=== PATIENT | male | born 1940 | race Caucasian/White ===

== ENCOUNTER 2016-10-17 08:38 | Emergency (ER) | payer OTHER, BC ==
[~2016-10-17] VITALS: Ht 177.8 cm; Wt 89.6 kg
[~2016-10-17 08:38] MED LIST: ASPEC81 PO; FISHOIL PO; LANS15CA6 PO; METO-551 PO; MULT-506 PO; NITR0.4S UT; SILO8CAP PO; THIA100T11 PO; red yeast rice PO
[2016-10-17 08:44] VITALS: Ht 177.8 cm; Wt 89.6 kg
[2016-10-17 08:50] VITALS: O2SAT 95
[2016-10-17] MEDS ORDERED: ASPI81TA28 PO (09:21)
[2016-10-17] MEDS ORDERED: OMEG10007 PO (09:21)
[2016-10-17 09:24] LABS: BASO % 0.2 %; BASO ABS # 0.02 K/uL (0-0.2); COMPLETE YES; EOS % 0.2 %; HEMATOCRIT 40.7 % (42-52); IG% 0.2 %; LYMPH % 8.3 %; LYMPH ABS # 0.78 K/uL (1.2-3.4); MEAN CELL VOLUME 81.6 fL (80-100); MEAN CORPUSCULAR HEMOGLOBIN 28.9 pg (25-34); MEAN CORPUSCULAR HGB CONC 35.4 g/dl (32-36); MEAN PLATELET VOLUME 9.4 fL (7.4-10.4); MONO % 5.9 %; NEUT % 85.2 %; PLATELET COUNT 217 K/uL (130-400); RED BLOOD COUNT 4.99 M/uL (4.7-6.1); WHITE BLOOD COUNT 9.37 K/uL (4.8-10.8)
--- NOTE | 2016-10-17 09:33 | EMERGENCY ROOM VISIT NOTE ---
History Report prepared by Giancarlo: Cathy Perez Under the Supervision of: Dr. Judy Perez M.D. First contact with patient: 08:58 Chief Complaint: CHEST PAIN Stated Complaint: CHEST PAIN,SWEATING Nursing Triage Summary: pt reports cough, congestion X 4 days , with chest pain starting 2 days ago last night cold sweats , pt reports " I feel miserable " + mucus production, yellow brown in color, History of Present Illness The patient is a 75 year old male who presents to the Emergency Room with complaints of persistent chest pain that started two days ago. He rates his discomfort as a 9/10 in severity. The patient is also experiencing a productive cough with yellow-brown sputum and sinus congestion that started 3 days ago. Additionally, the patient experienced "cold sweats" last night and he states that he is also experiencing generalized weakness. The patient reports that he experiences epigastric abdominal pain with coughing. He adds that he has a history of GERD. Source of History: patient Onset: 2 days ago Position: chest Symptom Intensity: 9/10 Timing: other (persistent) Associated Symptoms: + abdominal pain (epigastric, with coughing), + cough ( productive with yellow-brown sputum), + weakness (generalized) Note: sinus congestion, "cold sweats" Review of Systems See HPI for pertinent positives & negatives. A total of 10 systems reviewed and were otherwise negative. Past Medical & Surgical Medical Problems: (1) Cardiac stent placement x3 (2) Heart disease Surgical Problems: (1) H/O cardiac catheterization Family History Heart disease Social History Smoking Status: Former Smoker Alcohol Use: occasionally Marital Status: Occupation Status: retired Current/Historical Medications Scheduled Aspirin (Aspirin Ec), 81 MG PO DAILY Azithromycin (Zithromax Z-John), 0 PO UD Lansoprazole (Prevacid), 30 MG PO DAILY Metoprolol Tartrate (Lopressor), 50 MG PO DAILY Multivitamin (Multivitamin), 1 TAB PO DAILY Nitroglycerin (Nitrostat), 0.4 MG UT PRN Oseltamivir (Tamiflu), 75 MG PO DAILY Silodosin (Rapaflo), 8 MG PO HS Thiamine Hcl (Vitamin B-1), 100 MG PO DAILY [red yeast rice], 1 TAB PO DAILY PRN Miscellaneous Medications Fish Oil ([place]-3), 1 CAP PO Allergies Coded Allergies: Ezetimibe (Verified Adverse Reaction, Unknown, MYOPATHY, 10/17/16) Statins (Verified Adverse Reaction, Unknown, MYOPATHY, 10/17/16) Physical Exam Vital Signs Date Time Temp Pulse Resp B/P Pulse Ox O2 Delivery O2 Flow Rate FiO2 10/17/16 12:08 37.9 75 23 111/63 95 10/17/16 11:58 75 23 111/63 95 10/17/16 11:53 77 28 96 10/17/16 11:48 77 26 95 10/17/16 11:43 76 0 95 10/17/16 11:38 77 0 95 10/17/16 11:33 77 29 95 10/17/16 11:28 75 30 124/61 96 10/17/16 11:23 76 26 94 10/17/16 11:18 73 27 94 10/17/16 11:13 74 10 97 10/17/16 11:08 122/67 10/17/16 11:05 78 31 90 Nasal Cannula 2.0 10/17/16 11:00 77 30 91 10/17/16 09:52 77 24 132/74 96 Room Air 10/17/16 09:51 94 10/17/16 08:50 95 Room Air 10/17/16 08:47 74 10/17/16 08:44 37.9 74 20 144/77 96 Room Air Physical Exam CONSTITUTIONAL: The patient is in mild distress. Patient appears non-toxic. HEENT: No icterus, moist mucous membranes NECK: No meningismus, trachea is midline. CARDIOVASCULAR: Regular rate, normal perfusion RESPIRATORY: Unlabored breathing. Clear to auscultation. GASTROINTESTINAL: Non-tender GENITOURINARY: No flank tenderness MUSCULOSKELETAL: Full range of motion NEUROLOGIC: No acute gross focal deficits. PSYCHIATRIC: Normal affect SKIN: Normal for ethnicity. Medical Decision & Procedures ER Provider Diagnostic Interpretation: X-ray results as stated below per interpretation by me and the radiologist. CHEST 2 VIEWS ROUTINE IMPRESSION: No acute cardiopulmonary findings. Electronically signed by: Braeden Alcantar M.D. 10/17/2016 9:51 AM Dictated Date/Time: 10/17/2016 9:50 AM Laboratory Results 10/17/16 08:53 Red Blood Count 4.99, Mean Corpuscular Volume 81.6, Mean Corpuscular Hemoglobin 28.9, Mean Corpuscular Hemoglobin Concent 35.4, Mean Platelet Volume 9.4, Neutrophils (%) (Auto) 85.2, Lymphocytes (%) (Auto) 8.3, Monocytes (%) (Auto) 5.9, Eosinophils (%) (Auto) 0.2, Basophils (%) (Auto) 0.2, Neutrophils # (Auto) 7.98, Lymphocytes # (Auto) 0.78, Monocytes # (Auto) 0.55, Eosinophils # (Auto) 0.02, Basophils # (Auto) 0.02 10/17/16 08:53 Test 10/17/16 08:53 10/17/16 09:10 White Blood Count 9.37 K/uL (4.8-10.8) Red Blood Count 4.99 M/uL (4.7-6.1) Hemoglobin 14.4 g/dL (14.0-18.0) Hematocrit 40.7 % (42-52) Mean Corpuscular Volume 81.6 fL (80-100) Mean Corpuscular Hemoglobin 28.9 pg (25-34) Mean Corpuscular Hemoglobin Concent 35.4 g/dl (32-36) Platelet Count 217 K/uL (130-400) Mean Platelet Volume 9.4 fL (7.4-10.4) Neutrophils (%) (Auto) 85.2 % Lymphocytes (%) (Auto) 8.3 % Monocytes (%) (Auto) 5.9 % Eosinophils (%) (Auto) 0.2 % Basophils (%) (Auto) 0.2 % Neutrophils # (Auto) 7.98 K/uL (1.4-6.5) Lymphocytes # (Auto) 0.78 K/uL (1.2-3.4) Monocytes # (Auto) 0.55 K/uL (0.11-0.59) Eosinophils # (Auto) 0.02 K/uL (0-0.5) Basophils # (Auto) 0.02 K/uL (0-0.2) RDW Standard Deviation 39.8 fL (36.4-46.3) RDW Coefficient of Variation 13.3 % (11.5-14.5) Immature Granulocyte % (Auto) 0.2 % Immature Granulocyte # (Auto) 0.02 K/uL (0.00-0.02) Anion Gap 13.0 mmol/L (3-11) Est Creatinine Clear Calc Drug Dose 54.5 ml/min Estimated GFR () 61.4 Estimated GFR (Non- 53.0 BUN/Creatinine Ratio 9.7 (10-20) Calcium Level 9.3 mg/dl (8.5-10.1) Influenza Type A Antigen POS for Influ A (NEG) Influenza Type B Antigen Neg for Influ B (NEG) Labs reviewed by ED physician. Medications Administered Medications (Trade) Dose Ordered Sig/[place] Route Start Time Stop Time Status Last Admin Dose Admin Acetaminophen (Tylenol Tab) 1,000 mg NOW STAT PO 10/17/16 11:56 10/17/16 11:57 DC 10/17/16 12:05 1,000 MG Ibuprofen (Advil Tab) 400 mg NOW STAT PO 10/17/16 11:56 10/17/16 11:57 DC 10/17/16 12:05 400 MG ECG Indication: chest pain Rate (beats per minute): 75 Rhythm: sinus rhythm Findings: nonspecific-ST abn, no ectopy, other (normal axis) ED Course 09: Past medical records reviewed. The patient was evaluated in room A9. A complete history and physical examination was performed. 1153: Upon reexamination the patient is doing well. I discussed results and treatment plan with the patient. He verbalizes agreement and understanding. The patient is ready for discharge. Medical Decision Differential diagnoses include but are not limited to; viral syndrome, pneumonia. 75 year presented to the emergency room with upper respiratory symptoms as well as cough. Positive flu. Chest x-ray negative for pneumonia. Vitals within normal limits. Screening labs negative. Discharged Tamiflu Z-John. Advised to take Tylenol Motrin every 6 hours. Impression Primary Impression: Influenza A Scribe Attestation The scribe's documentation has been prepared under my direction and personally reviewed by me in its entirety. I confirm that the note above accurately reflects all work, treatment, procedures, and medical decision making performed by me. Departure Information Dispostion Home / Self-Care Prescriptions Azithromycin (ZITHROMAX Z-JOHN) 250 Mg Tab 0 PO UD, #1 PKT Prov: Judy Perez MD 10/17/16 Oseltamivir (Tamiflu) 75 Mg Cap 75 MG PO DAILY, #10 CAP Prov: Judy Perez MD 10/17/16 Referrals Saurav Lucero M.D. (PCP) Forms HOME CARE DOCUMENTATION FORM, IMPORTANT VISIT INFORMATION Patient Instructions ED Flu, My [facility]
[2016-10-17 09:38] LABS: BUN/CREATININE RATIO 9.7 (10-20); CALCIUM 9.3 mg/dl (8.5-10.1); CREATININE 1.3 mg/dl (0.60-1.40); POTASSIUM 3.8 mmol/L (3.5-5.1)
--- NOTE | 2016-10-17 09:52 | DIAGNOSTIC IMAGING REPORT ---
CHEST 2 VIEWS ROUTINE CLINICAL HISTORY: Cough. Fever. COMPARISON STUDY: Chest radiograph December 30, 2014. FINDINGS: Lung volumes are normal. There is no pneumothorax or pleural effusion. Cardiac size is normal. Mediastinal contours are normal. There is no evidence of pulmonary edema. IMPRESSION: No acute cardiopulmonary findings. Electronically signed by: Braeden Alcantar M.D. 10/17/2016 9:51 AM Dictated Date/Time: 10/17/2016 9:50 AM
[2016-10-17] MEDS ORDERED: AZITTAB PO (11:51)
[2016-10-17] MEDS ORDERED: OSEL75CA12 PO (11:51)
[2016-10-17] MEDS ORDERED: IBUPROFEN 200 MG TAB PO STA (11:56)
[2016-10-17] MEDS ORDERED: ACETAMINOPHEN 500 MG TAB PO STA (11:56)
[2016-10-17 12:08] VITALS: BP 111/63; PULSE 75; TEMP 37.9; O2SAT 95
== END 2016-10-17 12:10 | disposition home or self-care (01) ==
LOC: C.EDB 08:39 → C.EDA 12:10
DX: J11.1 Influenza due to unidentified influenza virus with other respiratory manifestations (principal); I51.9 Heart disease, unspecified; Z87.891 Personal history of nicotine dependence; Z79.82 Long term (current) use of aspirin; Z82.49 Family history of ischemic heart disease and other diseases of the circulatory system

== ENCOUNTER 2017-06-03 12:21 | Emergency (ER) | payer OTHER, BC ==
[~2017-06-03] VITALS: Ht 177.8 cm; Wt 87.6 kg
[~2017-06-03 12:21] MED LIST changes: -ASPEC81 PO; +ASPI81TA28 PO; -FISHOIL PO; +OMEG10007 PO
[2017-06-03 12:28] VITALS: TEMP 36.8; Ht 177.8 cm; Wt 87.6 kg
[2017-06-03 12:50] VITALS: O2SAT 94
[2017-06-03] MEDS ORDERED: OPTIRAY 320 IV PRN (13:30)
[2017-06-03 13:53] LABS: BASO % 0.2 %; BASO ABS # 0.02 K/uL (0-0.2); COMPLETE YES; EOS % 1.1 %; HEMATOCRIT 40.4 % (42-52); IG% 0.1 %; LYMPH % 23.2 %; LYMPH ABS # 1.95 K/uL (1.2-3.4); MEAN CELL VOLUME 84.5 fL (80-100); MEAN CORPUSCULAR HEMOGLOBIN 28.9 pg (25-34); MEAN CORPUSCULAR HGB CONC 34.2 g/dl (32-36); MEAN PLATELET VOLUME 9.6 fL (7.4-10.4); MONO % 6.2 %; NEUT % 69.2 %; PLATELET COUNT 252 K/uL (130-400); RED BLOOD COUNT 4.78 M/uL (4.7-6.1)
--- NOTE | 2017-06-03 14:06 | DIAGNOSTIC IMAGING REPORT ---
CHEST ONE VIEW PORTABLE HISTORY: Evaluate Fever/Sepsis COMPARISON: Chest 10/17/2016. FINDINGS: The lungs are clear. Cardiac silhouette is normal in size. No pleural effusions. No pneumothorax. IMPRESSION: No acute process. Electronically signed by: Blas Knight M.D. 06/03/2017 2:05 PM Dictated Date/Time: 06/03/2017 2:02 PM
[2017-06-03 14:12] LABS: ALT/SGPT 25 U/L (12-78); AST/SGOT 14 U/L (15-37); BLOOD UREA NITROGEN 12 mg/dl (7-18); BUN/CREATININE RATIO 10.6 (10-20); CALCIUM 9.3 mg/dl (8.5-10.1); CARBON DIOXIDE 22 mmol/L (21-32); CHLORIDE 108 mmol/L (98-107); GLUCOSE 100 mg/dl (70-99); POTASSIUM 4.1 mmol/L (3.5-5.1); SODIUM 139 mmol/L (136-145)
[2017-06-03 14:17] LABS: ALKALINE PHOSPHATASE 103 U/L (45-117); CKMB/CK RATIO 1.8 (0-3.0)
--- NOTE | 2017-06-03 15:15 | DIAGNOSTIC IMAGING REPORT ---
HEAD CTA HISTORY: Left-sided head pain. TECHNIQUE: Multiaxial CT images of the head were performed both before and after the intravenous administration of contrast to evaluate the major cerebral vessels. Maximum intensity projection images were also obtained. A dose lowering technique was utilized adhering to the principles of ALARA. COMPARISON: Brain MRI 02/26/2015. FINDINGS: There is no mass, hematoma, midline shift, or acute infarct. Mild to moderate apical carotid plaque within the bilateral carotid siphons. There is 70-80% stenosis within the bilateral supraclinoid segments of the internal carotid arteries. Hypoplastic distal left vertebral artery. Otherwise, the distal vertebral arteries and basilar artery are widely patent. No significant stenosis, occlusion, or aneurysm within the bilateral ACAs, MCAs, or key attendant. Mild narrowing within the left carotid siphon due to the diffuse arthroscopic plaque. A 1.4 cm right posterior scalp nodule. This favors a sebaceous cyst. IMPRESSION: 1. No acute intracranial abnormality. 2. Approximately 70-80% focal stenosis within the supraclinoid segments of the bilateral internal carotid arteries. 3. No significant stenosis, occlusion, or aneurysm within the bilateral ACAs, MCAs, or key attendant. Electronically signed by: Blas Knight M.D. 06/03/2017 3:13 PM Dictated Date/Time: 06/03/2017 3:04 PM
--- NOTE | 2017-06-03 15:17 | DIAGNOSTIC IMAGING REPORT ---
CT NECK ANGIO WITH CONTRAST CLINICAL HISTORY: Left neck and head pain COMPARISON STUDY: No previous studies for comparison. TECHNIQUE: CT angiography was performed from the aortic arch to the skull base. MIP imaging was performed. The patient was scanned in a dynamic helical fashion during intravenous administration of 120 cc of Optiray 320. A dose lowering technique was utilized adhering to the principles of ALARA. CT DOSE: 1199.23 mGy.cm Technique: CT angiogram of the carotid and vertebral arteries was obtained using intravenous contrast and 3-D reconstruction. NASCET criteria was utilized. Findings: The right carotid revealed a 16% diameter origin stenosis, and no evidence of dissection. There is no evidence of aneurysm. The left carotid revealed a 33% diameter origin stenosis.. There is no evidence of aneurysm. There is no evidence of dissection. There is no evidence of left vertebral stenosis or dissection. The right vertebral artery is occluded at its origin and reconstitutes at the C5 level IMPRESSION: 1. 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 Less than 50% diameter stenoses of both internal carotid arteries 3. No evidence of left vertebral artery dissection or stenosis. Electronically signed by: Noe Vance M.D. 06/03/2017 3:16 PM Dictated Date/Time: 06/03/2017 3:06 PM
--- NOTE | 2017-06-03 15:51 | EMERGENCY ROOM VISIT NOTE ---
History Report prepared by Giancarlo: Juan Rao Under the Supervision of: Dr. Alexx Ivy D.O. First contact with patient: 13:08 Chief Complaint: CARDIAC ASSESSMENT Stated Complaint: SOB, NECK PAIN, LIKE WHEN HE HAD HEART ATTACK BEFO History of Present Illness The patient is a 76 year old male who presents to the Emergency Room with complaints of worsening left sided neck pain for the past couple of days that feels like cramping. The patient states that this pain is similar to last time that he had a heart attack, and this heart attack was a few years ago and stents were placed. The patient additionally states that he has eye pain and head pain. The patient has an extensive family history of heart problems. Source of History: patient Onset: a couple of days ago Position: neck (left sided) Quality: cramping Timing: worsening Note: Associated symptoms: eye and head pain Review of Systems See HPI for pertinent positives & negatives. A total of 10 systems reviewed and were otherwise negative. Past Medical & Surgical Medical Problems: (1) Cardiac stent placement x3 (2) Heart disease Surgical Problems: (1) H/O cardiac catheterization Family History Heart disease Social History Smoking Status: Never Smoker Alcohol Use: occasionally Marital Status: Occupation Status: retired Current/Historical Medications Scheduled Aspirin (Aspirin Ec), 81 MG PO DAILY Lansoprazole (Prevacid), 30 MG PO DAILY Multivitamin (Multivitamin), 1 TAB PO DAILY Nitroglycerin (Nitrostat), 0.4 MG UT PRN Silodosin (Rapaflo), 4 MG PO BID Thiamine Hcl (Vitamin B-1), 100 MG PO DAILY [red yeast rice], 1 TAB PO DAILY PRN Miscellaneous Medications Fish Oil ([place]-3), 1 CAP PO Allergies Coded Allergies: Ezetimibe (Verified Adverse Reaction, Unknown, MYOPATHY, 10/17/16) Statins (Verified Adverse Reaction, Unknown, MYOPATHY, 10/17/16) Physical Exam Vital Signs Date Time Temp Pulse Resp B/P (MAP) Pulse Ox O2 Delivery O2 Flow Rate FiO2 06/03/17 15:00 58 21 142/90 98 Room Air 06/03/17 14:00 60 23 123/91 95 Room Air 06/03/17 12:50 63 20 139/78 94 Room Air 06/03/17 12:50 94 Room Air 06/03/17 12:50 94 Room Air 06/03/17 12:48 66 06/03/17 12:28 36.8 72 18 166/85 95 Room Air Physical Exam CONSTITUTIONAL/VITAL SIGNS: Reviewed / noted above. GENERAL: Non-toxic in appearance. INTEGUMENTARY: Warm, dry, and [place]. HEAD: Normocephalic. EYES: without scleral icterus or trauma. ENT/OROPHARYNX: clear and moist. LYMPHADENOPATHY/NECK: Is supple without lymphadenopathy or meningismus. RESPIRATORY: Lungs clear and equal. CARDIOVASCULAR: Regular rate and rhythm. GI/ABDOMEN: Soft and nontender. No organomegaly or pulsatile mass. No rebound or guarding. Normal bowel sounds. EXTREMITIES: Warm and well perfused. BACK: No CVA tenderness. NEUROLOGICAL: Intact without focal deficits. PSYCHIATRIC: normal affect. MUSCULOSKELETAL: Normally developed with good muscle tone. Medical Decision & Procedures ER Provider Diagnostic Interpretation: Radiology results as stated below per my review and radiologist interpretation: HEAD CTA HISTORY: Left-sided head pain. TECHNIQUE: Multiaxial CT images of the head were performed both before and after the intravenous administration of contrast to evaluate the major cerebral vessels. Maximum intensity projection images were also obtained. A dose lowering technique was utilized adhering to the principles of ALARA. COMPARISON: Brain MRI 02/26/2015. FINDINGS: There is no mass, hematoma, midline shift, or acute infarct. Mild to moderate apical carotid plaque within the bilateral carotid siphons. There is 70-80% stenosis within the bilateral supraclinoid segments of the internal carotid arteries. Hypoplastic distal left vertebral artery. Otherwise, the distal vertebral arteries and basilar artery are widely patent. No significant stenosis, occlusion, or aneurysm within the bilateral ACAs, MCAs, or senior courtroom clerk. Mild narrowing within the left carotid siphon due to the diffuse arthroscopic plaque. A 1.4 cm right posterior scalp nodule. This favors a sebaceous cyst. IMPRESSION: 1. No acute intracranial abnormality. 2. Approximately 70-80% focal stenosis within the supraclinoid segments of the bilateral internal carotid arteries. 3. No significant stenosis, occlusion, or aneurysm within the bilateral ACAs, MCAs, or senior courtroom clerk. Electronically signed by: Blas Knight M.D. 06/03/2017 3:13 PM Dictated Date/Time: 06/03/2017 3:04 PM CHEST ONE VIEW PORTABLE HISTORY: Evaluate Fever/Sepsis COMPARISON: Chest 10/17/2016. FINDINGS: The lungs are clear. Cardiac silhouette is normal in size. No pleural effusions. No pneumothorax. IMPRESSION: No acute process. Electronically signed by: Blas Knight M.D. 06/03/2017 2:05 PM Dictated Date/Time: 06/03/2017 2:[address] NECK ANGIO WITH CONTRAST CLINICAL HISTORY: Left neck and head pain COMPARISON STUDY: No previous studies for comparison. TECHNIQUE: CT angiography was performed from the aortic arch to the skull base. MIP imaging was performed. The patient was scanned in a dynamic helical fashion during intravenous administration of 120 cc of Optiray 320. A dose lowering technique was utilized adhering to the principles of ALARA. CT DOSE: 1199.23 mGy.cm Technique: CT angiogram of the carotid and vertebral arteries was obtained using intravenous contrast and 3-D reconstruction. NASCET criteria was utilized. Findings: The right carotid revealed a 16% diameter origin stenosis, and no evidence of dissection. There is no evidence of aneurysm. The left carotid revealed a 33% diameter origin stenosis.. There is no evidence of aneurysm. There is no evidence of dissection. There is no evidence of left vertebral stenosis or dissection. The right vertebral artery is occluded at its origin and reconstitutes at the C5 level IMPRESSION: 1. 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 Less than 50% diameter stenoses of both internal carotid arteries 3. No evidence of left vertebral artery dissection or stenosis. Electronically signed by: Noe Vance M.D. 06/03/2017 3:16 PM Dictated Date/Time: 06/03/2017 3:06 PM Laboratory Results 06/03/17 13:00 Red Blood Count 4.78, Mean Corpuscular Volume 84.5, Mean Corpuscular Hemoglobin 28.9, Mean Corpuscular Hemoglobin Concent 34.2, Mean Platelet Volume 9.6, Neutrophils (%) (Auto) 69.2, Lymphocytes (%) (Auto) 23.2, Monocytes (%) (Auto) 6.2, Eosinophils (%) (Auto) 1.1, Basophils (%) (Auto) 0.2, Neutrophils # (Auto) 5.81, Lymphocytes # (Auto) 1.95, Monocytes # (Auto) 0.52, Eosinophils # (Auto) 0.09, Basophils # (Auto) 0.02 06/03/17 13:00 Test 06/03/17 13:00 White Blood Count 8.40 K/uL (4.8-10.8) Red Blood Count 4.78 M/uL (4.7-6.1) Hemoglobin 13.8 g/dL (14.0-18.0) Hematocrit 40.4 % (42-52) Mean Corpuscular Volume 84.5 fL (80-100) Mean Corpuscular Hemoglobin 28.9 pg (25-34) Mean Corpuscular Hemoglobin Concent 34.2 g/dl (32-36) Platelet Count 252 K/uL (130-400) Mean Platelet Volume 9.6 fL (7.4-10.4) Neutrophils (%) (Auto) 69.2 % Lymphocytes (%) (Auto) 23.2 % Monocytes (%) (Auto) 6.2 % Eosinophils (%) (Auto) 1.1 % Basophils (%) (Auto) 0.2 % Neutrophils # (Auto) 5.81 K/uL (1.4-6.5) Lymphocytes # (Auto) 1.95 K/uL (1.2-3.4) Monocytes # (Auto) 0.52 K/uL (0.11-0.59) Eosinophils # (Auto) 0.09 K/uL (0-0.5) Basophils # (Auto) 0.02 K/uL (0-0.2) RDW Standard Deviation 40.2 fL (36.4-46.3) RDW Coefficient of Variation 13.1 % (11.5-14.5) Immature Granulocyte % (Auto) 0.1 % Immature Granulocyte # (Auto) 0.01 K/uL (0.00-0.02) Erythrocyte Sedimentation Rate 8 mm/hr (0-14) Anion Gap 9.0 mmol/L (3-11) Est Creatinine Clear Calc Drug Dose 58.1 ml/min Estimated GFR () 74.7 Estimated GFR (Non- 64.4 BUN/Creatinine Ratio 10.6 (10-20) Calcium Level 9.3 mg/dl (8.5-10.1) Total Bilirubin 0.6 mg/dl (0.2-1) Direct Bilirubin 0.1 mg/dl (0-0.2) Aspartate Amino Transf (AST/SGOT) 14 U/L (15-37) Alanine Aminotransferase (ALT/SGPT) 25 U/L (12-78) Alkaline Phosphatase 103 U/L (45-117) Total Creatine Kinase 110 U/L (39-308) Creatine Kinase MB 2.0 ng/ml (0.5-3.6) Creatine Kinase MB Ratio 1.8 (0-3.0) Troponin I < 0.015 ng/ml (0-0.045) Total Protein 7.4 gm/dl (6.4-8.2) Albumin 4.1 gm/dl (3.4-5.0) Lipase 193 U/L (73-393) Laboratory results as stated above per my review. ECG Indication: other (neck pain) Rate (beats per minute): 64 Rhythm: normal sinus Findings: no ectopy, other (No acute injury) ED Course 1308: Previous medical records were reviewed. The patient was evaluated in room C11. A complete history and physical examination was performed. 1536: On reevaluation, the patient is doing well. I discussed the results and findings with the patient. He verbalized agreement of the treatment plan. He was discharged home. Medical Decision the differential was considered includes acute myocardial infarction, acute coronary syndrome, myocarditis, pericarditis, pericardial effusions /tamponade, esophageal perforation, thoracic aortic dissection, pulmonary embolism, pneumonia, pneumothorax, pancreatitis, shingles, acute cholecystitis, perforated abdominal viscus. This is a 76-year-old male who presents to the ED with a chief complaint of left -sided neck pain. The patient reports left-sided head pain and neck pain. This is been going on for the past several days. It seemed to be getting a little worse. 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 The patient's symptoms seem to be a little worse with certain movements. It is worse with palpation in the left soft tissue/muscular area. Exam was otherwise unremarkable. There is no lymphadenopathy, swelling or evidence of infection. Blood pressure was initially slightly elevated. He was told to follow-up for this. Sedimentation rate is 8, CBC is normal, complete metabolic panels normal , chest x-ray did not show acute disease. CT angiogram of the head and neck reveals some right vertebral artery occlusion with reconstitution. There is less than 50% stenosis of both carotid arteries. CT scan of the head reveals 70 -80% focal stenosis in the supraclinoid areas bilaterally which speaking with radiology, these are chronic findings. Medication Reconcilliation Current Medication List: was personally reviewed by me Blood Pressure Screening Patient's blood pressure: Elevated blood pressure Blood pressure disposition: Elevated BP felt to be situational Impression Primary Impression: Neck pain Scribe Attestation The scribe's documentation has been prepared under my direction and personally reviewed by me in its entirety. I confirm that the note above accurately reflects all work, treatment, procedures, and medical decision making performed by me. Departure Information Dispostion Home / Self-Care Referrals Saurav Lucero M.D. (PCP) Patient Instructions My [facility] Additional Instructions Take Tylenol as needed for pain. Follow-up with your doctor for further care and evaluation in 1-5 days. Return to the emergency department for worsening or new symptoms or any concerns. You have been examined and treated today on an emergency basis only. This is not a substitute for, or an effort to provide, complete comprehensive medical care. It is impossible to recognize and treat all injuries or illnesses in a single emergency department visit. It is therefore important that you follow up closely with your doctor. Call as soon as possible for an appointment.
[2017-06-03 16:17] VITALS: BP 158/91; PULSE 63; O2SAT 98
== END 2017-06-03 16:15 | disposition home or self-care (01) ==
LOC: C.EDB 12:23 → C.EDC 16:15
DX: M54.2 Cervicalgia (principal); I51.9 Heart disease, unspecified; Z98.61 Coronary angioplasty status; Z79.82 Long term (current) use of aspirin; Z79.899 Other long term (current) drug therapy; Z88.8 Allergy status to other drugs, medicaments and biological substances; Z82.49 Family history of ischemic heart disease and other diseases of the circulatory system

== ENCOUNTER 2019-10-10 12:02 | Observation (INO) ==
[2019-10-10 13:37] LABS: Basophils # (auto) 0.04 K/uL (0-0.2); Basophils % (auto) 0.5 %; Eosinophils # (auto) 0.11 K/uL (0-0.5); Eosinophils % (auto) 1.3 %; Immature Granulocytes # (auto) 0.01 K/uL (0.00-0.02); Immature Granulocytes % (auto) 0.1 %; Lymphocytes # (auto) 1.79 K/uL (1.2-3.4); Lymphocytes % (auto) 21.3 %; Mean Corpuscular Hemoglobin 29.2 pg (25-34); Mean Corpuscular Hgb Conc 34.1 g/dL (32-36); Mean Corpuscular Volume 85.4 fL (80-100); Mean Platelet Volume 9.6 fL (7.4-10.4); Monocytes # (auto) 0.59 K/uL (0.11-0.59); Neutrophils # (auto) 5.86 K/uL (1.4-6.5); Neutrophils % (auto) 69.8 %; Platelet Count 290 K/uL (130-400); RDW Standard Deviation 40.6 fL (36.4-46.3)
[2019-10-10 13:55] LABS: Albumin Level 3.8 gm/dl (3.4-5.0); BUN Creatinine Ratio 8.6 (10-20); Calcium 9.4 mg/dl (8.5-10.1); Est GFR (African American) 76.1; Est GFR (Non-African American) 65.7; Potassium 4.2 mmol/L (3.5-5.1)
[2019-10-10 14:03] LABS: Albumin Globulin Ratio 1.1 (0.9-2); Bilirubin,Total 0.7 mg/dl (0.2-1); Globulin 3.5 gm/dl (2.5-4.0); Total Protein 7.3 gm/dl (6.4-8.2); Troponin I 0.083 ng/ml (0-0.045)
[2019-10-10] MEDS ORDERED: IOVERSOL 100ml IV PRN (14:47)
--- NOTE | 2019-10-10 14:56 | Electrocardiogram Report ---
Test Reason : Blood Pressure : / mmHG Vent. Rate : 063 BPM Atrial Rate : 063 BPM P-R Int : 216 ms QRS Dur : 142 ms QT Int : 424 ms P-R-T Axes : 083 -44 080 degrees QTc Int : 433 ms Sinus rhythm with 1st degree A-V block Left axis deviation Right bundle branch block Abnormal ECG When compared with ECG of 12-MAR-2019 14:32, No significant change was found Confirmed by Ho Huff ([id number]) on 10/10/2019 2:55:31 PM Referred By: REFERRED SELF Confirmed By:Ho Huff
--- NOTE | 2019-10-10 15:19 | CT Scan Report ---
CT abd pelvis IV con only CLINICAL HISTORY: 78 years-old Male presenting with flank pain. TECHNIQUE: Multidetector CT of the abdomen and pelvis was performed after the administration of intra venous contrast. IV contrast: 94 mL of Optiray 320. One or more dose lowering techniques were used co nsistent with the principles of ALARA (as low as reasonably achievable), including automatic exposure control, mA or kV adjustment to individual patient size, and/or use of iterative reconstruction. COMPARISON: 03/05/2016. CT DOSE (mGy.cm): The estimated cumulative dose is 395.07 mGy.cm. FINDINGS: Powder Operator topogram: Cholecystectomy clips. Lung bases: Normal heart size. Coronary artery calcification. No pericardial or pleural effusion. Min imal dependent changes likely atelectasis. Liver: Normal morphology. No liver lesion. Patent hepatic vasculature. Biliary: No intrahepatic or extrahepatic biliary ductal dilatation. Gallbladder surgically absent. Pancreas: Mild parenchymal atrophy. Spleen: Normal. Adrenal glands: Normal. Kidneys and ureters: Normal. No hydronephrosis. Bladder: Mild circumferential bladder wall thickening. Pelvic organs: Prostate enlargement likely secondary to benign prostatic hyperplasia. Bowel: Mild diverticulosis of the proximal sigmoid and distal descending colon without wall thickenin g or pericolonic inflammatory change. The appendix is normal. No bowel obstruction. Duodenal divertic ulum noted at the level of the horizontal portion. Several loops of small bowel containing feces. Peritoneal cavity: No free fluid or intraperitoneal gas. 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 Lymph nodes: No enlarged lymph nodes in the abdomen or pelvis. Vasculature: Atherosclerosis of the normal caliber abdominal aorta. IVC patent. Abdominal wall: Normal. Musculoskeletal: Degenerative changes of the spine and sacroiliac joints. IMPRESSION: 1. No acute intra-abdominal pathology. 2. Feces in several loops of small bowel may indicate delayed transit or bacterial overgrowth. No manuelito wel obstruction. 3. Mild diverticulosis coli. No diverticulitis. 4. Prostatomegaly with mild chronic bladder outlet obstruction. ACT 112: Negative or not required by law. Electronically signed by: Saurav Brennan M.D. 10/10/2019 3:17 PM
[2019-10-10] MEDS ORDERED: ASPIRIN CHEW 324 MG PO STA (15:28)
[2019-10-10] MEDS ORDERED: ASPIRIN CHEW 324 MG ONE (15:40)
--- NOTE | 2019-10-10 18:32 | History & Physical Report ---
Date of Service October 10, 2019 Assessment & Plan (1) Chest pain, rule out acute myocardial infarction: Admit to PCU with maintenance mechanic 2nd shift Serial troponins Nitro SL for chest pain PRN NPO after midnight in case he requires stress test or cardiac cath (2) Unstable angina: Patient having ongoing intermittent chest pain at rest (although usually when he gets worked up with wrestling). Concerning for unstable angina given cardiac history. Will defer to cardiology regarding need for inpatient stress testing, he would not be able to do treadmill due to osteoarthritis. (3) Coronary artery disease: NSTEMI 06/2010 with x1 JAZMÍN to D1 and 1 JAZMÍN to OM Continue ASA, unclear why patient is not on BB but given current HR suspect due to bradycardia, intolerant to statins (although actual which ones he has tried is uncertain) (4) Dyslipidemia: Repeat lipid panel in AM. If very elevated he may be eligible for PCSK9 inhibitor given intolerance to statins as above. (5) Elevated PSA: [facility] nurse navigator consult placed to potentially expedite his urology appointment. The patient is more concerned about prostate cancer than his heart. (6) BPH (benign prostatic hyperplasia): Patient appears to be in denial about his lower urinary tract symptoms of poor stream, urinary frequency. Potentially contributing towards his mild chronic bladder outlet obstruction. Will defer introduction of 5 Alpha-reductase inhibitor to his urologists appointment. (7) Suprapubic pain: Patient "knows" this is his prostate causing his pain and he feels he is ridden with prostate cancer. I explained nothing was seen on his CT with regards to metastatic disease and we would set him up with an outpatient appointment with urology. UA showed no infection. He refused prostate exam on several occasions as he says it always hurt so it will still be tender now on exam. In lieu of prostate exam his WBC/UA WNL, no fevers or chills therefore I do not feel this represents an acute bacterial prostatitis. Large differential remains including: Bladder spasms related to urinary frequency from BPH Chronic prostatitis Interstitial cystitis Lumbar radiculopathy Mesenteric panniculitis Given pending cardiac workup I would avoid NSAIDs currently, however this would treat both potential prostatitis and cystitis and have him follow up with urology. Although prednisone would probably be better for mesenteric panniculitis if this is thought to be causing his pain. (8) Abdominal pain: This was the main reason he was sent over from the [place] due to concerns for urinary retention because of his enlarged prostate or kidney stones. He has neither. Despite this he does have significant b/l CVA tenderness which does appear deeper than his muscles - ?mesenteric panniculitis. Less severe he has epigastric and RUQ pain on deep palpation which he feels is different to his more acute suprapubic and CVA tenderness. Will consult GI for opinion and possible treatment of mesenteric panniculitis as I am not familiar with treating this and whether his pain could be related to this. (9) Mesenteric panniculitis: as above. unclear if this is causing his pain given the only finding on CT other than slow transit through his bowel. (10) GERD (gastroesophageal reflux disease): Possible cause of epigastric pain with gastritis but would not explain his CVA tenderness. GI consulted - mainly for above abdominal pain but if cardiac source of chest pain ruled out potentially may need EGD since he is on both PPI and H2 albert (11) DVT prophylaxis: SCDs. If staying beyond tomorrow I would consider starting chemical prophylaxis. (12) Discharge planning issues: Needs urology appointment set up on discharge. History of Present Illness Chief Complaint: Suprapubic pain Primary Care Provider: Saurav Lucero MD Germán Daniel is a 78 year old male who presents to the ER at the advice from his physician at the [place] due to bilateral CVA and suprapubic tenderness on palpation. I was unable to get much of a history from the patient as I mentioned his UA had not been resulted yet and he was insisting on being admitted for a prostate biopsy that I told him there was no way he would be able to have. He threatened to leave on several occasions saying I was not helping him and he was going to of prostate cancer. He did not care if he of a heart attack but he did not want to of prostate cancer in pain. It took over 60 minutes with the patient including a patient requested call to our plan consultant urologist Dr Barbosa to make him understand his acute problem was his heart and the reasons I did not feel his prostate was an acute issue right now. As such gaining much of a history from the patient was limited as he was not forthcoming with answering my questions and had his own agenda which appears to be his suprapubic pain is due to his prostate and he feels this is cancerous and needs to be dealt with now in order to get out of pain. With regards to his chest pain - this was not the reason for his visit to the ER however he had an elevated troponin and admits to having intermittent chest pains at rest and frequently on light exertion lasting for minutes at a time which is relieved with rest. No radiation. No currently in pain. Episodes at rest come on when he is worked up. With regards to his suprapubic "prostate" and CVA tenderness - as far as I can gather this started 3-4 weeks ago. No related to bowel movements or passing urine but worse on deep palpation. Constant ache. No nausea, vomiting, constipation, diarrhea or melena. Allergies Allergy/AdvReac Type Severity Reaction Status Date / Time ezetimibe AdvReac Unknown MYOPATHY Verified 09/13/19 09:28 Uktnmpc-Aee-Esw Reductase AdvReac Unknown MYOPATHY Verified 09/13/19 09:28 Inhibitor Home Medications Home Medications Medication Instructions Recorded Confirmed Type aspirin 81 mg PO HS 11/24/18 10/10/19 History multivitamin 1 tab PO QAM 11/24/18 10/10/19 History nitroglycerin [Nitrostat] 0.4 mg SUBLINGUAL UD 11/24/18 10/10/19 History omega 2-ehl-ygl-fish oil [Fish Oil] 1 cap PO QDL 11/24/18 10/10/19 History red yeast rice 600 mg PO QAM 11/24/18 10/10/19 History terazosin 1 mg PO BID 11/24/18 10/10/19 History vitamin B complex 1 tab PO QAM 11/24/18 10/10/19 History ranitidine HCl [Zantac] 150 mg PO BID #30 tab 03/12/19 10/10/19 Rx meloxicam 15 mg tablet 15 mg PO daily PRN #30 tab 07/24/19 10/10/19 Rx clonazepam 0.5 mg tablet 0.5 mg PO BID PRN #14 tab 08/27/19 10/10/19 Rx lansoprazole 30 mg capsule,delayed 30 mg PO BID 08/27/19 10/10/19 History release temazepam 15 mg capsule 15 mg PO HS PRN 08/27/19 10/10/19 History fluticasone propionate 50 2 sprays INTNAS DAILY #15.8 ml 09/13/19 10/10/19 Rx mcg/actuation nasal spray,suspension Past Med/Surg History Medical History Acid reflux (Chronic) Anxiety (Chronic) Chronic back pain (Chronic) Coronary artery disease Dyslipidemia Elevated PSA Heart attack (Chronic) Heart disease (Chronic) Hypertension No pertinent family history (Chronic) Weakness (Chronic) Surgical History H/O cardiac catheterization (Chronic) H/O heart artery stent (Chronic) History of bronchoscopy History of colonoscopy History of knee surgery right History of tonsillectomy S/P cholecystectomy (Chronic) Family History Father Myocardial infarction Other ASCVD (arteriosclerotic cardiovascular disease) Social History Preferred Language: Maori Communication Ability: Effective Visual Impairment: No Limitations Hearing Ability: Use of Hearing Aid Shagger Required: No Beliefs That Will Affect Care: None marital status: Current Living Situation: Family Current Living Situation Comment: Lives with son in 1 story house- 2 steps to enter the house current occupational status: retired Other Information That Helps Us Care for You: No Feels Safe at Home: Yes Safety Concerns: Feels Safe At This Time Smoking Status: Former smoker Tobacco Type: cigarettes and smokeless tobacco ; Do You Dip or Chew Tobacco: No ; Tobacco Cessation Education Requested by Patient: No Hx Alcohol Use: Yes Alcohol type: beer Alcohol Intake Frequency Comment: 2 beers a week Hx Substance Use: No Childhood Exposure to Second-Hand Smoke: Yes caffeine: Yes Dental Care, Regularly: No Physical Activity Frequency: 3-4 Times per Week Seatbelt Use: always Sunscreen Use: Yes Review of Systems Review of Systems: All systems reviewed & are unremarkable except as noted in HPI & below Physical Exam Constitutional: WD/WN, vitals as above Eyes: PERRL, conjunctivae normal, anicteric sclerae Neck: trachea midline, no thyromegaly Respiratory: normal respiratory effort, lungs clear to auscultation Cardiovascular: RRR, no murmur, no edema Gastrointestinal (Abdomen): Inspection/Auscultation: abdomen normal to inspection and normal bowel sounds; abdomen not distended Percussion/Palpation: + abdomen tender (suprapubic, epigastric and RUQ pain on deep palpation) and abdomen soft; no guarding and abdomen not rigid Musculoskeletal: no cyanosis or clubbing, extremities motor strength 5/5 Skin: no rashes, warm and dry Neurologic: moves all extremities and awake; no focal motor deficits and not confused Speech / Cognition: normal speech Motor/Sensory: no tremor, no pronator drift and no sensory deficit Psychiatric: Orientation: alert and oriented x 3 Affect: + irritable affect Mood: + irritable mood Genitourinary: + CVA tenderness (b/l equal) Lymphatic: no cervical or axillary lymphadenopathy Results & Data Vital Signs (Past 12 Hours) Vital Signs Temp Pulse Resp BP Pulse Ox 10/10/19 18:02 59 L 24 151/93 H 97 10/10/19 16:40 98 10/10/19 16:31 97 10/10/19 16:20 98 10/10/19 16:10 97 10/10/19 16:03 99 10/10/19 15:50 68 20 98 10/10/19 15:40 63 23 95 10/10/19 15:31 61 21 95 10/10/19 15:30 61 24 146/91 H 96 10/10/19 15:21 61 16 95 10/10/19 15:10 59 L 17 96 10/10/19 15:00 61 25 H 95 10/10/19 14:55 61 22 99 10/10/19 14:40 61 14 97 10/10/19 14:31 62 22 94 10/10/19 14:30 64 20 143/88 H 94 10/10/19 14:21 63 18 96 10/10/19 14:10 67 24 99 10/10/19 14:04 72 22 10/10/19 14:00 63 17 134/87 10/10/19 13:32 61 22 94 10/10/19 13:30 60 25 H 146/76 H 92 10/10/19 13:29 62 23 154/88 H 97 10/10/19 12:23 36.3 C L 75 18 145/91 H 98 Code Status & VTE Plan Code Status Not addressed on admission VTE Prophylaxis Plan VTE Prophylaxis will be ordered: Yes PG Care Time/CCT Total # of Minutes Spent Total Time Spent with Patient: Total time spent is greater than 50% in coordination of care (as documented) at patient's floor/unit and/or counseling patient: Coding Level of Care Code 44945 Initial Inpt Care Lvl 3 Diagnoses Chest pain, rule out acute myocardial infarction R07.9 Unstable angina I20.0 Coronary artery disease I25.110 Coronary Disease-Associated Artery/Lesion type: [place] artery [place] vs. transplanted heart: [place] heart Associated angina: with unstable angina Dyslipidemia E78.5 Elevated PSA R97.20 BPH (benign prostatic hyperplasia) N40.1; R35.0 Lower urinary tract symptom presence: symptoms present Lower urinary tract symptom detail: urinary frequency Suprapubic pain R10.2 Abdominal pain R10.84 Abdominal location: generalized Mesenteric panniculitis K65.4 GERD (gastroesophageal reflux disease) K21.9 Esophagitis presence: without esophagitis DVT prophylaxis Z29.9 Discharge planning issues Z02.9 (1) Coronary artery disease Coronary Disease-Associated Artery/Lesion type: [place] artery [place] vs. transplanted heart: [place] heart Associated angina: with unstable angina Qualified Code(s): I25.110 - Atherosclerotic heart disease of [place] coronary artery with unstable angina pectoris (2) BPH (benign prostatic hyperplasia) Lower urinary tract symptom presence: symptoms present Lower urinary tract symptom detail: urinary frequency Qualified Code(s): N40.1 - Benign prostatic hyperplasia with lower urinary tract symptoms; R35.0 - Frequency of micturition (3) Abdominal pain Abdominal location: generalized Qualified Code(s): R10.84 - Generalized abdominal pain (4) GERD (gastroesophageal reflux disease) Esophagitis presence: without esophagitis Qualified Code(s): K21.9 - Gastro-esophageal reflux disease without esophagitis
--- NOTE | 2019-10-10 19:27 | Emergency Department Note ---
Entered by Erin North acting as a scribe for Jose Yap MD History of Present Illness General Chief complaint: Referred by Doctor Stated complaint: REFERRED BY DR Time Seen by Provider: 10/10/19 12:34 Source: patient History of Present Illness Provider complaint: flank pain Location: back and right Radiation: abdomen Severity: similar to prior episodes Pain Consistency: + intermittent Maximum Pain Intensity: 7 Exacerbated By: + movement Associated symptoms: no nausea/vomiting The patient is a 78 year old male w/ PMHx HTN, CAD, AR who presents to the ED w/ CC of intermittent right sided flank pain beginning several weeks ago. The patient reports that his pain radiates to right side of his abdomen. He mentions that he has a history of prostate and kidney issues. He reports that t his feels similar. The patient mentions that he was not able to get an appointment with his urologist Dr. Johnson. He notes that he has had recent weight gain. He mentions that his last bowel movement was this morning and it was normal. He denies any issues urinating. He denies any nausea or vomiting. The patient reports that he has been taking Advil for his pain which has not been helping. Home Medications Home Medications Medication Instructions Recorded Confirmed Type aspirin 81 mg PO HS 11/24/18 10/10/19 History multivitamin 1 tab PO QAM 11/24/18 10/10/19 History nitroglycerin [Nitrostat] 0.4 mg SUBLINGUAL UD 11/24/18 10/10/19 History omega 8-kvf-jtj-fish oil [Fish Oil] 1 cap PO QDL 11/24/18 10/10/19 History red yeast rice 600 mg PO QAM 11/24/18 10/10/19 History terazosin 1 mg PO BID 11/24/18 10/10/19 History vitamin B complex 1 tab PO QAM 11/24/18 10/10/19 History ranitidine HCl [Zantac] 150 mg PO BID #30 tab 03/12/19 10/10/19 Rx meloxicam 15 mg tablet 15 mg PO daily PRN #30 tab 07/24/19 10/10/19 Rx clonazepam 0.5 mg tablet 0.5 mg PO BID PRN #14 tab 08/27/19 10/10/19 Rx lansoprazole 30 mg capsule,delayed 30 mg PO BID 12/23/19 02/05/20 History release silodosin 8 mg capsule 8 mg PO BID 08/27/19 10/10/19 History temazepam 15 mg capsule 15 mg PO HS PRN 08/27/19 10/10/19 History fluticasone propionate 50 2 sprays INTNAS DAILY #15.8 ml 09/13/19 10/10/19 Rx mcg/actuation nasal spray,suspension Allergies Allergy/AdvReac Type Severity Reaction Status Date / Time ezetimibe AdvReac Unknown MYOPATHY Verified 09/13/19 09:28 Eevcodb-Ylj-Thy Reductase AdvReac Unknown MYOPATHY Verified 09/13/19 09:28 Inhibitor Past Med/Surg History Medical History Acid reflux (Chronic) Anxiety (Chronic) Chronic back pain (Chronic) Coronary artery disease Dyslipidemia Elevated PSA Heart attack (Chronic) Heart disease (Chronic) Hypertension No pertinent family history (Chronic) Weakness (Chronic) Surgical History H/O cardiac catheterization (Chronic) H/O heart artery stent (Chronic) History of bronchoscopy History of colonoscopy History of knee surgery right History of tonsillectomy S/P cholecystectomy (Chronic) Family History Father Myocardial infarction Other ASCVD (arteriosclerotic cardiovascular disease) Social History Preferred Language: Palestinian Visual Impairment: No Limitations Hearing Ability: Use of Hearing Aid marital status: Current Living Situation: Alone and Other Current Living Situation Comment: lives with son current occupational status: retired Feels Safe at Home: Declines to Answer Smoking Status: Unknown if ever smoked Hx Alcohol Use: Yes Alcohol type: beer Alcohol Intake Frequency Comment: 2 beers a week Hx Substance Use: No Childhood Exposure to Second-Hand Smoke: Yes caffeine: Yes Dental Care, Regularly: No Physical Activity Frequency: 3-4 Times per Week Seatbelt Use: always Sunscreen Use: Yes Review of Systems See HPI for pertinent positives & negatives. and A total of 10 systems reviewed and were otherwise negative Physical Exam Vital Signs Vital Signs - 24 hr 10/10/19 12:23 10/10/19 13:29 10/10/19 13:30 Temperature 36.3 C L Temperature Source Oral Pulse Rate 75 62 60 Pulse Rate from SpO2 Sensor 61 60 Respiratory Rate 18 23 25 H Respiratory Effort / Characteristics Non-Labored Respiratory Depth Normal Respiratory Pattern Regular Blood Pressure 145/91 H 154/88 H 146/76 H Blood Pressure Mean 109 100 87 Blood Pressure Position Sitting Pulse Oximetry 98 97 92 Oxygen Delivery Method Room Air Sepsis Recent Fever Within 48 Hours No Sepsis New/Unexplained Change in Mental Status No Sepsis Action Taken by Nursing No Action Required 10/10/19 13:32 10/10/19 13:39 10/10/19 14:00 Temperature Temperature Source Pulse Rate 61 63 Pulse Rate from SpO2 Sensor 61 Respiratory Rate 22 17 Respiratory Effort / Characteristics Respiratory Depth Respiratory Pattern Blood Pressure 134/87 Blood Pressure Mean 94 Blood Pressure Position Pulse Oximetry 94 Oxygen Delivery Method Room Air Sepsis Recent Fever Within 48 Hours Sepsis New/Unexplained Change in Mental Status Sepsis Action Taken by Nursing 10/10/19 14:04 10/10/19 14:10 10/10/19 14:21 Temperature Temperature Source Pulse Rate 72 67 63 Pulse Rate from SpO2 Sensor 66 63 Respiratory Rate 22 24 18 Respiratory Effort / Characteristics Respiratory Depth Respiratory Pattern Blood Pressure Blood Pressure Mean Blood Pressure Position Pulse Oximetry 99 96 Oxygen Delivery Method Sepsis Recent Fever Within 48 Hours Sepsis New/Unexplained Change in Mental Status Sepsis Action Taken by Nursing 10/10/19 14:30 10/10/19 14:31 10/10/19 14:40 Temperature Temperature Source Pulse Rate 64 62 61 Pulse Rate from SpO2 Sensor 64 62 61 Respiratory Rate 20 22 14 Respiratory Effort / Characteristics Respiratory Depth Respiratory Pattern Blood Pressure 143/88 H Blood Pressure Mean 104 Blood Pressure Position Pulse Oximetry 94 94 97 Oxygen Delivery Method Sepsis Recent Fever Within 48 Hours Sepsis New/Unexplained Change in Mental Status Sepsis Action Taken by Nursing 10/10/19 14:55 10/10/19 15:00 10/10/19 15:10 Temperature Temperature Source Pulse Rate 61 61 59 L Pulse Rate from SpO2 Sensor 61 61 59 L Respiratory Rate 22 25 H 17 Respiratory Effort / Characteristics Respiratory Depth Respiratory Pattern Blood Pressure Blood Pressure Mean Blood Pressure Position Pulse Oximetry 99 95 96 Oxygen Delivery Method Sepsis Recent Fever Within 48 Hours Sepsis New/Unexplained Change in Mental Status Sepsis Action Taken by Nursing 10/10/19 15:21 10/10/19 15:30 10/10/19 15:31 Temperature Temperature Source Pulse Rate 61 61 61 Pulse Rate from SpO2 Sensor 62 61 61 Respiratory Rate 16 24 21 Respiratory Effort / Characteristics Respiratory Depth Respiratory Pattern Blood Pressure 146/91 H Blood Pressure Mean 107 Blood Pressure Position Pulse Oximetry 95 96 95 Oxygen Delivery Method Sepsis Recent Fever Within 48 Hours Sepsis New/Unexplained Change in Mental Status Sepsis Action Taken by Nursing 10/10/19 15:40 10/10/19 15:50 10/10/19 16:03 Temperature Temperature Source Pulse Rate 63 68 Pulse Rate from SpO2 Sensor 63 69 58 L Respiratory Rate 23 20 Respiratory Effort / Characteristics Respiratory Depth Respiratory Pattern Blood Pressure Blood Pressure Mean Blood Pressure Position Pulse Oximetry 95 98 99 Oxygen Delivery Method Sepsis Recent Fever Within 48 Hours Sepsis New/Unexplained Change in Mental Status Sepsis Action Taken by Nursing 10/10/19 16:10 10/10/19 16:20 10/10/19 16:31 Temperature Temperature Source Pulse Rate Pulse Rate from SpO2 Sensor 61 63 64 Respiratory Rate Respiratory Effort / Characteristics Respiratory Depth Respiratory Pattern Blood Pressure Blood Pressure Mean Blood Pressure Position Pulse Oximetry 97 98 97 Oxygen Delivery Method Sepsis Recent Fever Within 48 Hours Sepsis New/Unexplained Change in Mental Status Sepsis Action Taken by Nursing 10/10/19 16:40 10/10/19 18:02 10/10/19 18:03 Temperature Temperature Source Pulse Rate 59 L 60 Pulse Rate from SpO2 Sensor 61 59 L 60 Respiratory Rate 24 21 Respiratory Effort / Characteristics Respiratory Depth Respiratory Pattern Blood Pressure 151/93 H Blood Pressure Mean 121 Blood Pressure Position Pulse Oximetry 98 97 95 Oxygen Delivery Method Sepsis Recent Fever Within 48 Hours Sepsis New/Unexplained Change in Mental Status Sepsis Action Taken by Nursing 10/10/19 18:11 10/10/19 18:20 10/10/19 18:30 Temperature Temperature Source Pulse Rate 60 58 L 56 L Pulse Rate from SpO2 Sensor 60 59 L 57 L Respiratory Rate 20 22 24 Respiratory Effort / Characteristics Respiratory Depth Respiratory Pattern Blood Pressure 122/84 Blood Pressure Mean 92 Blood Pressure Position Pulse Oximetry 97 94 95 Oxygen Delivery Method Sepsis Recent Fever Within 48 Hours Sepsis New/Unexplained Change in Mental Status Sepsis Action Taken by Nursing 10/10/19 18:31 10/10/19 18:41 10/10/19 18:50 Temperature Temperature Source Pulse Rate 59 L 57 L 59 L Pulse Rate from SpO2 Sensor 59 L 58 L Respiratory Rate 21 18 25 H Respiratory Effort / Characteristics Respiratory Depth Respiratory Pattern Blood Pressure Blood Pressure Mean Blood Pressure Position Pulse Oximetry 96 98 Oxygen Delivery Method Sepsis Recent Fever Within 48 Hours Sepsis New/Unexplained Change in Mental Status Sepsis Action Taken by Nursing 10/10/19 19:00 Temperature Temperature Source Pulse Rate 57 L Pulse Rate from SpO2 Sensor Respiratory Rate Respiratory Effort / Characteristics Respiratory Depth Respiratory Pattern Blood Pressure 132/80 Blood Pressure Mean 104 Blood Pressure Position Pulse Oximetry Oxygen Delivery Method Sepsis Recent Fever Within 48 Hours Sepsis New/Unexplained Change in Mental Status Sepsis Action Taken by Nursing GENERAL: Well appearing, well nourished, NAD, non-toxic. EYE EXAM: Normal conjunctiva. PERRL, no anisocoria and EOM's grossly intact w/o pain. OROPHARYNX: Moist mucous membranes. Grossly normal dentition. NECK: Supple, no nuchal rigidity, no adenopathy, non-tender. No signs of meningismus. LUNGS: Clear to auscultation. Normal chest wall mechanics. HEART: NSR, no MRG. ABDOMEN: Periumbilical and right sided abdominal pain, no right lower quadrant pain, soft, normo-active bowel sounds, no masses, no rebound or guarding. BACK: No CVA TTP. No overlying skin changes. SKIN: No rashes and no bruising. UPPER EXTREMITIES: Upper extremities are grossly normal. LOWER EXTREMITIES: No pitting edema. No calf pain. NEURO EXAM: A&O x3, cranial nerves II-XII grossly intact, normal speech, moves all 4 extremities on command w/o issue. Course Course 1246: The patient was evaluated in room C12B, and a complete history and physical examination were performed. 1553: I reevaluated the patient and updated him on his results. The patient mentions that he has had two stents placed two years ago. He reports that he has occasional chest pressure. 1656: I reviewed the patient's case with Dr. Jacob- [facility] Hospitalist. He will evaluate the patient for further management. Administered Medications Ioversol (Optiray 320 100ml) 94 ml IV ONCE PRN PRN Reason: Interaction Checking Stop: 10/14/19 14:46 Last Admin: 10/10/19 14:48 Dose: 94 ml Documented by: [id number] Discontinued Medications Aspirin (Aspirin) 324 mg PO NOW STA Stop: 10/10/19 15:29 Last Admin: 10/10/19 15:41 Dose: 324 mg Documented by: [id number] Aspirin (Aspirin) Confirm Administered Dose 324 mg .ROUTE .STAngella Joy-MED ONE Stop: 10/10/19 15:41 Last Admin: 10/10/19 15:47 Dose: 324 mg Documented by: [id number] Medical Decision Making Medical Records Attestation: I reviewed the patient's medical records. Home Medications Current Medication List: was personally reviewed by me Laboratory Data Attestation: I reviewed the patient's lab results. Result diagrams: 10/10/19 13:30 10/10/19 13:30 Lab Results 10/10/19 10/10/19 Range/Units 13:30 13:30 WBC 8.40 (4.8-10.8) K/uL RBC 4.80 (4.7-6.1) M/uL Hgb 14.0 (14.0-18.0) g/dL Hct 41.0 L (42-52) % MCV 85.4 (80-100) fL MCH 29.2 (25-34) pg MCHC 34.1 (32-36) g/dL RDW Std Deviation 40.6 (36.4-46.3) fL RDW Coeff of Josefina 13.0 (11.5-14.5) % Plt Count 290 (130-400) K/uL MPV 9.6 (7.4-10.4) fL Immature Gran % (Auto) 0.1 % Neut % (Auto) 69.8 % Lymph % (Auto) 21.3 % Power % (Auto) 7.0 % Eos % (Auto) 1.3 % Baso % (Auto) 0.5 % Immature Gran # (Auto) 0.01 (0.00-0.02) K/uL Neut # (Auto) 5.86 (1.4-6.5) K/uL Lymph # (Auto) 1.79 (1.2-3.4) K/uL Power # (Auto) 0.59 (0.11-0.59) K/uL Eos # (Auto) 0.11 (0-0.5) K/uL Baso # (Auto) 0.04 (0-0.2) K/uL Sodium 138 (136-145) mmol/L Potassium 4.2 (3.5-5.1) mmol/L Chloride 108 H (98-107) mmol/L Carbon Dioxide 26 (21-32) mmol/L Anion Gap 4.0 (3-11) BUN 9 (7-18) mg/dl Creatinine 1.07 (0.6-1.4) mg/dl Est Cr Clr Drug Dosing 56.0 ml/min Est GFR ( Amer) 76.1 Est GFR (Non-Af Amer) 65.7 BUN/Creatinine Ratio 8.6 L (10-20) Glucose 90 (70-99) mg/dl Calcium 9.4 (8.5-10.1) mg/dl Total Bilirubin 0.7 (0.2-1) mg/dl AST 17 (15-37) U/L ALT 32 (12-78) U/L Alkaline Phosphatase 100 (45-117) U/L Troponin I 0.083 H* (0-0.045) ng/ml Total Protein 7.3 (6.4-8.2) gm/dl Albumin 3.8 (3.4-5.0) gm/dl Globulin 3.5 (2.5-4.0) gm/dl Albumin/Globulin Ratio 1.1 (0.9-2) Lipase 151 (73-393) U/L Imaging Data Radiologist's Impression: Radiology results as stated below per my review and the radiologist's interpretation: CT abd pelvis IV con only CLINICAL HISTORY: 78 years-old Male presenting with flank pain. TECHNIQUE: Multidetector CT of the abdomen and pelvis was performed after the a dministration of intravenous contrast. IV contrast: 94 mL of Optiray 320. One or more dose lowering techniques were used consistent with the principles of ALARA (as low as reasonably achievable), including automatic exposure control, mA or kV adjustment to individual patient size, and/or use of iterative reconstruction. COMPARISON: 03/05/2016. CT DOSE (mGy.cm): The estimated cumulative dose is 395.07 mGy.cm. FINDINGS: Inventory Control Specialist topogram: Cholecystectomy clips. Lung bases: Normal heart size. Coronary artery calcification. No pericardial or pleural effusion. Minimal dependent changes likely atelectasis. Liver: Normal morphology. No liver lesion. Patent hepatic vasculature. Biliary: No intrahepatic or extrahepatic biliary ductal dilatation. Gallbladder surgically absent. Pancreas: Mild parenchymal atrophy. Spleen: Normal. Adrenal glands: Normal. Kidneys and ureters: Normal. No hydronephrosis. Bladder: Mild circumferential bladder wall thickening. Pelvic organs: Prostate enlargement likely secondary to benign prostatic hyperplasia. Bowel: Mild diverticulosis of the proximal sigmoid and distal descending colon without wall thickening or pericolonic inflammatory change. The appendix is normal. No bowel obstruction. Duodenal diverticulum noted at the level of the horizontal portion. Several loops of small bowel containing feces. Peritoneal cavity: No free fluid or intraperitoneal gas. 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 Lymph nodes: No enlarged lymph nodes in the abdomen or pelvis. Vasculature: Atherosclerosis of the normal caliber abdominal aorta. IVC patent. Abdominal wall: Normal. Musculoskeletal: Degenerative changes of the spine and sacroiliac joints. IMPRESSION: 1. No acute intra-abdominal pathology. 2. Feces in several loops of small bowel may indicate delayed transit or bacterial overgrowth. No bowel obstruction. 3. Mild diverticulosis coli. No diverticulitis. 4. Prostatomegaly with mild chronic bladder outlet obstruction. ACT 112: Negative or not required by law. Electronically signed by: Saurav Brennan M.D. 10/10/2019 3:17 PM ECG Data Attestation: I personally reviewed and interpreted this ECG as follows: Indication: + abdominal pain Rate (beats per minute): 63 Rhythm: + sinus rhythm ECG Intervals/blocks: + First degree AV block and + Prolonged QT ECG [place]: + Left axis deviation ECG ST segments: + T-wave inversions (avl ) Comparison ECG Date: from (05/13/19) Change: the following changes noted (TWI in avl is new) Blood Pressure Blood Pressure Findings: Elevated blood pressure Blood Pressure Disposition: did not require urgent referral MDM Narrative Differential diagnosis: Etiologies such as appendicitis, diverticulitis, PUD, biliary pathology, UTI, pancreatitis, obstruction, mesenteric ischemia, aortic pathology, infections, inflammatory bowel disease, renal colic, as well as others were entertained. The patient is a 78 year old male w/ PMHx HTN, CAD, AR who presents to the ED w/ CC of intermittent right sided flank pain beginning several weeks ago. Patient was seen and evaluated the bedside. The patient was referred from [place] [facility] due to concern for persistent flank and abdominal pain. The patient states he does have prior history of kidney and prostate issues for which she has seen Dr. Johnson in the past. Patient does have follow-up in 2 to 3 months. Patient is well-appearing and denies fevers or chills. The patient states he has not taken any at home [id number]-[id number] medications in some time. Patient did a bladder complete along with CT the abdomen pelvis and a urine sample was obtained. The patient's CT does show potentially delayed fecal transit. The patient does have diverticulosis but no diverticulitis. The patient does have prostatomegaly. Otherwise no acute intra-abdominal pathology. Patient's blood counts show normal white count and hemoglobin. The patient's kidney function is unremarkable. The patient's troponin is positive. Given that it is elevated with a prior history of not having elevated troponins and the patient did later admit that he does have occasional chest pressure. The patient does have prior history of CAD status post stents. Patient was given a full dose aspirin. I did speak the on-call hospitalist who agreed to further evaluate treat the patient. Patient did not have any active chest pain at the time of admission and EKG shows only a change in aVL compared to May. No ST segment changes at this time. Do not believe the patient requires heparin at this time. Impression & Plan Atypical chest pain, History of coronary artery disease, Elevated troponin Discharge Plan Visit Data Chief Complaint: Referred by Doctor Stated Complaint: REFERRED BY ED Provider: Jose Yap Discharge Problem: Atypical chest pain, History of coronary artery disease, Elevated troponin Patient Disposition: Being Evaluated by Hospitalist Discharge Instructions Interventions: ED Discharge Assessment Last Done: 10/10/19 19:08 Forms Stand Alone Forms: My [facility] [place] Prescriptions Prescriptions: No Action fluticasone propionate [Flonase Allergy Relief] 50 mcg/actuation spray,suspension 2 sprays INTNAS DAILY Qty: 15.8 RF: 2 meloxicam 15 mg tablet 15 mg PO daily PRN (Reason: pain) Qty: 30 RF: 2 clonazepam 0.5 mg tablet 0.5 mg PO BID PRN (Reason: anxiety) Qty: 14 RF: 0 ranitidine HCl [Zantac] 150 mg tablet 150 mg PO BID Qty: 30 RF: 0 multivitamin Tablet 1 tab PO QAM RF: 0 terazosin 1 mg capsule 1 mg PO BID RF: 0 aspirin 81 mg Tablet,Delayed Release (Dr/Ec) 81 mg PO HS RF: 0 nitroglycerin [Nitrostat] 0.4 mg Tablet, Sublingual 0.4 mg sublingual UD RF: 0 vitamin B complex Tablet 1 tab PO QAM RF: 0 omega 8-okr-hvx-fish oil [Fish Oil] 1,000 mg (120 mg-180 mg) Capsule 1 cap PO QDL RF: 0 red yeast rice 600 mg Tablet 600 mg PO QAM RF: 0 temazepam 15 mg capsule 15 mg PO HS PRN (Reason: Insomnia) RF: 0 lansoprazole 30 mg capsule,delayed release(DR/EC) 30 mg PO BID RF: 0 silodosin 8 mg capsule 8 mg PO BID RF: 0 Referrals Referrals: Saurav Lucero MD [Primary Care Provider] - The scribe's documentation has been prepared under my direction and personally reviewed by me in its entirety. I confirm that the note above accurately re flects all work, treatment, procedures, and medical decision making performed by me.
[2019-10-10 19:39] LABS: Appearance Urine Clear (Clear); Bilirubin Urine Negative (Negative); Blood Urine Negative (Negative); Color Urine Yellow; Glucose Urine UA Negative (Negative); Ketones Urine Negative (Negative); Leukocyte Esterase Urine Negative (Negative); Nitrite Urine Negative (Negative); Protein Urine Negative (Negative); Specific Gravity Urine 1.008 (1.000-1.030); Urobilinogen Urine Negative (Negative); pH Urine 5.5 (4.5-7.5)
[2019-10-10] MEDS ORDERED: MELOXICAM 7.5 MG TAB PO PRN (20:43)
[2019-10-10] MEDS ORDERED: clonazePAM 0.5 MG TAB PO PRN (20:43)
[2019-10-10] MEDS ORDERED: TEMAZEPAM 15 MG CAPSULE PO PRN (20:43)
[2019-10-10] MEDS ORDERED: NITROGLYCERIN SL 0.4 MG/TAB TAB SL PRN (20:43)
[2019-10-10] MEDS ORDERED: ACETAMINOPHEN 325 MG TAB PO PRN (20:43)
[2019-10-10] MEDS ORDERED: ONDANSETRON INJ 2 MG/ML 2 ML VIAL IV PRN (20:43)
[2019-10-10] MEDS: TERAZOSIN HCL 1 MG CAP PO SCH (22:33)
[2019-10-10] MEDS: PANTOprazole 40 MG TAB PO SCH (22:33)
[2019-10-10] MEDS: FAMOTIDINE 20 MG TAB PO SCH (22:33)
[2019-10-10] MEDS: ASPIRIN 81 MG ECTAB PO SCH (22:41)
[2019-10-10 22:48] LABS: Appearance Urine Clear (Clear); Bilirubin Urine Negative (Negative); Blood Urine Negative (Negative); Color Urine Yellow; Glucose Urine UA Negative (Negative); Ketones Urine Negative (Negative); Leukocyte Esterase Urine Negative (Negative); Nitrite Urine Negative (Negative); Protein Urine Negative (Negative); Specific Gravity Urine 1.044 (1.000-1.030); Urobilinogen Urine Negative (Negative)
[2019-10-11] MEDS ORDERED: LACTATED RINGER'S 1,000 ML IV SCH (01:15)
[2019-10-11 07:02] LABS: Basophils # (auto) 0.02 K/uL (0-0.2); Basophils % (auto) 0.2 %; Eosinophils # (auto) 0.19 K/uL (0-0.5); Hematocrit (blood only) 41.3 % (42-52); Hemoglobin 13.9 g/dL (14.0-18.0); Immature Granulocytes # (auto) 0.01 K/uL (0.00-0.02); Immature Granulocytes % (auto) 0.1 %; Lymphocytes # (auto) 1.71 K/uL (1.2-3.4); Lymphocytes % (auto) 17.8 %; Mean Corpuscular Hemoglobin 28.9 pg (25-34); Mean Corpuscular Hgb Conc 33.7 g/dL (32-36); Mean Corpuscular Volume 85.9 fL (80-100); Mean Platelet Volume 9.5 fL (7.4-10.4); Monocytes # (auto) 0.72 K/uL (0.11-0.59); Monocytes % (auto) 7.5 %; Neutrophils # (auto) 6.95 K/uL (1.4-6.5); Neutrophils % (auto) 72.4 %; Platelet Count 269 K/uL (130-400); RDW Coefficient of Variation 13.2 % (11.5-14.5); RDW Standard Deviation 41.4 fL (36.4-46.3); Red Blood Count 4.81 M/uL (4.7-6.1)
[2019-10-11 07:15] LABS: Estimated Average Glucose 120 mg/dl; Hemoglobin A1C 5.8 % (4.5-5.6)
[2019-10-11 07:36] LABS: BUN Creatinine Ratio 9.5 (10-20); C Reactive Protein 0.7 mg/dl (0-0.29); Calcium 9.7 mg/dl (8.5-10.1); Creatinine Clr Calc Pharmacy 57.6 ml/min; Est GFR (African American) 78.8; Potassium 4.3 mmol/L (3.5-5.1)
[2019-10-11 07:44] LABS: Troponin I 0.083 ng/ml (0-0.045)
[2019-10-11] MEDS: PANTOprazole 40 MG TAB PO SCH (07:53)
[2019-10-11] MEDS: FAMOTIDINE 20 MG TAB PO SCH (07:54)
[2019-10-11] MEDS: TERAZOSIN HCL 1 MG CAP PO SCH (07:55)
[2019-10-11] MEDS: ASPIRIN 81 MG ECTAB PO SCH (07:55)
--- NOTE | 2019-10-11 08:49 | Gastrointestinal Consultation ---
Date of Consultation October 11, 2019 Assessment & Plan (1) Mesenteric panniculitis: mild, nonspecific finding. I do not suspect this is contributing to his pains at this time. (2) GERD (gastroesophageal reflux disease): appears to be controlled. (3) Suprapubic pain: (4) Abnormal CT of the abdomen: (5) Constipation: significant stool build up in small intestine, certainly could be the etiology of his abdominal and flank pains. Recs: 1. start aggressive bowel regimen, senna qhs and colace BID, add miralax daily prn as well 2. H2 albert for GERD Thank you for allowing me to participate in the care of this patient. History of Present Illness Attending Physician: Lenny Hodges, DO 78 yo male here for flank pain and suprapubic pains, GI consulted for this. He has been having these symptoms, described as a dull ache for several weeks he says. No n/v, hematochezia, diarrhea. He has been having chest pains intermitte ntly for which he is being worked up by the primary team. CT A/P showed mild mesenteric panniculitis and large collection of stool in the small intestine. Denies any increased urinary symptoms lately, but at baseline does have frequency. Labs reviewed, mild anemia noted. Cr wnl. ESR and CRP with mild elevations. Allergies Allergy/AdvReac Type Severity Reaction Status Date / Time ezetimibe AdvReac Unknown MYOPATHY Verified 09/13/19 09:28 Yztjizd-Zkp-Kxo Reductase AdvReac Unknown MYOPATHY Verified 09/13/19 09:28 Inhibitor Home Medications Home Medications Medication Instructions Recorded Confirmed Type aspirin 81 mg PO HS 11/24/18 10/10/19 History multivitamin 1 tab PO QAM 11/24/18 10/10/19 History nitroglycerin [Nitrostat] 0.4 mg SUBLINGUAL UD 11/24/18 10/10/19 History omega 1-ima-rrg-fish oil [Fish Oil] 1 cap PO QDL 11/24/18 10/10/19 History red yeast rice 600 mg PO QAM 11/24/18 10/10/19 History terazosin 1 mg PO BID 11/24/18 10/10/19 History vitamin B complex 1 tab PO QAM 11/24/18 10/10/19 History ranitidine HCl [Zantac] 150 mg PO BID #30 tab 03/12/19 10/10/19 Rx meloxicam 15 mg tablet 15 mg PO daily PRN #30 tab 07/24/19 10/10/19 Rx clonazepam 0.5 mg tablet 0.5 mg PO BID PRN #14 tab 08/27/19 10/10/19 Rx lansoprazole 30 mg capsule,delayed 30 mg PO BID 08/27/19 10/10/19 History release temazepam 15 mg capsule 15 mg PO HS PRN 08/27/19 10/10/19 History fluticasone propionate 50 2 sprays INTNAS DAILY #15.8 ml 09/13/19 10/10/19 Rx mcg/actuation nasal spray,suspension Patient History Medical History Acid reflux (Chronic) Anxiety (Chronic) Chronic back pain (Chronic) Coronary artery disease Dyslipidemia Elevated PSA Heart attack (Chronic) Heart disease (Chronic) Hypertension No pertinent family history (Chronic) Weakness (Chronic) Surgical History H/O cardiac catheterization (Chronic) H/O heart artery stent (Chronic) History of bronchoscopy History of colonoscopy History of knee surgery right History of tonsillectomy S/P cholecystectomy (Chronic) Family History Father Myocardial infarction Other ASCVD (arteriosclerotic cardiovascular disease) Social History Preferred Language: Swiss Communication Ability: Effective Visual Impairment: No Limitations Hearing Ability: Use of Hearing Aid Stone Derrickman And Rigger Required: No Beliefs That Will Affect Care: None marital status: Current Living Situation: Family Current Living Situation Comment: Lives with son in 1 story house- 2 steps to enter the house current occupational status: retired Other Information That Helps Us Care for You: No Feels Safe at Home: Yes Safety Concerns: Feels Safe At This Time Smoking Status: Former smoker Tobacco Type: cigarettes and smokeless tobacco ; Do You Dip or Chew Tobacco: No ; Tobacco Cessation Education Requested by Patient: No Hx Alcohol Use: Yes Alcohol type: beer Alcohol Intake Frequency Comment: 2 beers a week Hx Substance Use: No Childhood Exposure to Second-Hand Smoke: Yes caffeine: Yes Dental Care, Regularly: No Physical Activity Frequency: 3-4 Times per Week Seatbelt Use: always Sunscreen Use: Yes Review of Systems Constitutional: no fever, no chills and no weight loss Eyes: as per Subjective / HPI Ear, Nose, Mouth, Throat: as per Subjective / HPI Respiratory: no dyspnea and no dyspnea on exertion Cardiovascular: no chest pain and no palpitations Gastrointestinal: as per Subjective / HPI Musculoskeletal: no joint pain and no swelling Integumentary: no rash and no lesions Neurologic: no numbness and no paresthesia Psychiatric: no depression and no anxiety Endocrine: no fatigue Hematologic / Lymphatic: no easy bleeding and no easy bruising Physical Exam Constitutional: WD/WN, vitals as above Eyes: EOM intact bilaterally Neck: normal visual inspection Respiratory: normal respiratory effort, lungs clear to auscultation Cardiovascular: RRR, no murmur, no edema Gastrointestinal (Abdomen): Inspection/Auscultation: abdomen normal to inspection; abdomen not distended Percussion/Palpation: abdomen soft; abdomen nontender and no hepatosplenomegaly Musculoskeletal: Extremities: no cyanosis Gait: normal gait Skin: no rashes, warm and dry Neurologic: moves all extremities Psychiatric: A+Ox3, euthymic affect Results & Data Vital Signs (Past 12 Hours) Vital Signs Temp Pulse Pulse Resp BP Pulse Ox Pulse Ox 10/11/19 08:04 36.4 C L 60 18 152/83 H 96 10/11/19 03:50 36.8 C 75 19 137/71 96 10/11/19 00:30 61 10/11/19 00:22 36.8 C 72 17 131/73 92 10/10/19 22:23 36.9 C 57 L 20 155/88 H 96 96 10/10/19 20:52 36.9 C 57 L 20 155/88 H 96 PG Care Time/CCT Total # of Minutes Spent Total Time Spent with Patient: Total time spent is greater than 50% in coordination of care (as documented) at patient's floor/unit and/or counseling patient: Coding Level of Care Code 85998 Initial Inpt Care Lvl 3 Diagnoses Mesenteric panniculitis K65.4 GERD (gastroesophageal reflux disease) K21.9 Esophagitis presence: without esophagitis Suprapubic pain R10.[address] of the abdomen R93.5 Constipation K59.00 (1) GERD (gastroesophageal reflux disease) Esophagitis presence: without esophagitis Qualified Code(s): K21.9 - Gastro- esophageal reflux disease without esophagitis
--- NOTE | 2019-10-11 08:53 | Cardiology Consultation ---
Date of Consultation October 11, 2019 Assessment & Plan (1) History of coronary artery disease: Patient does have a history of coronary disease having previously undergone percutaneous intervention on 2 occasions. This included percutaneous intervention to the OM 1 and 1st diagonal. He has been evaluated on multiple occasions over the past few years for symptoms of atypical chest pain. He did undergo dobutamine echocardiography and November of 2018. There is no evidence of ischemia or reduced LV function at that time. It is unclear why the patient had cardiac biomarkers checked at the time of his presentation last night, but the overall elevation and flat Tradjenta Re of his biomarkers suggests that there has not been any recent acute coronary syndrome. He did report 1 episode of chest pressure associated with watching a wrestling match recently. There is the very small possibility that the elevated biomarkers we are seeing today represent a remote event. However, the patient could not tell me the time frame in which she had the symptoms. Curiously, he has described the same exact scenario previously and has had evaluations for these symptoms since that time without evidence of ischemia. He does have other atypical chest pains which are clearly noncardiac. Today we will perform perfusion imaging. I think his perfusion imaging is low risk or does not demonstrate any evidence of ischemia he can certainly be discharged. Ideally he would be on a more intensive medical regimen for his coronary disease to include high-dose atorvastatin. However, he has had intolerance to statin therapy in the past. He has also been on beta-blockade previously but has not tolerated beta blockade. He is not known to have reduced LV systolic function is not appear to be any cardiac indication for lisinopril. His blood pressure seemed to be mildly elevated during his admission and this can be followed over time. He should be continued on his daily aspirin. I would like to see him in follow-up subsequent to discharge. This could be arranged on a routine basis provided his perfusion study is normal. (2) Right bundle branch block: Does have an element of conduction disease which appears stable based on prior EKGs. No symptoms of conduction disease such as significant dizziness or syncope. No sense of palpitation. No significant arrhythmias on his telemetry. He likely does benefit from avoiding beta-blockers in this situation. 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 It is easy yesterday the patient had routine evaluation at the [facility] and mentioned some significant flank and suprapubic pain. Patient had some concerns about prostate cancer and prostate trouble. Due to the nature of the symptoms he was sent for evaluation at our emergency room and in the process of his workup he was noted to have elevated cardiac biomarkers. Patient did not present for symptoms of chest discomfort. Upon further questioning the patient did report occasional episodes of a pinching or sharp pain which is fleeting in nature in the precordium. This is fairly random, infrequent and not exertional. The patient does report other symptoms of chest pressure which are more characteristic of cardiac ischemia. These tend to occur exclusively when he watches tell of [place] [employer] wrestling events. Patient has a long history of similar symptoms under similar circumstances. The exact scenario was documented in his medical record previously. He states that during the to last tell of eyes wrestling matches he experienced the symptoms. They can be extended in nature but eventually resolved without any specific intervention. He has limited his activity in the recent past due to symptoms of left hip pain and fatigue. He states that his left hip is xfae-hx-cyyk and this limits his walking. Previously he was able to walk at a fast pace for exercise. Now he swims 2-3 times per week for approximately 1/2 of an hour for exercise. He does not report symptoms of chest discomfort without activity. He denies orthopnea or paroxysmal nocturnal dyspnea. He does arise several times at nighttime to urinate. He has not report significant dizziness, lightheadedness or syncope. No sense of palpitation. Allergies Allergy/AdvReac Type Severity Reaction Status Date / Time ezetimibe AdvReac Unknown MYOPATHY Verified 09/13/19 09:28 Mqxrefv-Viz-Eis Reductase AdvReac Unknown MYOPATHY Verified 09/13/19 09:28 Inhibitor Home Medications Home Medications Medication Instructions Recorded Confirmed Type aspirin 81 mg PO HS 11/24/18 10/10/19 History multivitamin 1 tab PO QAM 11/24/18 10/10/19 History nitroglycerin [Nitrostat] 0.4 mg SUBLINGUAL UD 11/24/18 10/10/19 History omega 3-qfv-med-fish oil [Fish Oil] 1 cap PO QDL 11/24/18 10/10/19 History red yeast rice 600 mg PO QAM 11/24/18 10/10/19 History terazosin 1 mg PO BID 11/24/18 10/10/19 History vitamin B complex 1 tab PO QAM 11/24/18 10/10/19 History ranitidine HCl [Zantac] 150 mg PO BID #30 tab 03/12/19 10/10/19 Rx meloxicam 15 mg tablet 15 mg PO daily PRN #30 tab 07/24/19 10/10/19 Rx clonazepam 0.5 mg tablet 0.5 mg PO BID PRN #14 tab 08/27/19 10/10/19 Rx lansoprazole 30 mg capsule,delayed 30 mg PO BID 08/27/19 10/10/19 History release temazepam 15 mg capsule 15 mg PO HS PRN 08/27/19 10/10/19 History fluticasone propionate 50 2 sprays INTNAS DAILY #15.8 ml 09/13/19 10/10/19 Rx mcg/actuation nasal spray,suspension Patient History Medical History Acid reflux (Chronic) Anxiety (Chronic) Chronic back pain (Chronic) Coronary artery disease Dyslipidemia Elevated PSA Heart attack (Chronic) Heart disease (Chronic) Hypertension No pertinent family history (Chronic) Weakness (Chronic) Surgical History H/O cardiac catheterization (Chronic) H/O heart artery stent (Chronic) History of bronchoscopy History of colonoscopy History of knee surgery right History of tonsillectomy S/P cholecystectomy (Chronic) Family History Father Myocardial infarction Other ASCVD (arteriosclerotic cardiovascular disease) Social History Preferred Language: Cypriot Communication Ability: Effective Visual Impairment: No Limitations Hearing Ability: Use of Hearing Aid Scrap Hoist Operator Required: No Beliefs That Will Affect Care: None marital status: Current Living Situation: Family Current Living Situation Comment: Lives with son in 1 story house- 2 steps to enter the house current occupational status: retired Other Information That Helps Us Care for You: No Feels Safe at Home: Yes Safety Concerns: Feels Safe At This Time Smoking Status: Former smoker Tobacco Type: cigarettes and smokeless tobacco ; Do You Dip or Chew Tobacco: No ; Tobacco Cessation Education Requested by Patient: No Hx Alcohol Use: Yes Alcohol type: beer Alcohol Intake Frequency Comment: 2 beers a week Hx Substance Use: No Childhood Exposure to Second-Hand Smoke: Yes caffeine: Yes Dental Care, Regularly: No Physical Activity Frequency: 3-4 Times per Week Seatbelt Use: always Sunscreen Use: Yes Review of Systems Review of Systems: All systems reviewed & are unremarkable except as noted in HPI & below No recent fevers or chills. No hematuria. His lower back, flank and suprapubic pain are improved. The symptoms are less noticeable when he is still and more noticeable when he sits up or moves. His main concern is that he is worn out. I take this to mean that he is fatigued quite often and has less energy than he has previously. Physical Exam Physical Exam: The patient is alert and oriented. Mood and affect appeared normal. He answered all questions appropriately. HEENT: Pupils are equal and reactive to light and accommodation. Extraocular movements are intact. The sclerae are anicteric. Neuro: Cranial nerves intact Neck: Patient's neck is supple. He has palpable carotid pulses bilaterally without bruits on auscultation. There is no evidence of jugular venous distention. The thyroid is not enlarged. Lungs: Clear to auscultation bilaterally. He has good air movement without use of accessory muscles. No rales wheezes or rhonchi. Cardiac: Heart demonstrates a regular rate and rhythm. Normal S1 and S2. No murmurs on examination. Pulses: The patient has palpable radial pulses bilaterally that are equal in intensity Extremities: There was no evidence of hypoperfusion. There is no cyanosis or clubbing. There is no edema. Skin: I did not appreciate any rashes on examination today. Results & Data Vital Signs (Past 12 Hours) Vital Signs Temp Pulse Pulse Resp BP Pulse Ox Pulse Ox 10/11/19 08:04 36.4 C L 60 18 152/83 H 96 10/11/19 03:50 36.8 C 75 19 137/71 96 10/11/19 00:30 61 10/11/19 00:22 36.8 C 72 17 131/73 92 10/10/19 22:23 36.9 C 57 L 20 155/88 H 96 96 10/10/19 20:52 36.9 C 57 L 20 155/88 H 96 Laboratory Results Abnormal Lab Results 10/10/19 10/10/19 10/10/19 13:30 13:30 13:30 WBC 8.40 RBC 4.80 Hgb 14.0 Hct 41.0 L MCV 85.4 MCH 29.2 MCHC 34.1 RDW Std Deviation 40.6 RDW Coeff of Josefina 13.0 Plt Count 290 MPV 9.6 Immature Gran % (Auto) 0.1 Neut % (Auto) 69.8 Lymph % (Auto) 21.3 Churchill % (Auto) 7.0 Eos % (Auto) 1.3 Baso % (Auto) 0.5 Immature Gran # (Auto) 0.01 Neut # (Auto) 5.86 Lymph # (Auto) 1.79 Churchill # (Auto) 0.59 Eos # (Auto) 0.11 Baso # (Auto) 0.04 ESR Sodium 138 Potassium 4.2 Chloride 108 H Carbon Dioxide 26 Anion Gap 4.0 BUN 9 Creatinine 1.07 Est Cr Clr Drug Dosing 56.0 Est GFR ( Amer) 76.1 Est GFR (Non-Af Amer) 65.7 BUN/Creatinine Ratio 8.6 L Glucose 90 Estimat Average Glucose Hemoglobin A1c Calcium 9.4 Total Bilirubin 0.7 AST 17 ALT 32 Alkaline Phosphatase 100 Troponin I 0.083 H* C-Reactive Protein Total Protein 7.3 Albumin 3.8 Globulin 3.5 Albumin/Globulin Ratio 1.1 Triglycerides Cholesterol LDL Cholesterol, Calc VLDL Cholesterol, Calc HDL Cholesterol Cholesterol/HDL Ratio Lipase 151 Prostate Specific Ag Urine Color Yellow Urine Appearance Clear Urine pH 5.5 Ur Specific [place] 1.008 Urine Protein Negative Urine Glucose (UA) Negative Urine Ketones Negative Urine Blood Negative Urine Nitrite Negative Urine Bilirubin Negative Urine Urobilinogen Negative Ur Leukocyte Esterase Negative 10/10/19 10/10/19 10/10/19 13:30 21:18 22:35 WBC RBC Hgb Hct MCV MCH MCHC RDW Std Deviation RDW Coeff of Josefina Plt Count MPV Immature Gran % (Auto) Neut % (Auto) Lymph % (Auto) Churchill % (Auto) Eos % (Auto) Baso % (Auto) Immature Gran # (Auto) Neut # (Auto) Lymph # (Auto) Churchill # (Auto) Eos # (Auto) Baso # (Auto) ESR Sodium Potassium Chloride Carbon Dioxide Anion Gap BUN Creatinine Est Cr Clr Drug Dosing Est GFR ( Amer) Est GFR (Non-Af Amer) BUN/Creatinine Ratio Glucose Estimat Average Glucose Hemoglobin A1c Calcium Total Bilirubin AST ALT Alkaline Phosphatase Troponin I 0.099 H* C-Reactive Protein Total Protein Albumin Globulin Albumin/Globulin Ratio Triglycerides Cholesterol LDL Cholesterol, Calc VLDL Cholesterol, Calc HDL Cholesterol Cholesterol/HDL Ratio Lipase Prostate Specific Ag 12.600 H Urine Color Yellow Urine Appearance Clear Urine pH 8.0 H Ur Specific [place] 1.044 H Urine Protein Negative Urine Glucose (UA) Negative Urine Ketones Negative Urine Blood Negative Urine Nitrite Negative Urine Bilirubin Negative Urine Urobilinogen Negative Ur Leukocyte Esterase Negative 10/11/19 10/11/19 10/11/19 06:28 06:28 06:28 WBC 9.60 RBC 4.81 Hgb 13.9 L Hct 41.3 L MCV 85.9 MCH 28.9 MCHC 33.7 RDW Std Deviation 41.4 RDW Coeff of Josefina 13.2 Plt Count 269 MPV 9.5 Immature Gran % (Auto) 0.1 Neut % (Auto) 72.4 Lymph % (Auto) 17.8 Churchill % (Auto) 7.5 Eos % (Auto) 2.0 Baso % (Auto) 0.2 Immature Gran # (Auto) 0.01 Neut # (Auto) 6.95 H Lymph # (Auto) 1.71 Churchill # (Auto) 0.72 H Eos # (Auto) 0.19 Baso # (Auto) 0.02 ESR 19 H Sodium 139 Potassium 4.3 Chloride 108 H Carbon Dioxide 26 Anion Gap 5.0 BUN 10 Creatinine 1.04 Est Cr Clr Drug Dosing 57.6 Est GFR ( Amer) 78.8 Est GFR (Non-Af Amer) 68.0 BUN/Creatinine Ratio 9.5 L Glucose 93 Estimat Average Glucose Hemoglobin A1c Calcium 9.7 Total Bilirubin AST ALT Alkaline Phosphatase Troponin I 0.083 H* C-Reactive Protein 0.70 H Total Protein Albumin Globulin Albumin/Globulin Ratio Triglycerides 125 Cholesterol 124 LDL Cholesterol, Calc 75 VLDL Cholesterol, Calc 25 HDL Cholesterol 24 Cholesterol/HDL Ratio 5 Lipase Prostate Specific Ag Urine Color Urine Appearance Urine pH Ur Specific [place] Urine Protein Urine Glucose (UA) Urine Ketones Urine Blood Urine Nitrite Urine Bilirubin Urine Urobilinogen Ur Leukocyte Esterase 10/11/19 06:28 WBC RBC Hgb Hct MCV MCH MCHC RDW Std Deviation RDW Coeff of Josefina Plt Count MPV Immature Gran % (Auto) Neut % (Auto) Lymph % (Auto) [place] % (Auto) Eos % (Auto) Baso % (Auto) Immature Gran # (Auto) Neut # (Auto) Lymph # (Auto) Churchill # (Auto) Eos # (Auto) Baso # (Auto) ESR Sodium Potassium Chloride Carbon Dioxide Anion Gap BUN Creatinine Est Cr Clr Drug Dosing Est GFR ( Amer) Est GFR (Non-Af Amer) BUN/Creatinine Ratio Glucose Estimat Average Glucose 120 Hemoglobin A1c 5.8 H Calcium Total Bilirubin AST ALT Alkaline Phosphatase Troponin I C-Reactive Protein Total Protein Albumin Globulin Albumin/Globulin Ratio Triglycerides Cholesterol LDL Cholesterol, Calc VLDL Cholesterol, Calc HDL Cholesterol Cholesterol/HDL Ratio Lipase Prostate Specific Ag Urine Color Urine Appearance Urine pH Ur Specific [place] Urine Protein Urine Glucose (UA) Urine Ketones Urine Blood Urine Nitrite Urine Bilirubin Urine Urobilinogen Ur Leukocyte Esterase Diagnostic Findings CT scan of the abdomen and pelvis did not reveal any acute pathology. ECG Additional Comments: EKG demonstrated sinus bradycardia with first-degree AV block and right bundle branch block. Unchanged from prior. PG Care Time/CCT Total # of Minutes Spent Total Time Spent with Patient: Total time spent is greater than 50% in coordination of care (as documented) at patient's floor/unit and/or counseling patient: Coding Level of Care Code 32269 Initial Inpt Care Lvl 3 Diagnoses History of coronary artery disease Z86.79 Right bundle branch block I45.10
[2019-10-11] MEDS ORDERED: NON-FORMULARY MEDICATION (Red Yeast Rice 600 MG) PO SCH (09:00)
[2019-10-11] MEDS ORDERED: VITAMIN B COMPLEX TAB PO SCH (09:00)
[2019-10-11] MEDS ORDERED: FLUTICASONE PROPIONATE NA SPR 16 GM BTL SCH (09:00)
[2019-10-11] MEDS ORDERED: MULTIVITAMIN TAB PO SCH (09:00)
[2019-10-11] MEDS ORDERED: REGADENOSON 0.4 MG/5 ML SYR IV ONE (09:22)
[2019-10-11] MEDS ORDERED: OMEGA-3 (PURIFIED FISH OIL) 1 GM CAP PO SCH (11:30)
[2019-10-11] MEDS ORDERED: POLYETHYLENE (MIRALAX) 17 GM PACK PO PRN (11:46)
[2019-10-11] MEDS ORDERED: DOCUSATE SODIUM 100 MG CAP PO SCH (12:00)
[2019-10-11] MEDS ORDERED: SULFAMETHOXAZOLE/TRIMETHOPRIM DS 800/160MG TAB PO ONE (13:00)
--- NOTE | 2019-10-11 15:44 | Myocardial Perfusion Study ---
Date of Service October 11, 2019 Myocardial Perfusion Study Blk Myocardial Perfusion Study Report Myocardial Perfusion Study Report One day nuclear medicine technetium 99m Cardiolite myocardial perfusion scan Clinical history: This stress test is being performed because of a chest pain syndrome. Comparison: None Technique: For the stress portion of the study, 33.6 mCi of technetium 99m Cardiolite IV was injected at 10:50 a.m. on October 11, 2019. Thirty minutes following the injection, imaging of the heart was performed in multiple projections. For the rest portion of the study, 10.5 mCi of technetium 99m Cardiolite was injected IV at 9:10 a.m. on October 11, 2019. One hour following the injection, imaging of the heart was performed in the same projections. Lexiscan administration: For the stress portion of the study, the patient received 0.4 mg of Lexiscan injected intravenously. The patient did not experience Lexiscan induced chest discomfort. There were no EKG changes. Following the study, the patient was hemodynamically stable and without complaints. Findings: The short axis, vertical long axis, horizontal long axis, rotating, and gated images were reviewed in detail. There was normal myocardial perfusion at both stress and rest thus excluding a prior myocardial infarction or evidence of stress induced myocardial ischemia. The left ventricle demonstrates normal systolic function without wall motion abnormalities. The left ventricular ejection fraction is 71 %. Conclusions: 1. No scintigraphic evidence of a prior myocardial infarction or stress-induced myocardial ischemia. 2. No Lexiscan induced chest pain. 3. No Lexiscan induced EKG changes. 4. Normal left ventricular systolic function without wall motion abnormality. Left ventricular ejection fraction is 71 %. [facility] Myocardial perfusion code Procedure Code Procedure 1: Myocardial Perfusion Codes: 99879 Cardiovascular Stress Test, multiple Procedure 2: Myocardial Perfusion Codes: 88805 Cardiovascular Stress Test, supervision only Procedure 3: Myocardial Perfusion Codes: 65974 Cardiovascular Stress Test, interpretation and report
--- NOTE | 2019-10-11 15:54 | Discharge Summary ---
Date of Service October 11, 2019 Admission HPI Per Admitting Provider Germán Daniel is a 78 year old male who presents to the ER at the advice from [place] due to bilateral CVA and suprapubic tenderness on palpation. I was unable to get much of a history from the patient as I mentioned his UA had not been resulted yet and he was insisting on being admitted for a prostate biopsy that I told him there was no way he would be able to have. He threatened to leave on several occasions saying I was not helping him and he was going to of prostate cancer. He did not care if he of a heart attack but he did not want to of prostate cancer in pain. It took over 60 minutes with the patient including a patient requested call to our hand surgeon urologist Dr Barbosa to make him understand his acute problem was his heart and the reasons I did not feel his prostate was an acute issue right now. As such gaining much of a history from the patient was limited as he was not forthcoming with answering my questions and had his own agenda which appears to be his suprapubic pain is due to his prostate and he feels this is cancerous and needs to be dealt with now in order to get out of pain. With regards to his chest pain - this was not the reason for his visit to the ER however he had an elevated troponin and admits to having intermittent chest pains at rest and frequently on light exertion lasting for minutes at a time which is relieved with rest. No radiation. No currently in pain. Episodes at rest come on when he is worked up. With regards to his suprapubic "prostate" and CVA tenderness - as far as I can gather this started 3-4 weeks ago. No related to bowel movements or passing urine but worse on deep palpation. Constant ache. No nausea, vomiting, constipation, diarrhea or melena. Principal Diagnosis chest pain Discharge Exam Constitutional WD/WN, vitals as above Eyes PERRL, conjunctivae normal, anicteric sclerae ENMT external ear and nose normal, oropharynx normal Neck trachea midline, no thyromegaly Respiratory normal respiratory effort, lungs clear to auscultation Cardiovascular RRR, no murmur, no edema Gastrointestinal (Abdomen) normal bowel sounds, soft, nontender, no hepatosplenomegaly Musculoskeletal no cyanosis or clubbing, extremities motor strength 5/5 Skin no rashes, warm and dry Neurologic patellar DTR's 2+ bilat, sensation intact and PERRL, EOMI, accommodation nl, no face palsy, no dysarthria Psychiatric A+Ox3, euthymic affect Lymphatic no cervical or axillary lymphadenopathy Discharge Data Allergies Allergy/AdvReac Type Severity Reaction Status Date / Time ezetimibe AdvReac Unknown MYOPATHY Verified 09/13/19 09:28 Coidymy-Wgb-Yfs Reductase AdvReac Unknown MYOPATHY Verified 09/13/19 09:28 Inhibitor Consultations 10/10/19 16:02 ED Decision to Admit Stat 10/10/19 20:52 Consult Cardiology Routine 10/10/19 20:55 Consult [facility] construction area manager Routine 10/11/19 01:28 Consult Gastroenterology Routine Ordered Studies 10/10/19 12:41 CT abd pelvis IV con only Stat Hospital Course (1) Chest pain, rule out acute myocardial infarction: Admit to PCU with classroom monitor negative troponins, no ischemic changes in EKG Lexiscan stress test on 10/11 was negative for ischemia okay to d/c to home per cardiology continue antiplatelet therapy (2) Coronary artery disease: NSTEMI 06/2010 with x1 JAZMÍN to D1 and 1 JAZMÍN to OM Continue ASA, intolerant to statins (3) Dyslipidemia: intolerant to statins (4) Elevated PSA: elevated at 12, no prior records could be found to compare with symptoms of suprapubic pain, some hesitancy but stream is good CT abdomen/pelvis with enlarged prostate but no urinary distension, no hydronephrosis, normal kidneys due to the pain, recommend treating possible prostatitis with Bactrim DS BID x 28 days follow up with PCP should repeat PSA in 5 weeks to see if it improved patient was advised to have prostate exam, he refused here in hospital because he said it would be painful needs to follow up closely with PCP he has an appt with urology in January, perhaps PCP could get an appt sooner no indication for inpatient consultation at this time as no signs of obstruction, no renal failure (5) BPH (benign prostatic hyperplasia): see above not much in terms of LUTS continue Terazosin treat possible prostatitis (6) Suprapubic pain: will treat for possible prostatitis no obvious etiology seen on CT abd/pelvis (7) Abdominal pain: no etiology on CT abdomen/pelvis (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 (9) GERD (gastroesophageal reflux disease): continue PPI and H2 albert Total Time Total Time Spent Total Time Spent (In Minutes): 33 minutes Total Time Includes: Examination of the Patient, Discharge Planning, Medication Reconciliation and Communication With Other Providers Discharge Plan Discharge Items Patient Disposition: Home - Self-Care Reason For Visit: CHEST PAIN R/O TN Discharge Diagnosis: Chest pain, no evidence of acute heart attack, normal Lexiscan stress test Likely prostatitis, elevated PSA Condition on Discharge: Good Goals: treat possible prostatitis with Bactrim, follow up with PCP follow up with urology in January Activity: Resume your previous activity Non-emergency contact: Primary Care Provider Call non-emergency contact if: you have any medication questions, your symptoms worsen and you have a fever Follow-up/Referrals: Saurav Lucero MD [Primary Care Provider] - 10/16/19 3:45 pm (Oct @[address] Saurav Hill. Confirmed with Desiree at [facility]) Diet: Heart Healthy Addtl Attending Provider Instructions: Medications: - SULFA/TRIM: take one tablet twice a day for 4 weeks, this is to treat possible prostatitis - COLACE: take one tablet twice a day, take with full glass of water Chest pain: no evidence of acute TN Lexiscan stress test is without ischemia Lower abdominal pain: most likely due to enlarged prostate, possible prostatitis recommend treating with Bactrim for 4 weeks and then repeating PSA prostate is enlarged on CT scan there were no other abnormalities, kidneys, ureters and bladder normal Pending Studies at Discharge: No Stand-Alone Forms: My [facility] amazingtunes, Smoking Cessation Medications and DC Order Prescriptions: New docusate sodium 100 mg Capsule 100 mg PO BID 14 Days Qty: 28 RF: 0 sulfamethoxazole-trimethoprim 800-160 mg tablet 1 tab PO BID 28 Days Qty: 56 RF: 0 Continued fluticasone propionate [Flonase Allergy Relief] 50 mcg/actuation spray,suspension 2 sprays INTNAS DAILY Qty: 15.8 RF: 2 meloxicam 15 mg tablet 15 mg PO daily PRN (Reason: pain) Qty: 30 RF: 2 clonazepam 0.5 mg tablet 0.5 mg PO BID PRN (Reason: anxiety) Qty: 14 RF: 0 multivitamin Tablet 1 tab PO QAM RF: 0 terazosin 1 mg capsule 1 mg PO BID RF: 0 aspirin 81 mg Tablet,Delayed Release (Dr/Ec) 81 mg PO HS RF: 0 nitroglycerin [Nitrostat] 0.4 mg Tablet, Sublingual 0.4 mg sublingual UD RF: 0 vitamin B complex Tablet 1 tab PO QAM RF: 0 omega 5-zxm-thn-fish oil [Fish Oil] 1,000 mg (120 mg-180 mg) Capsule 1 cap PO QDL RF: 0 red yeast rice 600 mg Tablet 600 mg PO QAM RF: 0 temazepam 15 mg capsule 15 mg PO HS PRN (Reason: Insomnia) RF: 0 lansoprazole 30 mg capsule,delayed release(DR/EC) 30 mg PO BID RF: 0 Discharge Orders: Discharge Order (Routine); Ordered 10/11/19 Ordered By: Lenny Hodges Admission Data Admit Date/Time: 10/10/19 18:31 Attending Provider: Lenny Hodges Admit Provider: Favio Jacob Primary Care Provider: Saurav Lucero Other Providers: Favio Jacob ; Ho Huff ; Maury Madden Other Interventions: Discharge Summary Assessment (RN) Last Done: 10/11/19 15:25 DC Date/Time DO NOT enter until pt leaves facility: 10/11/19 17:00 Coding Level of Care Code D/C Day Management >30 mins Diagnoses Chest pain, rule out acute myocardial infarction R07.9 Coronary artery disease I25.110 Associated angina: with unstable angina Coronary Disease-Associated Artery/Lesion type: ruby artery [place] vs. transplanted heart: ruby heart Dyslipidemia E78.5 Elevated PSA R97.20 BPH (benign prostatic hyperplasia) N40.1; R35.0 Lower urinary tract symptom detail: urinary frequency Lower urinary tract symptom presence: symptoms present Suprapubic pain R10.2 Abdominal pain R10.84 Abdominal location: generalized Mesenteric panniculitis K65.4 GERD (gastroesophageal reflux disease) K21.9 Esophagitis presence: without esophagitis
[2019-10-11] MEDS ORDERED: SENNA 8.6 MG TAB PO SCH (21:00)
== END 2019-10-11 17:00 | disposition home or self-care (01) ==
LOC: ED 12:02 → 2E 12:02 → SUATTDRO 18:31 → 2E 19:08

== ENCOUNTER 2022-11-17 07:06 | Inpatient (IN) ==
--- NOTE | 2022-10-27 10:25 | PAT Medication Instructions ---
Medication Instructions Date of Service October 27, 2022 Home Medications Medication Instructions Recorded meloxicam 15 mg tablet 15 mg PO daily PRN pain #30 tabs 07/24/19 clonazepam 0.5 mg tablet 0.5 mg PO BID PRN anxiety #14 tabs 08/27/19 oxycodone 5 mg tablet 5 mg PO TID PRN pain #10 tabs 10/17/22 aspirin 81 mg tablet,delayed release 81 mg PO HS multivitamin 1 tab PO QAM omega 6-jmn-ois-fish oil 1,000 mg (120 mg-180 mg) capsule (Fish Oil) 1 cap PO QAM vitamin B complex 1 tab PO QAM meloxicam 15 mg tablet 15 mg PO daily PRN pain clonazepam 0.5 mg tablet 0.5 mg PO BID PRN anxiety lansoprazole 30 mg capsule,delayed release 30 mg PO BID nitroglycerin 0.4 mg sublingual tablet (Nitrostat) 0.4 mg sublingual UD PRN Chest Pain docusate sodium 100 mg capsule 100 mg PO BID finasteride 5 mg tablet 5 mg PO BID gabapentin 300 mg capsule 300 mg PO DAILY PRN nerve pain oxycodone 5 mg tablet 5 mg PO TID PRN pain acetaminophen 650 mg tablet,extended release 650 mg PO Q8H PRN Pain fluticasone propionate 50 mcg/actuation nasal spray,suspension (Flonase Allergy Relief) 2 sprays intranasal QAM PRN Congestion Continue as directed nitroglycerin 0.4 mg sublingual tablet (Nitrostat) 0.4 mg sublingual UD PRN Chest Pain (if needed) ASK your surgeon for instructions meloxicam 15 mg tablet 15 mg PO daily PRN pain ASK your prescriber and surgeon aspirin 81 mg tablet,delayed release 81 mg PO HS STOP taking 2 weeks before surgery (or as soon as possible if surgery is within 2 weeks) omega 0-tqh-ekq-fish oil 1,000 mg (120 mg-180 mg) capsule (Fish Oil) 1 cap PO QAM DO NOT take the morning of surgery multivitamin 1 tab PO QAM vitamin B complex 1 tab PO QAM docusate sodium 100 mg capsule 100 mg PO BID Take morning of surgery With a small sip of water, OTHERWISE NOTHING TO EAT OR DRINK AFTER MIDNIGHT: clonazepam 0.5 mg tablet 0.5 mg PO BID PRN anxiety (if needed) lansoprazole 30 mg capsule,delayed release 30 mg PO BID finasteride 5 mg tablet 5 mg PO BID gabapentin 300 mg capsule 300 mg PO DAILY PRN nerve pain (if needed) oxycodone 5 mg tablet 5 mg PO TID PRN pain (if needed) acetaminophen 650 mg tablet,extended release 650 mg PO Q8H PRN Pain (if needed) fluticasone propionate 50 mcg/actuation nasal spray,suspension (Flonase Allergy Relief) 2 sprays intranasal QAM PRN Congestion (if needed) Take evening before surgery clonazepam 0.5 mg tablet 0.5 mg PO BID PRN anxiety (if needed) lansoprazole 30 mg capsule,delayed release 30 mg PO BID docusate sodium 100 mg capsule 100 mg PO BID finasteride 5 mg tablet 5 mg PO BID gabapentin 300 mg capsule 300 mg PO DAILY PRN nerve pain (if needed) oxycodone 5 mg tablet 5 mg PO TID PRN pain (if needed) acetaminophen 650 mg tablet,extended release 650 mg PO Q8H PRN Pain (if needed) Other Notes If you have any questions please call us at [phone] or [phone] or [phone] or [phone]
--- NOTE | 2022-10-29 09:15 | Anesthesiology Consultation ---
Date of Service October 29, 2022 Assessment & Plan (1) Encounter for pre-operative examination: - Outpatient joint assessment: Pt currently scheduled for inpatient pathway. If surgeon requests review for outpatient joint pathway, patient is not recommended candidate for outpatient joint program from anesthesia standpoint. - S/P laparoscopic cholecystectomy (03/22/18): Grade 1 view, MAC#3, ETT 7.5. No issues noted per post-op anesthesia progress note. - COVID screening: Per assessment on 10/29: No known COVID-19 positive contacts. Travel screen negative. Patient reports ongoing fatigue and nausea for the past few weeks which he feels are related to recent pain medications he has been taking after fall/injury (negative Covid home test 10/16/22). Covid test done at [facility] visit 10/29/22 came back negative. - Recent fall (09/28/22): Mechanical fall down a flight of stairs. LOC (woke up in ER). Negative head imaging. + left sided rib fractures/small pneumothorax. Transferred from [facility] to [place]. Pneumothorax remained small and did not require intervention beyong oxygen/incentive spirometry. Sent to [facility] rehab 10/03/22. Discharged to home 10/06/22. Patient seen at [facility] 10/29/22- still having left sided rib pain but continuing to improve. Healing - Preop EKG: EKG done 10/29/22 notes Bifascicular block. Workload message sent to PCP. Awaiting EKG response and surgeon-ordered PCP preop evaluation ([facility], appt 11/11). Chart Review Chart Review: Patient seen in Pre Admission Testing History Surgery Operation Date: 11/17/22 09:55 Proposed Procedures p Left Total Shoulder Arthroplasty Reverse - James Gibson MD Height/Weight Height: 5 ft 10 in Weight: 81.4 kg Allergies Allergy/AdvReac Type Severity Reaction Status Date / Time ezetimibe AdvReac Unknown MYOPATHY Verified 10/27/22 09:07 Vxifgbw-OSH-BqZ Reductase AdvReac Unknown MYOPATHY Verified 10/27/22 09:07 Inhibitor [Njxxtww-Uxz-Gjj Reductase Inhibitor] Medications Home Medications Medication Instructions Recorded Confirmed Last Taken aspirin 81 mg tablet,delayed 81 mg PO HS 11/24/18 10/27/22 11/23/18 release multivitamin 1 tab PO QAM 11/24/18 10/27/22 11/24/18 omega 9-bww-dae-fish oil 1,000 mg 1 cap PO QAM 11/24/18 10/27/22 11/23/18 12:00 (120 mg-180 mg) capsule (Fish Oil) vitamin B complex 1 tab PO QAM 11/24/18 10/27/22 11/24/18 meloxicam 15 mg tablet 15 mg PO daily PRN pain #30 tabs 07/24/19 10/27/22 Unknown clonazepam 0.5 mg tablet 0.5 mg PO BID PRN anxiety #14 tabs 08/27/19 10/27/22 Unknown lansoprazole 30 mg capsule,delayed 30 mg PO BID 08/27/19 10/27/22 Unknown release nitroglycerin 0.4 mg sublingual 0.4 mg sublingual UD PRN Chest Pain 03/21/20 10/27/22 Unknown tablet (Nitrostat) docusate sodium 100 mg capsule 100 mg PO BID 08/26/22 10/27/22 Unknown finasteride 5 mg tablet 5 mg PO BID 08/26/22 10/27/22 Unknown gabapentin 300 mg capsule 300 mg PO DAILY PRN nerve pain 08/26/22 10/27/22 Unknown oxycodone 5 mg tablet 5 mg PO TID PRN pain #10 tabs 10/17/22 10/27/22 Unknown acetaminophen 650 mg 650 mg PO Q8H PRN Pain 10/27/22 10/27/22 Unknown tablet,extended release fluticasone propionate 50 2 sprays intranasal QAM PRN 10/27/22 10/27/22 Unknown mcg/actuation nasal Congestion spray,suspension (Flonase Allergy Relief) Past Medical History Medical History (Updated 10/29/22 @ 09:31 by Britt Estes) Acid reflux Anxiety Chronic back pain Chronic obstructive pulmonary disease Coronary artery disease JAZMÍN x1 to DI, JAZMÍN x1 to OM (2009) per available records 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 Dyslipidemia Elevated PSA Heart attack NSTEMI (2009) > stents x2 History of prostate cancer History of skin cancer s/p excision (left thumb) Hx of fall 09/2022, fell down flight down stairs, "broke some ribs, tore some tendons" Hx of pneumothorax Per patient, told it was "very small" and "would heal on its own" Hypertension Exercise / Class Metabolic Activity II 4-5 Yardwork/Stairs/Walk up hill (one FS (no CP, no SOB)) Past Family History Family History Father Myocardial infarction Unknown ASCVD (arteriosclerotic cardiovascular disease) Aunt Breast cancer Brother Myocardial infarction Denies family history of Ovarian cancer Prostate cancer Colorectal cancer Past Surgical History Surgical History H/O cardiac catheterization 2009 ([facility])- JAZMÍN x2 per records 2013 ([facility]) - widely patent stents, nonocclusive CAD History of bronchoscopy Per records, pt unaware History of colonoscopy History of esophagogastroduodenoscopy (EGD) History of knee surgery Right per records (pt denies) History of tonsillectomy S/P cholecystectomy Past Anesthesia History No Hx of Anesthesia Complications and No Family Hx of Anesthesia Complications History of PONV No Hx of PONV and No Hx of Motion Sickness Social History Smoking Status: Former smoker tobacco type: cigarettes and smokeless tobacco Do You Dip or Chew Tobacco: No (Hx-quit 30 years ago) Smoking End Date: Quit 40 years ago Hx Alcohol Use: Yes Alcohol type: beer alcohol intake frequency: a few times a month Alcohol Intake Frequency Comment: occasional Hx Substance Use: No substance use type: does not use Review of Systems Patient denies chest pain, shortness of breath, dyspnea on exertion, fever, chills, cough, wheezing, palpitations. Physical Exam Vital Signs VITALS BP 108/70 P 69 TEMP 98.2 SP02 95%RA RESP 16 PHYSICAL Full cervical extension range of motion. Full TMJ range of motion. TMD 4 finger breaths Mallampati Score 2 Dentition: several missing (sides/molars) Lungs: clear throughout to auscultation Cardiac: regular rate and rhythm, no murmurs noted Spine: normal Carotid arteries: negative bruit Extremities: no edema Lab Results Anesthesia Preop Results Results Anesthesia Widget: WBC 10.20 K/ul (4.8-10.8) 10/13/22 Hgb 14.5 g/dl (14.0-18.0) 10/13/22 Hct 42.3 % (42.0-52.0) 10/13/22 Plt 476 K/uL (130-400) H 10/13/22 Na 138 mmol/L (136-145) 10/18/22 K 4.2 mmol/L (3.5-5.1) 10/18/22 Cl 106 mmol/L (98-107) 10/18/22 CO2 24 mmol/L (21-32) 10/18/22 BUN 13 mg/dL (7-18) 10/18/22 Creat 1.3 mg/dL (0.6-1.4) 10/18/22 Glucose Level 105 mg/dL H 10/18/22 PT 10.7 Seconds (9.0-12.0) 10/29/22 PTT 28.1 Seconds (21.0-31.0) 10/29/22 INR 1.0 (0.9-1.1) 10/29/22 HA1c 5.9 % (4.5-5.6) H 10/29/22 Urine Color Dark Yellow 09/28/22 Urine Appearance Clear (Clear) 09/28/22 Urine pH 7.5 (4.5-7.5) 09/28/22 Urine Specific [place] 1.019 (1.000-1.030) 09/28/22 Urine Protein Negative (Negative) 09/28/22 Urine Glucose (UA) Negative (Negative) 09/28/22 Urine Ketones Trace (Negative) H 09/28/22 Urine Blood Negative (Negative) 09/28/22 Urine Nitrite Negative (Negative) 09/28/22 Urine Bilirubin Negative (Negative) 09/28/22 Urine Urobilinogen Negative (Negative) 09/28/22 Urine Leukocyte Esterase Negative (Negative) 09/28/22 SARS-CoV-2, RNA, NAAT NEGATIVE (NEGATIVE) 09/28/22 Blood Type A Positive 10/29/22 Antibody Screen NEGATIVE 10/29/22 Testing Electrocardiogram Date: 10/29/22 Sinus rhythm with first-degree AV block with PACs at 69 bpm. RBBB. LAFB. *Bifascicular block* Compared with 10/08/2022, PACs now present, nonspecific T wave abnormality no longer evident in inferior leads. Chest X-Ray Date: 10/29/22 FINDINGS: No pneumothorax or pleural effusion is present. Several healing left- sided rib fractures are again noted. These were shown on chest CT September 28, 2022. Cardiomegaly is unchanged. There is no evidence for pulmonary edema. No consolidation is identified to suggest pneumonia. IMPRESSION: No acute cardiopulmonary findings. Stable cardiomegaly. Healing left-sided rib fractures. No pneumothorax. Stress Test Date: 10/11/19 Type: nuclear No scintigraphic evidence of a prior myocardial infarction or stress-induced myocardial ischemia. No Lexiscan induced chest pain. No Lexiscan induced EKG changes. Normal left ventricular systolic function without wall motion abnormality. Left ventricular ejection fraction is 71 %. Other Testing Head CT (09/28/22) Findings: The paranasal sinuses and mastoid air cells are clear. The calvarium and skull base are intact. There is no mass, hematoma, midline shift, acute infarct. White matter hypodensity is nonspecific but suggestive of microvascular ischemic change. The ventricles and sulci demonstrate mild age-related involutional changes. Mild left periorbital soft tissue swelling. Impression: No acute intracranial abnormality. Mild left periorbital soft tissue swelling. Cervical spine CT (09/28/22) Acute fractures of the left third through sixth ribs, some of which demonstrate mild displacement. Tiny left-sided pneumothorax. Trace pleural effusions with mild bibasilar atelectasis. COVID-19 Risk Screen Screening Information COVID-19 Screen Date: 10/29/22 Exposure 21 Days Family/Household +COVID Last 21 Days: No Exposure 10 Days Any COVID Exposure Last 10 Days: No Symptoms Last 10 Days Experienced COVID Sx Last 10 Days: Yes Covid Sx 10 Day Pathway: If patient has symptoms, they should follow up with their PCP/surgeon to be COVID -19 tested and for further instructions related to their illness. Order COVID Testing COVID-19 Test Result pathway: * If the COVID Test is Negative, other risk factors are acceptable, and the patient is feeling well; proceed with procedure. * If the COVID-19 test is Positive: * Elective procedures will be cancelled/rescheduled per Policy 1096. * Urgent or Emergent procedures will need documentation that the procedure is medically necessary and precautions implemented per Policy 1096. Policies and Procedures Refer to Policy and Procedure 1096 for Initiation & Discontinuation of Transmission-Based Precautions for Confirmed and Suspected SARS-CoV-2 Infection which can be found on the Intranet in the Clinical Resources Manual by clicking on the link below: [email or web address]%20and%20Discontinuation%20of%20Transmission.pdf#search=discontinuati on%20of%20Transmission%2DBased + COVID 0-90 Days COVID + in Last 0-90 Days: No
--- NOTE | 2022-11-16 09:55 | History & Physical Report ---
Date of Service November 16, 2022 Assessment & Plan (1) Full thickness rotator cuff tear: Plan: Treatment options discussed with the patient. He has a massive retracted tear of his rotator cuff. We discussed that this is something likely not amenable to repair. Best option to regain function is to proceed with reverse TSA. Risks, benefits and alternatives to surgery including but not limited to infection, DVT, pain, stiffness, need for revision surgery, damage to blood vessels, damage to nerves, PE, , were discussed with the patient and they wish to proceed. Plan for left reveres total shoulder arthroplasty scheduled for [facility] on 11/17/[address] Gibson. All questions answered. He will follow up post op. Rotator cuff tear trauma status: traumatic Encounter type: subsequent encounter Laterality: left Qualified Code(s): S46.012D - Strain of muscle(s) and tendon(s) of the rotator cuff of left shoulder, subsequent encounter History of Present Illness Chief Complaint: Left shoulder pain Primary Care Provider: Saurav Lucero MD 81yo male with PMHx significant for COPD, CAD, hx of NE, pneumothorax who presents with ongoing left shoulder pain. Pain is interfering with his daily activity. He has failed conservative measures. Patient suffered a fall several weeks ago fracturing multiple ribs and injuring his shoulder, as well as suffering a pneumothorax. He would like to proceed with surgical intervention. Patient denies headaches, sweats, fevers, chills, double vision, blurred vision, cough, sore throat, dysphagia, chest pain, sob, wheezing, n/v/d/c, numbness, tingling, fatigue, urinary symptoms, mood disorders. ROS positive for left shoulder pain and stiffness. Allergies Allergy/AdvReac Type Severity Reaction Status Date / Time ezetimibe AdvReac Unknown MYOPATHY Verified 11/15/22 08:10 Caynmzg-JDK-OsL Reductase AdvReac Unknown MYOPATHY Verified 11/15/22 08:10 Inhibitor [Ygasznf-Rlw-Bdb Reductase Inhibitor] Home Medications Medication Instructions Recorded Confirmed Type aspirin 81 mg tablet,delayed 81 mg PO HS 11/24/18 11/15/22 History release vitamin B complex 1 tab PO QAM 11/24/18 11/15/22 History lansoprazole 30 mg capsule,delayed 30 mg PO BID 08/27/19 11/15/22 History release nitroglycerin 0.4 mg sublingual 0.4 mg sublingual UD PRN Chest Pain 03/21/20 11/15/22 History tablet (Nitrostat) docusate sodium 100 mg capsule 100 mg PO BID 08/26/22 11/15/22 History finasteride 5 mg tablet 5 mg PO BID 08/26/22 11/15/22 History acetaminophen 650 mg 650 mg PO Q8H PRN Pain 10/27/22 11/15/22 History tablet,extended release fluticasone propionate 50 2 sprays intranasal QAM PRN 10/27/22 11/15/22 History mcg/actuation nasal Congestion spray,suspension (Flonase Allergy Relief) Past Med/Surg History Medical History Acid reflux Anxiety Chronic back pain Chronic obstructive pulmonary disease Coronary artery disease 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 Dyslipidemia Elevated PSA Heart attack History of prostate cancer History of skin cancer Hx of fall Hx of pneumothorax Hypertension Surgical History H/O cardiac catheterization History of bronchoscopy History of colonoscopy History of esophagogastroduodenoscopy (EGD) History of knee surgery History of tonsillectomy S/P cholecystectomy Family History Father Myocardial infarction Unknown ASCVD (arteriosclerotic cardiovascular disease) Aunt Breast cancer Brother Myocardial infarction Denies family history of Ovarian cancer Prostate cancer Colorectal cancer Social History Smoking Status: Former smoker Tobacco Type: Cigarettes Second Hand Exposure: No; Hx Alcohol Use: Yes Alcohol type: beer Alcohol Intake Frequency: 2-4 x/Month Alcohol Intake Frequency Comment: 2 beers a week Hx Substance Use: No Preferred Language: Setswana Communication Ability: Effective Visual Impairment: Diminished Hearing Ability: Use of Hearing Aid Fashion Adviser Required: No Beliefs That Will Affect Care: None marital status: / Current Living Situation: Family and Other Current Living Situation Comment: son currently staying w/pt. current occupational status: retired How many Children do You have: 2 Feels Safe at Home: Yes Childhood Exposure to Second-Hand Smoke: Yes caffeine: Yes Dental Care, Regularly: No Physical Activity Frequency: 1-2 Times per Week Physical Activity Frequency Comment: swimming Seatbelt Use: always Sunscreen Use: Yes Assistive Devices: Glasses and Hearing Aid - Left Review of Systems All systems reviewed & are unremarkable except as noted in HPI & below Physical Exam Constitutional: well developed and well nourished; no acute distress Eyes: PERRL, conjunctivae normal, anicteric sclerae ENMT: external ear and nose normal, oropharynx normal Neck: trachea midline, no thyromegaly Respiratory: normal respiratory effort, lungs clear to auscultation Cardiovascular: RRR, no murmur, no edema Musculoskeletal: Left shoulder: positive impingement signs. Tenderness anterolateral acromion. Strength: 2/5 abduction, 4-/5 ER, 4/5 IR. Significant pain with passive and active ROM. FF to 45 degrees, abduction to 30 degrees actively, ER to 10 degrees. Skin: no rashes, warm and dry Neurologic: patellar DTR's 2+ bilat, sensation intact Psychiatric: A+Ox3, euthymic affect Results & Data ([facility]) Diagnostic Findings Left shoulder MRI demonstrates a massive retracted tear of his rotator cuff involving at least the supraspinatus likely extending into the infraspinatus. The subscapularis and teres minor appear to be intact. Patient does not have a significant amount of fatty atrophy. X-rays demonstrate Mild degenerative changes. Type II acromion.
[~2022-11-17 07:06] MED LIST changes: +ACETAMINOPHEN 500 MG TAB PO SCH; -ASPI81TA28 PO; +BUPIVACAINE 0.5 % 5 MG/1 ML PF 10ML VIAL ONE; +CeleBREX 200 MG CAP PO SCH; +FAMOTIDINE 20 MG TAB PO SCH; +GABAPENTIN 300 MG CAP PO SCH; -LANS15CA6 PO; +LIDOCAINE 2% MPF LOCAL 5 ML VIAL INFIL ONE; +LR 15ML/HR IV SCH; -METO-551 PO; +METOCLOPRAMIDE HCL 10 MG TABLET PO SCH; -MULT-506 PO; -NITR0.4S UT; -OMEG10007 PO; -SILO8CAP PO; -THIA100T11 PO; +TRANEXAMIC ACID 1,000 MG **IV Intra-op IV SCH; +TRANEXAMIC ACID 1,000 MG **IV Pre-op IV SCH; +ceFAZolin 2000MG 2,000 MG/15 ML SYR IV SCH; +dexAMETHasone 4 MG TAB PO SCH; -red yeast rice PO
[2022-11-17] MEDS ORDERED: MIDAZOLAM HCL 1 MG/ML 2ML VIAL ONE (08:46)
[2022-11-17] MEDS ORDERED: ROCURONIUM BROMIDE 10 MG/ML 5 ML VIAL IV ONE ×3 (08:46→12:14)
[2022-11-17] MEDS ORDERED: PROPOFOL IV EMULSION 10 MG/ML 20 ML VIAL IV ONE (08:46)
[2022-11-17] MEDS ORDERED: LIDOCAINE 2% MPF LOCAL 5 ML VIAL INFIL ONE (08:46)
[2022-11-17] MEDS ORDERED: fentaNYL citrate PF 100 MCG/2 ML VIAL ONE ×3 (08:47→13:38)
--- NOTE | 2022-11-17 10:00 | History & Physical Bridge Note ---
Date of Service November 17, 2022 History & Physical Bridge Note I have examined the patient, reviewed the History & Physical and in the interval since the performance of the History & Physical I have noted the following changes of clinical significance: no changes noted
[2022-11-17] MEDS ORDERED: ONDANSETRON INJ 2 MG/ML 2 ML VIAL ONE (12:14)
[2022-11-17] MEDS ORDERED: ePHEDrine sulfate 50 MG/ML AMP ONE (12:47)
[2022-11-17] MEDS ORDERED: SUGAMMADEX SODIUM 200 MG/2 ML VIAL IV ONE (12:56)
--- NOTE | 2022-11-17 13:27 | Post Operative Brief Note ---
Immediate Post Op Note v1 Date of Surgery November 17, 2022 Pre & Post Diagnosis Operation Date: 11/17/22 09:55 Pre-Op Diagnosis: Left Shoulder Rotator Cuff Arthropathy, irreparable rotator cuff tear Post-Op Diagnosis: Left Shoulder Rotator Cuff Arthropathy, irreparable rotator cuff tear, biceps tenosynovitis I identified the patient and participated in the time-out.: Yes Procedure Operation Date: 11/17/22 09:55 Actual Procedures p Left Total Shoulder Arthroplasty Reverse(Left), biceps tenodesis teno synovectomy- James Gibson MD Surgeon James Gibson MD Front Office Associate Edward BEAN Estimated Blood Loss 100 Findings Consistent with Post-Op Diagnosis Specimens Humeral head Drains Hemovac Drain Anesthesia Type General Regional Complications none Disposition Disposition: Recovery Room Overlapping Procedure I was immediately available: during the entire case.
[2022-11-17] MEDS ORDERED: ATROPINE SULFATE 0.1 MG/ML 10ML SYR IV PRN (13:39)
[2022-11-17] MEDS ORDERED: PROMETHAZINE HCL 12.5 MG in SODIUM CHLORIDE 0.9% 50 ML IV PRN (13:39)
[2022-11-17] MEDS ORDERED: ACETAMINOPHEN 1,000 MG/100 ML VIAL IV STA (13:39)
[2022-11-17] MEDS ORDERED: ePHEDrine sulfate 50 MG/ML AMP IV PRN (13:39)
[2022-11-17] MEDS ORDERED: ONDANSETRON INJ 2 MG/ML 2 ML VIAL IV PRN ×2 (13:39→14:55)
[2022-11-17] MEDS: fentaNYL citrate PF 100 MCG/2 ML VIAL IV PRN ×4 (13:40→14:17)
--- NOTE | 2022-11-17 13:44 | Operative Report ---
Post Operative Report Pre & Post Diagnosis Operation Date: 11/17/22 09:55 Pre-Op Diagnosis: Left Shoulder Rotator Cuff Arthropathy, irreparable rotator cuff tear Post-Op Diagnosis: Left Shoulder Rotator Cuff Arthropathy, irreparable rotator cuff tear, biceps tenosynovitis I identified the patient and participated in the time-out.: Yes Procedure Operation Date: 11/17/22 09:55 Actual Procedures p Left Total Shoulder Arthroplasty Reverse(Left), biceps tenodesis biceps tenosynovectomy- James Gibson MD Surgeon James Gibson MD [employer] Edward BEAN Estimated Blood Loss 100 Findings Consistent with Post-Op Diagnosis Specimens Humeral head Drains 2 Hemovac Anesthesia Type General Regional Complications none Disposition Accompanied Patient To Recovery: No Indications 81-year-old male with history of a fall downstairs after which he fractured some ribs and injured his shoulder badly and cannot raise his arm overhead and MRI demonstrates a large retracted rotator cuff tear. Description of Procedure The patient was taken to the operating room and anesthetized under regional block and general anesthetic. The patient was positioned on the operating table in a 30 beach chair position with a towel roll under the medial border of the left scapula. The arm was draped free to be able to manipulate the shoulder as needed. The left upper extremity was prepped and draped in usual sterile fashion. Exam demonstrated good passive range of motion and a relatively thin individual.. An anterior deltopectoral approach was performed. A longitudinal incision was made in the deltopectoral interval. The skin was incised sharply. Subcutaneous flaps were elevated off the fascia. The cephalic vein was absent in this case. The clavipectoral fascia was divided at the lateral margin of the conjoined tendon and extended up to the CA ligament. 1 large crossing vein was tied off with silk ties and divided. The following findings were noted there was a large area of subacromial bursitis and a frayed torn rotator cuff from the supraspinatus back to the infraspinatus intact teres minor and intact subscapularis and some intact rotator interval tissue with some chronic tenosynovitis around the biceps tendon. The upper centimeter of the pectoralis was released for inferior exposure. A self-retaining retractor was placed. the biceps tendon was tenodesed to the pectoralis tendon with #2 FiberWire. The proximal biceps was resected. The subscapular muscle fibers were split longitudinally at the level of the circumflex vessels. The circumflex vessels were identified and tied off with silk ties and divided laterally. A Kitner elevator was used to free up the inferior fibers of the subscapularis off of the capsule. The axillary nerve was identified with a tug test and protected with a blunt Faina retractor between the nerve and the capsule. The subscapularis tendon was then taken down off of the lesser tuberosity subperiosteally, a Vicryl traction suture was placed and a subperiosteal dissection was performed along the neck of the humerus as the arm was gradually externally rotated exposing the humeral head. The humeral head findings demonstrated some grade 2- 3 superior wear on the articular head superior surface only otherwise intact articular cartilage and no osteophytes. retractors were readjusted and a Carballo elevator was used to assist in releasing the capsule of the neck of the humerus. The capsule was divided with Jackson scissors down to the glenoid released off the anterior glenoid and the rotator interval was released to meet the capsular release and a 360 release of the subscapularis was accomplished. A Fukuda retractor was placed into the joint retracting the humeral head posterior. Glenoid findings demonstrated intact articular cartilage and labrum with some widening of the biceps tendon. The labrum and biceps tendon was resected. an anterior-inferior and posterior inferior capsular release were performed with electrocautery and a Carballo elevator on bone with the axillary nerve protected inferiorly by the retractor. Attention was then taken to the humeral preparation. The cutting guide was placed into the humeral head. It was positioned at 20 of retroversion. Oscillating saw was used to resect the humeral head giving the cut above the level of the posterior rotator cuff insertion site. The humerus was then prepared for the stem. I used the ascend flex stem from [employer]. The sizing broaches were used followed by trial broaches up to a size 5B long which had the appropriate fit and fill. The appropriate sized cut protector was placed. The humerus was then retracted posterior to the glenoid. The glenoid was sized for a 29. The guide for the baseplate was positioned in a 10 inferior tilt and the central drill hole was made. The reamer for the 29 mm baseplate was used. The central drill was widened for the peg. The aequalis hydroxyapatite-coated standard post 29 mm baseplate was impacted into position. The base plate was transfixed with superior and inferior locking screws and anterior and posterior compression screws with stable fixation. The fan reamer was used for the 42 millimeter glenoid sphere. After irrigation the 42 standard glenoid sphere was impacted onto the baseplate and the security screw was tightened. Attention was taken back to the humerus. The cut protector was removed and the plus or high offset humeral tray trial was assembled to the trial stem rotated appropriately to get bony coverage and then screwed in position. A trial reduction was performed. A +6, 42 mm trial insert demonstrated good stability and no shuck. The trials were removed. 3 drill holes are made into the harder bone in the bicipital groove area and 3 #5 FiberWire sutures were placed transosseously. The canal was irrigated with pulsed saline solution. The final component was assembled. The final component was Tornier ascend flex 5B long stem assembled to the plus or high offset humeral tray with a +6, 46 mm polyethylene reversed insert. This was then impacted into the humerus with a tight press-fit. It was reduced to the glenoid sphere. Stability was verified. Subscapularis was repaired with the #5 FiberWire sutures using Dinesh-Per suture technique. Lateral row soft tissue repair was performed with #2 FiberWire [id number] sutures. The pectoralis was repaired with #2 FiberWire [id number] sutures reinforcing the biceps tendon tenodesis. The arm was taken through a range of motion which demonstrated forward elevation 160 degrees, external rotation 60 degrees and abduction 90 degrees. The implant was stable through the range of motion tested. The wound was copiously irrigated. 2 Hemovac drains were placed. The deltopectoral interval was closed with [id number] #1 Vicryl sutures. The subcutaneous tissues were closed with 2-0 Vicryl sutures. The skin was closed with silvano. Sterile dressings were applied and a shoulder immobilizer. Sam BEAN, my physician campus administrative assistant acted as anesthesia assistant throughout the procedure .He performed functions including patient positioning, arm positioning, prepping and draping, soft tissue retraction, instrument management, suture management and performed the subcutaneous and skin closure and will participate in the postoperative care of the patient. I attest to the content of the Intraoperative Record and any orders documented therein. Any exceptions are noted below.
[2022-11-17] MEDS: HYDROmorphone INJ 2 MG/ML SYR/VIAL IV PRN ×4 (13:49→14:04)
--- NOTE | 2022-11-17 14:03 | XRay Report ---
XR shoulder LT min 2V routine CLINICAL HISTORY: Post shoulder surgery COMPARISON STUDY: None. FINDINGS: Status post a reverse left total shoulder arthroplasty. The hardware is intact. No acute fr acture or dislocation. Skin silvano and surgical drains are in place. IMPRESSION: Status post reverse left total shoulder arthroplasty. No evidence for hardware complicat ion. ACT 112: Negative or not required by law. Electronically signed by: Blas Knight M.D. 11/17/2022 2:02 PM
[2022-11-17] MEDS ORDERED: bisacodyL 10 MG SUPP PR PRN (14:55)
[2022-11-17] MEDS ORDERED: HYDROmorphone HCL 2 MG TAB PO PRN (14:55)
[2022-11-17] MEDS ORDERED: NALOXONE HCL 0.4 MG/1 ML VIAL/CARP IV PRN (14:55)
[2022-11-17] MEDS ORDERED: METOCLOPRAMIDE HCL INJ 5 MG/ML 2 ML VIAL IV PRN (14:55)
[2022-11-17] MEDS ORDERED: NITROGLYCERIN SL 0.4 MG/TAB TAB SL PRN (14:55)
[2022-11-17] MEDS ORDERED: FLUTICASONE PROPIONATE NA SPR 16 GM BTL PRN (14:55)
[2022-11-17] MEDS ORDERED: MAGNESIUM HYDROXIDE SUSP 30 ML UDC PO PRN (14:55)
--- NOTE | 2022-11-17 15:06 | Anesthesiology Progress Note ---
Date of Service November 17, 2022 Anesthesia Post Procedure Vital Signs Vital Signs: Temp Pulse Pulse Resp BP Pulse Ox O2 Del Method 11/17/22 14:57 36.4 C L 80 16 130/73 96 Room Air 11/17/22 14:35 82 18 127/67 98 Room Air 11/17/22 14:25 36.3 C L 89 17 127/90 96 Nasal Cannula 11/17/22 14:15 86 16 129/64 96 Room Air 11/17/22 14:05 78 17 125/69 98 Oxymask 11/17/22 13:55 81 24 136/74 99 Oxymask 11/17/22 13:45 76 20 131/74 98 Oxymask 11/17/22 13:35 78 20 133/73 98 Oxymask 11/17/22 13:27 36.0 C L 77 20 135/77 96 Oxymask 11/17/22 07:52 36.5 C 69 18 134/71 96 Room Air O2 Flow Rate 11/17/22 14:57 11/17/22 14:35 2 11/17/22 14:25 2 11/17/22 14:15 11/17/22 14:05 4 11/17/22 13:55 4 11/17/22 13:45 4 11/17/22 13:35 6 11/17/22 13:27 6 11/17/22 07:52 Pain Intensity Left Shoulder: Pain Intensity: 8 Transfer of Care Handoff Completed per policy Notes Mental Status: alert / awake / arousable and participated in evaluation Patient Amnestic to Procedure: Yes Nausea / Vomiting: adequately controlled Pain: adequately controlled Airway Patency, RR, SpO2: stable & adequate BP & HR: stable & adequate Hydration State: stable & adequate Anesthetic Complications: no major complications apparent
[2022-11-17] MEDS: ACETAMINOPHEN 500 MG TAB PO SCH ×2 (16:33→22:21)
[2022-11-17] MEDS: SODIUM CHLORIDE 0.9% 1000ML 1,000 ML IV SCH (16:34)
--- NOTE | 2022-11-17 17:20 | Hospitalist Consultation ---
Date of Consultation November 17, 2022 Assessment & Plan (1) Status post reverse arthroplasty of left shoulder: Post op day 0. Post op Ancef x 2 bags. Pain medications per ortho. Tylenol 100mg PO q8 nancy. Dilaudid 2mg PO q6h prn. Check CBC and BMP in AM. Paresthesias and decreased/altered sensation of ventral aspect of 1st and 2nd fingers: follow clinically. Mild lightheadedness; monitor clinically. (2) PMR (polymyalgia rheumatica): On chronic prednisone 5mg daily as outpatient. Reportedly has stopped taking for 2 weeks as instructed by [facility] physician. 11/10/22 PCP note, patient is supposed to be taking. Per the dosage and 2 weeks of not taking, will resume prednisone at 5mg on 11/18 as opposed to stress dosing. Will update med rec at discharge. Patient received dexamethasone 8mg PO pre operatively. VSS. BP 118/74. (3) Prostate cancer: Also has BPH. Continue home finasteride. Also possible on terazosin as outpatient, rx'd by [facility]. (4) Chronic kidney disease: Stage 3a. Cr 1.3, baseline 1.2. Check BMP in AM. (5) Acid reflux: Continue home equivalent PPI. Protonix 40mg PO BID. (6) Hypertension: Not on antihypertensives. BPs acceptable. 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 Defer repeating lipid panel at this time as it would not exchange teller. (8) Prediabetes: A1c 5/9 on 10/29/22. Continue lifestyle modifications. (9) Coronary artery disease: Continue home baby ASA. (10) Anxiety: Not on medication. Plan Regular diet. NSS 100mL/hr. DVT ppx per ortho. SCDs. Full code. Med surg. Supervising Physician Co-Signing Physician Notes Patient seen and examined, chart reviewed, case discussed with Carroll HOLMAN MD and I agree with the assessment and plan as above except as otherwise noted Labs and images reviewed Germán is an 79-year-old male who presented for reverse total left arthroplasty for rotator cuff tear. He has a primary cluster of hypertension hyperlipidemia, COPD, CAD s/p stenting, anxiety, GERD, and PMR who was seen in the last month for multiple rib fractures, forehead contusion, left pneumothorax after a fall down 15 stairs with retrograde amnesia subsequently transferred to [facility]. At bedside assessment patient feels well. Continues to have some numbness and tingling in his left first and second digit, although sensation is intact to soft touch in the hand. Radial pulses intact, finger flexion is intact. Surgical drain is in place with serosanguineous material, arm is resting comfortably in a sling. Lungs are clear, heart rate is regular. There is recommendations above, continue twice daily PPI for at least 4 weeks given history of GERD and epigastric pain. Ambulation, DVT prophylaxis, pain control per primary team. Agree with recommendations and management above. Discussed plan of care with patient's son Skip by phone who is in agreeable to plan, no additional concerns History of Present Illness Reason for Consultation: postop chronic condition management Requesting Physician: James Gibson MD Attending Physician: Saurav Vega MD History of Present Illness 81 y/o male w/ PMHs of HTN, HLD, COPD, CAD s/p stents, anxiety, prostate cancer, GERD, and polymyalgia rheumatica who is s/p reverse left total shoulder arthroplasty and biceps tenodesis tenosynovectomy, post op day 0. EBL was 100mL. Hospitalist service has been consulted for management of chronic conditions and medications. Patient currently denies pain. He notes numbness/tingling at the ventral aspect of his left first and second fingers. He has mild woozy sensation. He denies having fever/chills, chest pain, SOB, abd pain, N/V, or urinary symptoms. Last BM was this morning. He has just completed dinner. He quit tobacco 40 years ago. Etoh use is 1 beer a week. Patient is on chronic prednisone 5mg daily for PMR. He notes that he has not taken it in the last 2 week as instructed [facility] ([facility] Lenny Gutierrez) for abdominal upset. Patient's son (Skip: [phone]) at bedside and assisted in providing the history. Allergies Allergy/AdvReac Type Severity Reaction Status Date / Time ezetimibe AdvReac Unknown MYOPATHY Verified 11/17/22 07:47 Qibkoyl-QXL-MdO Reductase AdvReac Unknown MYOPATHY Verified 11/17/22 07:47 Inhibitor [Wkhnmdc-Paf-Xea Reductase Inhibitor] Home Medications Medication Instructions Recorded Confirmed Type aspirin 81 mg tablet,delayed 81 mg PO HS 11/24/18 11/17/22 History release vitamin B complex 1 tab PO QAM 11/24/18 11/17/22 History lansoprazole 30 mg capsule,delayed 30 mg PO BID 08/27/19 11/17/22 History release nitroglycerin 0.4 mg sublingual 0.4 mg sublingual UD PRN Chest Pain 03/21/20 11/17/22 History tablet (Nitrostat) docusate sodium 100 mg capsule 100 mg PO BID 08/26/22 11/17/22 History finasteride 5 mg tablet 5 mg PO BID 08/26/22 11/17/22 History acetaminophen 650 mg 650 mg PO Q8H PRN Pain 10/27/22 11/17/22 History tablet,extended release fluticasone propionate 50 2 sprays intranasal QAM PRN 10/27/22 11/17/22 History mcg/actuation nasal Congestion spray,suspension (Flonase Allergy Relief) Patient History Medical History Acid reflux Anxiety Chronic back pain Chronic kidney disease Chronic obstructive pulmonary disease Coronary artery disease JAZMÍN x1 to DI, JAZMÍN x1 to OM (2009) per available records 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 Dyslipidemia Elevated PSA Heart attack NSTEMI (2009) > stents x2 History of prostate cancer History of skin cancer s/p excision (left thumb) Hx of fall 09/2022, fell down flight down stairs, "broke some ribs, tore some tendons" Hx of pneumothorax Per patient, told it was "very small" and "would heal on its own" Hypertension Prediabetes Surgical History H/O cardiac catheterization 2009 ([facility] JAZMÍN x2 per records 2013 ([facility]) - widely patent stents, nonocclusive CAD History of bronchoscopy Per records, pt unaware History of colonoscopy History of esophagogastroduodenoscopy (EGD) History of knee surgery Right per records (pt denies) History of tonsillectomy S/P cholecystectomy Family History Father Myocardial infarction Unknown ASCVD (arteriosclerotic cardiovascular disease) Aunt Breast cancer Brother Myocardial infarction Denies family history of Ovarian cancer Prostate cancer Colorectal cancer Social History (Updated 11/17/22 @ 18:53 by Rafa Holamn MD) Smoking Status: Former smoker Tobacco Type: Cigarettes Smoking End Date: Quit 40 years ago; Second Hand Exposure: No; Do You Dip or Chew Tobacco: No (Hx-quit 30 years ago); Tobacco Cessation Education Requested by Patient: No Hx Alcohol Use: Yes Alcohol type: beer Alcohol Intake Frequency: 2-4 x/Month Alcohol Intake Frequency Comment: 1 beer a week Hx Substance Use: No Preferred Language: Bulgarian Communication Ability: Effective Visual Impairment: Diminished Hearing Ability: Use of Hearing Aid Vice President Pharmacy Required: No Beliefs That Will Affect Care: None marital status: / Current Living Situation: Family and Other Current Living Situation Comment: son currently staying w/pt. current occupational status: retired How many Children do You have: 2 Other Information That Helps Us Care for You: No Feels Safe at Home: Yes Safety Concerns: Feels Safe At This Time Childhood Exposure to Second-Hand Smoke: Yes caffeine: Yes Dental Care, Regularly: No Physical Activity Frequency: 1-2 Times per Week Physical Activity Frequency Comment: swimming Seatbelt Use: always Sunscreen Use: Yes Assistive Devices: Glasses and Hearing Aid - Left Review of Systems Review of Systems: All systems reviewed & are unremarkable except as noted in HPI & below Gastrointestinal: + mild reflux symptoms Physical Exam Physical Exam: General: Grossly A&O. NAD. Cooperative. Conversational. Mild hard of hearing. HEENT: Atraumatic, normocephalic. EOMI. Pulm: CTAB. -wheezes, -rales, -rhonchi. No respiratory distress. Cardiac: RRR, -mrg. Radial pulses intact and symmetrical. No LE edema. Abdominal: Nontender, nondistended, soft. Msk: L shoulder sling. Neuro: Bilat investigation division lieutenant strength intact. Decreased/altered sensation of left ventral aspect of 1st and 2nd fingers. CN grossly intact. Results & Data Results & Data Vital Signs (Past 12 Hours) Vital Signs Temp Pulse Pulse Resp BP Pulse Ox O2 Del Method 11/17/22 16:07 82 16 115/72 94 Room Air 11/17/22 15:17 95 H 16 151/86 H 96 Room Air 11/17/22 14:57 36.4 C L 80 16 130/73 96 Room Air 11/17/22 14:35 82 18 127/67 98 Room Air 11/17/22 14:25 36.3 C L 89 17 127/90 96 Nasal Cannula 11/17/22 14:15 86 16 129/64 96 Room Air 11/17/22 14:05 78 17 125/69 98 Oxymask 11/17/22 13:55 81 24 136/74 99 Oxymask 11/17/22 13:45 76 20 131/74 98 Oxymask 11/17/22 13:35 78 20 133/73 98 Oxymask 11/17/22 13:27 36.0 C L 77 20 135/77 96 Oxymask 11/17/22 07:52 36.5 C 69 18 134/71 96 Room Air O2 Flow Rate 11/17/22 16:07 11/17/22 15:17 11/17/22 14:57 11/17/22 14:35 2 11/17/22 14:25 2 11/17/22 14:15 11/17/22 14:05 4 11/17/22 13:55 4 11/17/22 13:45 4 11/17/22 13:35 6 11/17/22 13:27 6 11/17/22 07:52 Laboratory Results Intake and Output 11/17/22 11/17/22 11/17/22 06:59 14:59 22:59 Intake Total 1999 / 0 200 / 2200 Output Total 100 / 100 Balance 1900 / 2100 200 / 2100 Intake: IV 0 / 200 200 / 200 Lactated Ringer's 1,000 ml @ 15 0 / 0 mls/hr IV .Q24H NANCY Rx#: [id number] Tranexamic Acid / 0.7% NaCl 1, 200 / 200 000 mg In 100 ml @ 600 mls/hr IV TODAY@0600 NANCY Rx#:[id number] IV Perioperative 1999 Output: Estimated Blood Loss 100 / 100 Other: Weight 80 kg Weight Measurement Method Standing Scale Patient Weight 11/18/22 06:59 Weight 80 kg Diagnostic Findings Shoulder X-Ray 11/17/22 13:27 XR shoulder LT min 2V routine CLINICAL HISTORY: Post shoulder surgery COMPARISON STUDY: None. FINDINGS: Status post a reverse left total shoulder arthroplasty. The hardware is intact. No acute fracture or dislocation. Skin silvano and surgical drains are in place. IMPRESSION: Status post reverse left total shoulder arthroplasty. No evidence for hardware complication. ACT 112: Negative or not required by law. Electronically signed by: Blas Knight M.D. 11/17/2022 2:02 PM ECG Additional Comments: No ecg obtained this admission. 10/29/22 ecg w/ bifascicular block. Resident Activity Tracking Resident Involvement: Resident Care Provided Care Provided: Adult Hospital Medicine (9) Coronary artery disease Associated angina: with unstable angina Coronary Disease-Associated Artery/Lesion type: [place] artery [place] vs. transplanted heart: [place] heart Qualified Code(s): I25.110 - Atherosclerotic heart disease of [place] coronary artery with unstable angina pectoris
[2022-11-17] MEDS: ceFAZolin 2000MG 2,000 MG/15 ML SYR IV SCH (20:52)
[2022-11-17] MEDS: DOCUSATE SODIUM 100 MG CAP PO SCH (20:53)
[2022-11-17] MEDS: PANTOprazole 40 MG TAB PO SCH (20:54)
[2022-11-17] MEDS ORDERED: SENNA 8.6 MG TAB PO SCH (21:00)
[2022-11-17] MEDS ORDERED: DOCUSATE SODIUM 100 MG CAP PO SCH (21:00)
[2022-11-17] MEDS: POLYETHYLENE (MIRALAX) 17 GM PACK PO SCH (21:04)
[2022-11-18] MEDS ORDERED: SIMETHICONE 80 MG CHEW PO ONE (00:15)
[2022-11-18] MEDS: SODIUM CHLORIDE 0.9% 1000ML 1,000 ML IV SCH (01:33)
[2022-11-18] MEDS: ceFAZolin 2000MG 2,000 MG/15 ML SYR IV SCH (03:36)
[2022-11-18 05:56] LABS: Basophils # (auto) 0.02 K/uL (0-0.2); Basophils % (auto) 0.2 %; Eosinophils # (auto) 0.03 K/uL (0-0.50); Eosinophils % (auto) 0.2 %; Hematocrit (blood only) 35.4 % (42.0-52.0); Hemoglobin 11.9 g/dl (14.0-18.0); Immature Granulocytes # (auto) 0.05 K/uL (0.01-0.20); Immature Granulocytes % (auto) 0.4 %; Lymphocytes # (auto) 1.52 K/uL (1.2-3.4); Lymphocytes % (auto) 12.5 %; Mean Corpuscular Hemoglobin 29.3 pg (25.0-34.0); Mean Corpuscular Hgb Conc 33.6 g/dL (32.0-36.0); Mean Corpuscular Volume 87.2 fL (80.0-100.0); Mean Platelet Volume 9.6 fL (9.4-12.4); Monocytes # (auto) 0.86 K/uL (0.11-0.59); Monocytes % (auto) 7.1 %; Neutrophils # (auto) 9.67 K/uL (1.40-6.50); Neutrophils % (auto) 79.6 %; Platelet Count 315 K/uL (130-400); RDW Coefficient of Variation 12.4 % (11.5-14.5); RDW Standard Deviation 40.1 fL (36.4-46.3); Red Blood Count 4.06 M/uL (4.70-6.10); White Blood Count 12.15 K/ul (4.8-10.8)
[2022-11-18 06:13] LABS: BUN Creatinine Ratio 13.9 (10-20); Calcium 9.2 mg/dl (8.5-10.1); Creatinine Clr Calc Pharmacy 57.3 ml/min; Est GFR (African American) 79.9 ml/min; Est GFR (Non-African American) 68.9 ml/min
[2022-11-18] MEDS: ACETAMINOPHEN 500 MG TAB PO SCH (06:30)
--- NOTE | 2022-11-18 07:38 | Orthopedic Progress Note ---
Date of Service November 18, 2022 Assessment & Plan (1) Status post reverse arthroplasty of left shoulder: Plan: Postop day #1 left reverse -PT/OT: Patient may do elbow/wrist/hand motion, shrugs, pendulums. No formal therapy on her shoulder at this time. -AM labs: Hemoglobin 11.9 from 14.5 preop. Acute blood loss anemia due to surgical loss versus dilutional. Mild leukocytosis likely reactive due to surgical stress and perioperative steroids. -DVT prophylaxis: SCDs, aspirin daily -Pain management as written -Discharge planning: Plan on discharge home. We will plan on discharge home when stable, possibly later today. Admission and Anticipated Discharge Date Admission Date: November 17, 2022 Subjective Patient is postop day #1 left reverse total shoulder arthroplasty. He is doing well this morning. No pain. No other complaints. Denies chest pain, shortness of breath, dizziness/lightheadedness, nausea/vomiting/diarrhea. Review of Systems Review of Systems: All systems reviewed & are unremarkable except as noted in Subjective Physical Exam Physical Exam: Left shoulder: Sling in place. Dressing is clean, dry, intact. Fingers are mobile. Able to do thumbs up. Some difficulty extending his wrist. Able to flex his elbow. Still with numbness into his thumb and index finger likely residual from the nerve block. Results & Data Vital Signs (Past 12 Hours) Vital Signs Temp Pulse Resp BP Pulse Ox O2 Del Method 11/18/22 07:00 36.5 C 65 18 167/87 H 96 Room Air 11/18/22 03:05 36.8 C 68 18 124/75 96 Room Air 11/17/22 22:59 36.5 C 71 18 125/74 96 Room Air Laboratory Results Lab Results 11/17/22 11/18/22 11/18/22 Range/Units Unknown 05:30 05:30 WBC 12.15 H (4.8-10.8) K/ul RBC 4.06 L (4.70-6.10) M/uL Hgb 11.9 L (14.0-18.0) g/dl Hct 35.4 L (42.0-52.0) % MCV 87.2 (80.0-100.0) fL MCH 29.3 (25.0-34.0) pg MCHC 33.6 (32.0-36.0) g/dL RDW Std Deviation 40.1 (36.4-46.3) fL RDW Coeff of Josefina 12.4 (11.5-14.5) % Plt Count 315 (130-400) K/uL MPV 9.6 (9.4-12.4) fL Immature Gran % (Auto) 0.4 % Neut % (Auto) 79.6 % Lymph % (Auto) 12.5 % [place] % (Auto) 7.1 % Eos % (Auto) 0.2 % Baso % (Auto) 0.2 % Neut # (Auto) 9.67 H (1.40-6.50) K/uL Lymph # (Auto) 1.52 (1.2-3.4) K/uL [place] # (Auto) 0.86 H (0.11-0.59) K/uL Eos # (Auto) 0.03 (0-0.50) K/uL Baso # (Auto) 0.02 (0-0.2) K/uL Immature Gran # (Auto) 0.05 (0.01-0.20) K/uL Sodium 139 (136-145) mmol/L Potassium 4.0 (3.5-5.1) mmol/L Chloride 108 H (98-107) mmol/L Carbon Dioxide 23 (21-32) mmol/L Anion Gap 8 (3-11) BUN 14 (6-23) mg/dl Creatinine 1.01 (0.6-1.4) mg/dl Est Cr Clr Drug Dosing 57.3 ml/min Est GFR ( Amer) 79.9 ml/min Est GFR (Non-Af Amer) 68.9 ml/min BUN/Creatinine Ratio 13.9 (10-20) Glucose 103 H (70-99(Fasting)) mg/dl Calcium 9.2 (8.5-10.1) mg/dl SARS-CoV-2, RNA, NAAT NEGATIVE (NEGATIVE)
[2022-11-18] MEDS: POLYETHYLENE (MIRALAX) 17 GM PACK PO SCH (08:40)
[2022-11-18] MEDS: DOCUSATE SODIUM 100 MG CAP PO SCH (08:40)
[2022-11-18] MEDS: PANTOprazole 40 MG TAB PO SCH (08:40)
[2022-11-18] MEDS ORDERED: MULTIVITAMIN TAB PO SCH (09:00)
[2022-11-18] MEDS ORDERED: VITAMIN B COMPLEX TAB PO SCH (09:00)
[2022-11-18] MEDS ORDERED: FINASTERIDE 5 MG TAB PO SCH (09:00)
[2022-11-18] MEDS ORDERED: predniSONE 5 MG TAB PO SCH (09:00)
--- NOTE | 2022-11-18 11:45 | Hospitalist Progress Note ---
Date of Service November 18, 2022 Assessment & Plan (1) Status post reverse arthroplasty of left shoulder: Plan: Post op day #1 reverse arthroplasty left shoulder Post op Ancef x 2 bags. Pain medications per ortho. Tylenol 100mg PO q8 nancy. Dilaudid 2mg PO q6h prn. Reviewed CBC today - mild elevated WBC, likely reactive/surgical stress, or due to IV steroids with surgery. Mild drop in Hgb likely secondary to surgical loss and dilutional. Patient denies any hematochezia, melena, BRB FL or any other signs of bleeding. Paresthesias and decreased/altered sensation of ventral aspect of 1st and 2nd fingers: follow clinically, freely able to move all fingers with good capillary refil (2) PMR (polymyalgia rheumatica): Plan: On chronic prednisone 5mg daily as outpatient. Reportedly has stopped taking for 2 weeks as instructed by [facility] physician. 11/10/22 PCP note, patient is supposed to be taking. Per the dosage and 2 weeks of not taking, will resume prednisone at 5mg BID with food and advised to follow up with his communications senior associate (Patient received dexamethasone 8mg PO pre operatively) VSS. BP 118/74. (3) Prostate cancer: Plan: Also has BPH. Continue home finasteride. Also possible on terazosin as outpatient[facility]. (4) Chronic kidney disease: Plan: Stage 3a. Cr 1.3, baseline 1.2. Reviewed BMP this AM - stable (5) Acid reflux: Plan: Continue home equivalent PPI. Protonix 40mg PO BID. (6) Hypertension: Plan: Not on antihypertensives. BPs acceptable. (7) Dyslipidemia: Plan: Hx of stain and Zetia myopathy. Defer repeating lipid panel at this time as it would not ticket dispenser changer. (8) Prediabetes: Plan: A1c 5/9 on 10/29/22. Continue lifestyle modifications. (9) Coronary artery disease: Plan: Continue home baby ASA. (10) Anxiety: Plan: Not on medication. Plan Regular diet. NSS 100mL/hr. DVT ppx per ortho. SCDs. Full code. Med surg. Stable for discharge from medical standpoint Follow up with rheumatology, PCP and [facility] Admission and Anticipated Discharge Date Admission Date: November 17, 2022 Subjective Patient is postop day #1 reverse total shoulder arthroplasty Left. EBL 100, drain 45ml. He is feeling well this morning. He denies any current chest pain or dyspnea. He denies any abdominal pain or nausea or vomiting. VSS and patientis afebrile. He had a slight increase in WBC may be reactive/surgical stress, or due to IV steroids with surgery. Mild drop in Hgb likely secondary to surgical loss and dilutional. Patient denies any hematochezia, melena, BRB FL or any other signs of bleeding. Review of Systems Review of Systems: Denies any CP, SOB, Dyspnea. He admits to hot flashes at night x many years and has a follow up with his PCP. He denies any unintentional weight loss. All other ROS negative unless stated above. Physical Exam Constitutional: WD/WN, vitals as above Neck: trachea midline, no thyromegaly Respiratory: normal respiratory effort, lungs clear to auscultation Cardiovascular: RRR, no murmur, no edema Gastrointestinal (Abdomen): normal bowel sounds, soft, nontender, no hepatosplenomegaly Musculoskeletal: Left shoulder surgical dressing clean and intact, drain n place. Still with some numbness into thumb and index finger, good capillary refill and all fingers with normal ROM Results & Data Results & Data Vital Signs (Past 12 Hours) Vital Signs Temp Pulse Resp BP Pulse Ox O2 Del Method 11/18/22 09:31 Room Air 11/18/22 07:00 36.5 C 65 18 167/87 H 96 Room Air 11/18/22 03:05 36.8 C 68 18 124/75 96 Room Air Laboratory Results Abnormal lab results 11/18/22 11/18/22 Range/Units 05:30 05:30 WBC 12.15 H (4.8-10.8) K/ul RBC 4.06 L (4.70-6.10) M/uL Hgb 11.9 L (14.0-18.0) g/dl Hct 35.4 L (42.0-52.0) % Neut # (Auto) 9.67 H (1.40-6.50) K/uL [place] # (Auto) 0.86 H (0.11-0.59) K/uL Chloride 108 H (98-107) mmol/L Glucose 103 H (70-99(Fasting)) mg/dl PG Care Time/CCT Total # of Minutes Spent Total Time Spent with Patient: Total time spent is greater than 50% in coordination of care (as documented) at patient's floor/unit and/or counseling patient: Coding Level of Care Code 52784 SUB INP/OBS CARE MIN Diagnoses Status post reverse arthroplasty of left shoulder Z96.612 PMR (polymyalgia rheumatica) M35.3 Prostate cancer C61 Chronic kidney disease N18.9 Acid reflux K21.9 Hypertension I10 Dyslipidemia E78.5 Prediabetes R73.03 Coronary artery disease I25.110 Associated angina: with unstable angina Coronary Disease-Associated Artery/Lesion type: [place] artery [place] vs. transplanted heart: [place] heart Anxiety F41.9 (9) Coronary artery disease Associated angina: with unstable angina Coronary Disease-Associated Artery/Lesion type: [place] artery [place] vs. transplanted heart: [place] heart Qualified Code(s): I25.110 - Atherosclerotic heart disease of [place] coronary artery with unstable angina pectoris
[2022-11-18] MEDS ORDERED: ASPIRIN 81 MG ECTAB PO SCH (21:00)
--- NOTE | 2022-11-19 10:29 | Discharge Summary ---
Date of Service November 19, 2022 Admission HPI Per Admitting Provider 81yo male with PMHx significant for COPD, CAD, hx of [place], pneumothorax who presents with ongoing left shoulder pain. Pain is interfering with his daily activity. He has failed conservative measures. Patient suffered a fall several weeks ago fracturing multiple ribs and injuring his shoulder, as well as suffering a pneumothorax. He would like to proceed with surgical intervention. Patient denies headaches, sweats, fevers, chills, double vision, blurred vision, cough, sore throat, dysphagia, chest pain, sob, wheezing, n/v/d/c, numbness, tingling, fatigue, urinary symptoms, mood disorders. ROS positive for left shou lder pain and stiffness. Admission Exam Per Admitting Provider Constitutional: well developed and well nourished; no acute distress Eyes: PERRL, conjunctivae normal, anicteric sclerae ENMT: external ear and nose normal, oropharynx normal Neck: trachea midline, no thyromegaly Respiratory: normal respiratory effort, lungs clear to auscultation Cardiovascular: RRR, no murmur, no edema Musculoskeletal: Left shoulder: positive impingement signs. Tenderness anterolateral acromion. Strength: 2/5 abduction, 4-/5 ER, 4/5 IR. Significant pain with passive and active ROM. FF to 45 degrees, abduction to 30 degrees actively, ER to 10 degrees. Skin: no rashes, warm and dry Neurologic: patellar DTR's 2+ bilat, sensation intact Psychiatric: A+Ox3, euthymic affect Principal Diagnosis Left shoulder rotator cuff arthropathy Discharge Exam Left shoulder: Sling in place. Dressing is clean, dry, intact. Fingers are mobile. Able to do thumbs up. Some difficulty extending his wrist. Able to flex his elbow. Still with numbness into his thumb and index finger likely residual from the nerve block. Constitutional well developed and well nourished; no acute distress Discharge Data Allergies Allergy/AdvReac Type Severity Reaction Status Date / Time ezetimibe AdvReac Unknown MYOPATHY Verified 11/17/22 07:47 Anpzgeh-TWH-YvV Reductase AdvReac Unknown MYOPATHY Verified 11/17/22 07:47 Inhibitor [Ooauzos-Vkw-Vlo Reductase Inhibitor] Consultations 11/15/22 11:08 Consult Hospitalist Routine Procedures Performed Operation Date: 11/17/22 09:55 Actual Procedures p Left Total Shoulder Arthroplasty Reverse(Left) - James Gibson MD Ordered Studies 11/17/22 05:00 US - OR guided needle placemen Routine Hospital Course (1) Status post reverse arthroplasty of left shoulder: Postop day #1 left reverse -PT/OT: Patient may do elbow/wrist/hand motion, shrugs, pendulums. No formal therapy on her shoulder at this time. -AM labs: Hemoglobin 11.9 from 14.5 preop. Acute blood loss anemia due to surgical loss versus dilutional. Mild leukocytosis likely reactive due to surgical stress and perioperative steroids. -DVT prophylaxis: SCDs, aspirin daily -Pain management as written -Discharge planning: Plan on discharge home. We will plan on discharge home when stable, possibly later today. Lab Results 11/17/22 11/18/22 11/18/22 Range/Units Unknown 05:30 05:30 WBC 12.15 H (4.8-10.8) K/ul RBC 4.06 L (4.70-6.10) M/uL Hgb 11.9 L (14.0-18.0) g/dl Hct 35.4 L (42.0-52.0) % MCV 87.2 (80.0-100.0) fL MCH 29.3 (25.0-34.0) pg MCHC 33.6 (32.0-36.0) g/dL RDW Std Deviation 40.1 (36.4-46.3) fL RDW Coeff of Josefina 12.4 (11.5-14.5) % Plt Count 315 (130-400) K/uL MPV 9.6 (9.4-12.4) fL Immature Gran % (Auto) 0.4 % Neut % (Auto) 79.6 % Lymph % (Auto) 12.5 % [place] % (Auto) 7.1 % Eos % (Auto) 0.2 % Baso % (Auto) 0.2 % Neut # (Auto) 9.67 H (1.40-6.50) K/uL Lymph # (Auto) 1.52 (1.2-3.4) K/uL [place] # (Auto) 0.86 H (0.11-0.59) K/uL Eos # (Auto) 0.03 (0-0.50) K/uL Baso # (Auto) 0.02 (0-0.2) K/uL Immature Gran # (Auto) 0.05 (0.01-0.20) K/uL Sodium 139 (136-145) mmol/L Potassium 4.0 (3.5-5.1) mmol/L Chloride 108 H (98-107) mmol/L Carbon Dioxide 23 (21-32) mmol/L Anion Gap 8 (3-11) BUN 14 (6-23) mg/dl Creatinine 1.01 (0.6-1.4) mg/dl Est Cr Clr Drug Dosing 57.3 ml/min Est GFR ( Amer) 79.9 ml/min Est GFR (Non-Af Amer) 68.9 ml/min BUN/Creatinine Ratio 13.9 (10-20) Glucose 103 H (70-99(Fasting)) mg/dl Calcium 9.2 (8.5-10.1) mg/dl SARS-CoV-2, RNA, NAAT NEGATIVE (NEGATIVE) Total Time Total Time Spent Total Time Spent (In Minutes): 20 Discharge Plan Discharge Items Patient Disposition: Home - Self-Care Reason For Visit: Left Shoulder Rotator Cuff Arthropathy Discharge Diagnosis: Left shoulder rotator cuff arthropathy Activity: Per Instructions section Non-emergency contact: Surgeon Call non-emergency contact if: you have any medication questions, your pain is not controlled, your pain is concerning for you, you have a fever, your temperature is above 101, your wound has increased redness and your wound has increased drainage Follow-up/Referrals: Saurav Lucero MD [Primary Care Provider] - James Gibson MD [Surgeon] - (f/u with Dr. Gibson or his PA Edward in 2 weeks for your post-operative check up) Diet: Regular Addtl Attending Provider Instructions: ACTIVITY RECOMMENDATIONS: SELF CARE INSTRUCTIONS AFTER TOTAL SHOULDER ARTHROPLASTY REVERSE A. You may do daily exercises as taught in physical therapy while in hospital. No lifting with the operative arm. B. You are to wear your sling/immobilizer at all times EXCEPT when performing your daily exercises and for hygiene purposes. C. You may perform dry, daily dressing changes. Please keep your incision covered. You may shower 48 hours after surgery. Do not apply soap or any ointment/lotions directly over incision. Do not soak incision in bath tub/swimming pool. D. You may use ice as needed to operative shoulder. SPECIAL CARE INSTRUCTIONS: VERY IMPORTANT TO READ AND REVIEW A. There are a few signs you need to watch for after you are home. Call [facility] at [phone] if you experience any of the followin. Increased severe shoulder pain. Some pain is expected especially when you exercise. 2. Increased swelling in you shoulder or arm; pain or swelling in either upper extremity. 3. Any fluid drainage from the incision. 4. Shortness of breath or chest pain. B. Please call [facility] at [phone] if you have any questions or concerns about your operation or recovery. C. Call your physician if: 1. Temperature is greater than 101 degrees (F). 2. Pain is not relieved by prescribed pain medications. 3. Increase drainage or redness from incision. 4. Unanswered questions or concerns. FOLLOW UP VISIT: Please call [facility] at [phone] to schedule a follow up appointment with Dr. Gibson or his PA in 12-14 days from your surgery date. Addtl Studio Operations Manager Provider Instructions: Please restart Prednisone 5mg one pill 2 times per day WITH FOOD. Rx sent to [facility] on [address]. Gave enough for 1 month. Will need to follow up with lube worker for further maintenance of this medication. Pending Studies at Discharge: No Stand-Alone Forms: [facility] [employer], Smoking Cessation Medications and DC Order Prescriptions: New acetaminophen [Tylenol Extra Strength] 500 mg Tablet 1,000 mg PO Q8 Qty: 60 0RF hydromorphone [Dilaudid] 2 mg Tablet 2 mg PO Q6H PRN (Reason: pain) Qty: 30 0RF Rx Instructions: Ongoing therapy, Dr. Gibson supervising Continued finasteride 5 mg tablet 5 mg PO BID docusate sodium 100 mg capsule 100 mg PO BID aspirin 81 mg Tablet,Delayed Release (Dr/Ec) 81 mg PO HS vitamin B complex Tablet 1 tab PO QAM lansoprazole 30 mg capsule,delayed release(DR/EC) 30 mg PO BID nitroglycerin [Nitrostat] 0.4 mg tablet, sublingual 0.4 mg sublingual UD PRN (Reason: Chest Pain) fluticasone propionate [Flonase Allergy Relief] 50 mcg/actuation spray,suspension 2 sprays INTNAS QAM PRN (Reason: Congestion) Rx Instructions: administer into each nostril Changed prednisone 5 mg capsule 5 mg PO BID Qty: 60 0RF Rx Instructions: Take one BID with food Discontinued acetaminophen 650 mg Tablet Extended Release 650 mg PO Q8H PRN (Reason: Pain) Patient Comments: none for 1 week due to making him nauseous. Discharge Orders: Discharge Order (Routine); Ordered 11/18/22 Ordered By: Yenni Dangelo/Other Patient Handouts: Benign Prostatic Hyperplasia Admission Data Admit Date/Time: 11/17/22 13:27 Attending Provider: Jmaes Gibson Admit Provider: James Gibson Primary Care Provider: Saurav Lucero Other Providers: Favio Santana Thomas E. Other Interventions: Discharge Summary Assessment (RN) Last Done: 11/18/22 12:26
== END 2022-11-18 13:42 | disposition home or self-care (01) | DRG 483 ==
LOC: ASU 07:06 → 3E 13:27 → OBSVTOIN 13:27 → INTOOBSV 13:27

== ENCOUNTER 2024-03-07 16:38 | Inpatient (IN) ==
--- NOTE | 2024-03-07 17:19 | Emergency Department Note ---
Impression & Plan Symptomatic bradycardia, PMR (polymyalgia rheumatica), Chronic steroid use, Confusion ED Provider Note NAME: TANI BHATIA AGE: 83 SEX: M : 1940 ARRIVES VIA: Walk-In INFORMANT: Patient ED PROVIDER(S): Forest Calhoun MD CHIEF COMPLAINT: Confusion, weakness, dizziness, nausea. PLAN: Disposition: Admit MEDICAL DECISION MAKING: The patient is a pleasant 83-year-old gentleman with a past medical history of acid reflux, hypertension, hyperlipidemia, PMR on chronic steroids per records who presents to the emergency department via walk-in accompanied by son for evaluation of symptoms of confusion that have been ongoing throughout today with symptoms of nausea and lightheadedness. Patient's son reports that he is with his father daily and he was accompanying him on travels today for work which is not unusual. He denies having noticed any symptoms of dementia prior to today where he has had short-term memory issues all associated with his other symptoms of dizziness and nausea. Prior to today denying recent fevers, chills, cough, congestion. The patient is a poor historian and reports he is not on any medications which is contrary to his [facility]. Patient's son also acknowledges that he knows he is on medications but is not clear the details. In particular, the patient is not familiar with taking steroids or what a steroid is or what it is for. Thus, the patient's son agrees that it is unclear when or if he stopped taking this. Of note, the patient did arrive to emergency department during time of high volume, acuity and prolonged emergency department waiting times. After a short time in his room I was alerted by nursing staff of the patient's change in his clinical status since he arrived. The patient's son also had stepped out to ask for help because he noticed the emission specialist was beeping and it appeared that there was no longer signal. This correlated with telemetry however printout which demonstrated severe sinus bradycardia with at least 1 episode of complete heart block lasting approximately 10 seconds. Patient did not lose consciousness but appeared ill, flushed and pale. Upon reassessment of his blood pressure this remained normal to slightly hypertensive. Patient exhibits mild confusion and is forgetful of his symptoms even after they had occurred minutes prior to denying any symptoms. Following this more severe episode of near syncope the patient remained alert and oriented though confused from his baseline. Heart rate remained low in the mid 30s without evidence of high-grade block subsequently. EKG captured severe sinus bradycardia down to the 30s without evidence of high- grade block or overt acute ischemia. Of note, a left anterior fascicular block is noted in addition to the patient's history of a right bundle branch block. Chest x-ray was negative for acute cardiopulmonary process per my preliminary independent interpretation. WBC and platelets within normal limits. H/H similar to prior values. Platelets within normal limits. Chemistry without metabolic acidosis. Electrolytes LFTs without significant abnormality.-Troponin was 8.1, within normal limits. Lipase is normal. TSH within limits. Random cortisol was 14, technically within normal limits however given the patient's distress this raises suspicion for underlying adrenal insufficiency particularly given the context of the patient's chronic steroid use and whether or not he has been compliant with his unclear. UA without convincing evidence infection. Lyme screen was negative. CT of the head and CT of the head and neck were performed. Chronic cerebrovascular findings are noted including 50% stenosis of the proximal left ICA and 40% stenosis of the proximal right ICA as well as chronic occlusion of right vertebral artery with reconstitution at the C5 level. There is moderate to severe stenosis within the right vertebral artery which is slightly increased in degree compared to 2017. Given the persistence of the patient's bradycardia in the 30s with change in mental status suspect patient may be symptomatic related to this. He was given 1 mg dose of atropine with good effect and subsequent fluid improved rate into the 50s-60s. Patient was also given 100 mg of hydrocortisone for stress dose for possible underlying adrenal insufficiency per discussion above. Patient and son at bedside agree with plan for admission for further management. Case was discussed with [place]. Walsh, [facility] [place], who will evaluate the patient for admission. Case was also discussed with Dr. Huff, [place] cardiology on-call. Appreciate consultation recommendations and agrees with management above. He will be available for inpatient team consultation. Further management per admitting team. Triage Nursing notes reviewed and agree them. Prior/external medical records reviewed Vital Signs: reviewed Differential diagnosis: Infection, hypoglycemia, electrolyte abnormalities, overdose, toxicologic, cardiac sources, intracerebral event, neurologic, trauma, as well as other pathologies. ER treatment provided: See below. Diagnostics interpreted by me: ECG 1643: Sinus bradycardia with first-degree AV block, 55 bpm, right bundle branch block, no overt ST elevation or depression, QTc 401, QRS 138. ECG 1714: Marked sinus bradycardia with first-degree AV block, 35 bpm, right bundle branch block, left anterior fascicular block, no overt ST elevation or depression, QTc 358, QRS 140. Cardiac Monitoring: An order for continuous cardiac monitoring was placed and demonstrated marked sinus bradycardia in the 30s with brief episode of complete heart block <10s. Laboratory studies: See below Imaging studies: See below Consultation(s): Dr. Huff, [place] cardiology on-call. Dr. Walsh, [facility] [place] HPI: The patient is a pleasant 83-year-old gentleman with a past medical history of acid reflux, hypertension, hyperlipidemia, PMR on chronic steroids per records who presents to the emergency department via walk-in accompanied by son for evaluation of symptoms of confusion that have been ongoing throughout today with symptoms of nausea and lightheadedness. Patient's son reports that he is with his father daily and he was accompanying him on travels today for work which is not unusual. He denies having noticed any symptoms of dementia prior to today where he has had short-term memory issues all associated with his other symptoms of dizziness and nausea. Prior to today denying recent fevers, chills, cough, congestion. The patient is a poor historian and reports he is not on any medications which is contrary to his [facility] record. Patient's son also acknowledges that he knows he is on medications but is not clear the details. In particular, the patient is not familiar with taking steroids or what a steroid is or what it is for. Thus, the patient's son agrees that it is unclear when or if he stopped taking this. ROS: See above HPI for pertinent positives & negatives. A total of 10 systems reviewed and were otherwise negative. VITALS:See Below PHYSICAL EXAMINATION: GENERAL: Awake, alert, uncomfortable-appearing, in no distress HENT: Normocephalic, atraumatic. Oropharynx with dry mucous membranes and otherwise unremarkable. . EYES: Normal conjunctiva. Sclera non-icteric. NECK: Supple. No nuchal rigidity. FROM. No JVD. RESPIRATORY: Clear to auscultation. CARDIAC: Bradycardic rate, normal rhythm. Extremities warm and well perfused. Pulses equal. ABDOMEN: Soft, non-distended. No tenderness to palpation. No rebound or guarding. No masses. MUSCULOSKELETAL: Chest examination reveals no tenderness. The back is symmetrical on inspection without obvious abnormality. There is no CVA tenderness to palpation. No joint edema. LOWER EXTREMITIES: Calves are equal size bilaterally and non-tender. No edema. No discoloration. NEURO: Mild confusion. Alert to self and place. Confused to situation. No focal sensory or motor deficits noted. 5/5 strength and SILT x 4 extremities. Intact finger-nose. SKIN: No rash or jaundice noted. ED COURSE: Critical Care: I have personally spent greater than 35 minutes of critical care time in the direct management of this patient. This includes bedside care, interpretation of diagnostic studies, and testing, discussion with consultants, patient, and family members, and other required patient management activities. This 35 minutes is in excess of all separately billable procedures. Forest Calhoun MD Past Med/Surg History Problem List (Updated 03/07/24 @ 23:07 by Forest Calhoun MD) Confusion (Acute) Symptomatic bradycardia (Acute) Obstructive sleep apnea History of left shoulder replacement Prediabetes Chronic kidney disease Status post reverse arthroplasty of left shoulder Full thickness rotator cuff tear Hot flashes Chronic steroid use (Acute) Encounter for pre-operative examination Abdominal pain PMR (polymyalgia rheumatica) (Acute) Voiding dysfunction Chronic abdominal pain Allergic sinusitis Mesenteric lymphadenopathy Abdominal pain hx-"feel it was due to his pain medication, has gotten better" Prostate cancer Right bundle branch block GERD (gastroesophageal reflux disease) BPH (benign prostatic hyperplasia) Elevated PSA Hypertension Dyslipidemia Coronary artery disease JAZMÍN x1 to DI, JAZMÍN x1 to OM (2009) per available records Anxiety Acid reflux Chronic back pain (Chronic) Medical History History of skin cancer s/p excision (left thumb) History of prostate cancer Hx of fall 09/2022, fell down flight down stairs, "broke some ribs, tore some tendons" Hx of pneumothorax Per patient, told it was "very small" and "would heal on its own" Chronic obstructive pulmonary disease 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 Heart attack NSTEMI (2009) > stents x2 Surgical History History of esophagogastroduodenoscopy (EGD) History of tonsillectomy History of knee surgery Right per records (pt denies) History of colonoscopy History of bronchoscopy Per records, pt unaware S/P cholecystectomy H/O cardiac catheterization 2009 ([facility] JAZMÍN x2 per records 2013 ([facility]) - widely patent stents, nonocclusive CAD Family History Father Myocardial infarction Unknown ASCVD (arteriosclerotic cardiovascular disease) Aunt Breast cancer Brother Myocardial infarction Denies family history of Ovarian cancer Prostate cancer Colorectal cancer Social History Smoking Status: Former smoker Tobacco Type: Cigarettes Second Hand Exposure: No; Do You Dip or Chew Tobacco: No (Hx-quit 30 years ago); Hx Alcohol Use: Yes Alcohol type: beer Alcohol Intake Frequency: 2-4 x/Month Alcohol Intake Frequency Comment: 1 beer a week Hx Substance Use: No Preferred Language: Slovenian Communication Ability: Effective Visual Impairment: Diminished Hearing Ability: Use of Hearing Aid Hat Presser Required: No Beliefs That Will Affect Care: None marital status: / Current Living Situation: Family Current Living Situation Comment: lives with son current occupational status: retired How many Children do You have: 2 Other Information That Helps Us Care for You: No Feels Safe at Home: Yes Safety Concerns: Feels Safe At This Time Childhood Exposure to Second-Hand Smoke: Yes Diet: regular caffeine: Yes Dental Care, Regularly: No Physical Activity Frequency: 1-2 Times per Week Physical Activity Frequency Comment: swimming Seatbelt Use: always Sunscreen Use: Yes Assistive Devices: None Allergies Allergies Allergy/AdvReac Type Severity Reaction Status Date / Time colestipol [From Colestid] Allergy Unknown ON [facility] Verified 03/07/24 20:18 LIST fluvastatin [From Lescol] Allergy Unknown ON [facility] Verified 03/07/24 20:18 LIST lovastatin [From Mevacor] Allergy Unknown ON [facility] Verified 03/07/24 20:18 LIST niacin Allergy Unknown ON [facility] Verified 03/07/24 20:18 [From Niaspan LIST Extended-Release] omeprazole [From Prilosec] Allergy Unknown ON [facility] Verified 03/07/24 20:18 LIST oxycodone Allergy Unknown ON [facility] Verified 03/07/24 20:18 LIST pantoprazole Allergy Unknown ON [facility] Verified 03/07/24 20:18 LIST pravastatin [From Pravachol] Allergy Unknown ON [facility] Verified 03/07/24 20:18 LIST rosuvastatin [From Crestor] Allergy Unknown ON [facility] Verified 03/07/24 20:18 LIST simvastatin [From Zocor] Allergy Unknown ON [facility] Verified 03/07/24 20:18 LIST ezetimibe AdvReac Intermediate MYOPATHY Verified 03/07/24 20:18 Ygwbywc-ORO-QlW Reductase AdvReac Intermediate MYOPATHY Verified 03/07/24 20:18 Inhibitor [Ycznmdv-Lgk-Dxv Reductase Inhibitor] Home Meds Home Medications Medication Instructions Recorded Confirmed aspirin 81 mg tablet,delayed 81 mg PO DAILY 11/24/18 03/07/24 release lansoprazole 30 mg capsule,delayed 30 mg PO BID 08/27/19 03/07/24 release fluticasone propionate 50 2 sprays intranasal QAM PRN 10/27/22 03/07/24 mcg/actuation nasal Congestion spray,suspension (Flonase Allergy Relief) terazosin 1 mg capsule 1 mg PO BID 04/21/23 03/07/24 acetaminophen 500 mg tablet 1,000 mg PO DIRECTED PRN Pain 03/07/24 03/07/24 (Tylenol Extra Strength) cyanocobalamin (vitamin B-12) 1,000 mcg PO DAILY 03/07/24 03/07/24 1,000 mcg tablet (Vitamin B-12) prednisone 5 mg tablet 5 mg PO QAM RHEUMATIC DISEASE 03/07/24 03/07/24 Results & Data (ED) Vital Signs Vital Signs - 24 hr 03/07/24 16:41 03/07/24 16:47 03/07/24 16:48 Temperature 36.4 C L Temperature Source Oral Pulse Rate 52 L 54 L 50 L Pulse Rate [Apical] Pulse Rate from SpO2 Sensor 54 L Respiratory Rate 24 29 H Respiratory Effort / Characteristics Respiratory Depth Normal Blood Pressure 150/75 H Blood Pressure [Right Arm] Blood Pressure Mean 100 Blood Pressure Mean [Right Arm] Blood Pressure Position Semi-fowlers Blood Pressure Position [Right Arm] Pulse Oximetry 98 96 Oxygen Delivery Method Room Air Sepsis Recent Fever Within 48 Hours No Sepsis New/Unexplained Change in Mental Status No Sepsis Action Taken by Nursing No Action Required 03/07/24 16:54 03/07/24 17:00 03/07/24 17:01 Temperature Temperature Source Pulse Rate 55 L 40 L 0 L Pulse Rate [Apical] Pulse Rate from SpO2 Sensor 55 L 40 L Respiratory Rate 19 19 Respiratory Effort / Characteristics Respiratory Depth Blood Pressure Blood Pressure [Right Arm] Blood Pressure Mean Blood Pressure Mean [Right Arm] Blood Pressure Position Blood Pressure Position [Right Arm] Pulse Oximetry 96 96 Oxygen Delivery Method Sepsis Recent Fever Within 48 Hours Sepsis New/Unexplained Change in Mental Status Sepsis Action Taken by Nursing 03/07/24 17:03 03/07/24 17:05 03/07/24 17:05 Temperature Temperature Source Pulse Rate Pulse Rate [Apical] Pulse Rate from SpO2 Sensor Respiratory Rate Respiratory Effort / Characteristics Respiratory Depth Blood Pressure 169/97 H 146/80 H 146/80 H Blood Pressure [Right Arm] Blood Pressure Mean 130 108 108 Blood Pressure Mean [Right Arm] Blood Pressure Position Blood Pressure Position [Right Arm] Pulse Oximetry Oxygen Delivery Method Sepsis Recent Fever Within 48 Hours Sepsis New/Unexplained Change in Mental Status Sepsis Action Taken by Nursing 03/07/24 17:06 03/07/24 17:10 03/07/24 17:21 Temperature Temperature Source Pulse Rate 36 L Pulse Rate [Apical] Pulse Rate from SpO2 Sensor 36 L Respiratory Rate 16 Respiratory Effort / Characteristics Respiratory Depth Blood Pressure 143/74 H Blood Pressure [Right Arm] Blood Pressure Mean 100 Blood Pressure Mean [Right Arm] Blood Pressure Position Blood Pressure Position [Right Arm] Pulse Oximetry 99 Oxygen Delivery Method Room Air Sepsis Recent Fever Within 48 Hours Sepsis New/Unexplained Change in Mental Status Sepsis Action Taken by Nursing 03/07/24 17:30 03/07/24 17:30 03/07/24 17:32 Temperature Temperature Source Pulse Rate Pulse Rate [Apical] 36 L Pulse Rate from SpO2 Sensor Respiratory Rate 20 Respiratory Effort / Characteristics Non-Labored Spontaneous Respiratory Depth Normal Blood Pressure 138/77 138/77 Blood Pressure [Right Arm] 138/77 Blood Pressure Mean 105 105 Blood Pressure Mean [Right Arm] 97 Blood Pressure Position Blood Pressure Position [Right Arm] Semi-fowlers Pulse Oximetry 99 Oxygen Delivery Method Room Air Sepsis Recent Fever Within 48 Hours Sepsis New/Unexplained Change in Mental Status Sepsis Action Taken by Nursing 03/07/24 17:33 03/07/24 17:39 03/07/24 17:40 Temperature Temperature Source Pulse Rate 36 L 37 L Pulse Rate [Apical] Pulse Rate from SpO2 Sensor 36 L 37 L Respiratory Rate 19 23 Respiratory Effort / Characteristics Respiratory Depth Blood Pressure 140/72 140/72 Blood Pressure [Right Arm] Blood Pressure Mean 94 95 Blood Pressure Mean [Right Arm] Blood Pressure Position Blood Pressure Position [Right Arm] Pulse Oximetry 99 99 Oxygen Delivery Method Sepsis Recent Fever Within 48 Hours Sepsis New/Unexplained Change in Mental Status Sepsis Action Taken by Nursing 03/07/24 17:45 03/07/24 17:50 03/07/24 17:51 Temperature Temperature Source Pulse Rate 54 L 46 L Pulse Rate [Apical] Pulse Rate from SpO2 Sensor Respiratory Rate 13 18 Respiratory Effort / Characteristics Respiratory Depth Blood Pressure 128/64 Blood Pressure [Right Arm] Blood Pressure Mean 87 Blood Pressure Mean [Right Arm] Blood Pressure Position Blood Pressure Position [Right Arm] Pulse Oximetry Oxygen Delivery Method Sepsis Recent Fever Within 48 Hours Sepsis New/Unexplained Change in Mental Status Sepsis Action Taken by Nursing 03/07/24 17:57 03/07/24 18:00 03/07/24 18:10 Temperature Temperature Source Pulse Rate 38 L Pulse Rate [Apical] Pulse Rate from SpO2 Sensor Respiratory Rate 20 Respiratory Effort / Characteristics Respiratory Depth Blood Pressure 121/58 L 135/78 Blood Pressure [Right Arm] Blood Pressure Mean 92 115 Blood Pressure Mean [Right Arm] Blood Pressure Position Blood Pressure Position [Right Arm] Pulse Oximetry Oxygen Delivery Method Sepsis Recent Fever Within 48 Hours Sepsis New/Unexplained Change in Mental Status Sepsis Action Taken by Nursing 03/07/24 18:15 03/07/24 18:16 03/07/24 18:20 Temperature Temperature Source Pulse Rate 36 L Pulse Rate [Apical] 39 L 56 L Pulse Rate from SpO2 Sensor Respiratory Rate 22 23 Respiratory Effort / Characteristics Respiratory Depth Blood Pressure Blood Pressure [Right Arm] 157/88 H Blood Pressure Mean Blood Pressure Mean [Right Arm] 111 Blood Pressure Position Blood Pressure Position [Right Arm] Pulse Oximetry 22 L Oxygen Delivery Method Sepsis Recent Fever Within 48 Hours Sepsis New/Unexplained Change in Mental Status Sepsis Action Taken by Nursing 03/07/24 18:30 Temperature Temperature Source Pulse Rate 53 L Pulse Rate [Apical] Pulse Rate from SpO2 Sensor 84 Respiratory Rate 20 Respiratory Effort / Characteristics Respiratory Depth Blood Pressure 157/69 H Blood Pressure [Right Arm] Blood Pressure Mean 98 Blood Pressure Mean [Right Arm] Blood Pressure Position Blood Pressure Position [Right Arm] Pulse Oximetry 100 Oxygen Delivery Method Sepsis Recent Fever Within 48 Hours Sepsis New/Unexplained Change in Mental Status Sepsis Action Taken by Nursing Laboratory Data 03/07/24 16:53 03/07/24 16:53 Lab Results 03/07/24 03/07/24 03/07/24 Range/Units 16:51 16:53 18:50 WBC 10.60 (4.8-10.8) K/ul RBC 4.47 L (4.70-6.10) M/uL Hgb 12.6 L (14.0-18.0) g/dl Hct 39.0 L (42.0-52.0) % MCV 87.2 (80.0-100.0) fL MCH 28.2 (25.0-34.0) pg MCHC 32.3 (32.0-36.0) g/dL RDW Std Deviation 41.7 (36.4-46.3) fL RDW Coeff of Josefina 13.2 (11.5-14.5) % Plt Count 277 (130-400) K/uL MPV 10.0 (9.4-12.4) fL Immature Gran % (Auto) 0.4 % Neut % (Auto) 75.7 % Lymph % (Auto) 16.5 % Gregg % (Auto) 6.4 % Eos % (Auto) 0.6 % Baso % (Auto) 0.4 % Neut # (Auto) 8.03 H (1.40-6.50) K/uL Lymph # (Auto) 1.75 (1.20-3.40) K/uL Gregg # (Auto) 0.68 H (0.11-0.59) K/uL Eos # (Auto) 0.06 (0.00-0.50) K/uL Baso # (Auto) 0.04 (0.00-0.20) K/uL Immature Gran # (Auto) 0.04 (0.01-0.20) K/uL PT 10.4 (9.0-12.0) Seconds INR 1.0 (0.9-1.1) Sodium 139 (136-145) mmol/L Potassium 4.4 (3.5-5.1) mmol/L Chloride 108 H (98-107) mmol/L Carbon Dioxide 23 (21-32) mmol/L Anion Gap 8 (3-11) BUN 18 (6-23) mg/dl Creatinine 1.15 (0.6-1.4) mg/dl Est Cr Clr Drug Dosing 49.4 ml/min Est GFR ( Amer) 67.4 ml/min Est GFR (Non-Af Amer) 58.1 ml/min BUN/Creatinine Ratio 15.7 (10-20) Glucose 129 H (70-99(Fasting)) mg/dl POC Glucose 126 H (70-99) mg/dl Calcium 9.1 (8.6-10.3) mg/dl Phosphorus 2.6 (2.5-4.9) mg/dl Magnesium 2.0 (1.7-2.4) mg/dl Total Bilirubin 0.5 (0.2-1.0) mg/dl AST 13 (13-39) U/L ALT 13 (7-52) U/L Alkaline Phosphatase 76 (34-104) U/L Troponin I High Sens 8.1 (0-20) pg/ml Total Protein 6.4 (6.0-8.3) gm/dl Albumin 4.0 (3.4-5.0) gm/dl Globulin 2.4 L (2.5-4.0) gm/dl Albumin/Globulin Ratio 1.7 (0.9-2) Lipase 23 (11-82) U/L TSH 3.020 (0.300-4.500) uIu/ml Random Cortisol 14.63 mcg/dl Urine Color Yellow Urine Appearance Clear (Clear) Urine pH 6.0 (4.5-7.5) Ur Specific [place] 1.019 (1.000-1.030) Urine Protein Negative (Negative) Urine Glucose (UA) Negative (Negative) Urine Ketones Negative (Negative) Urine Blood Negative (Negative) Urine Nitrite Negative (Negative) Urine Bilirubin Negative (Negative) Urine Urobilinogen Negative (Negative) Ur Leukocyte Esterase Negative (Negative) Lyme Disease Screen Negative (Negative) Administered Medications Lactated Ringer's (Lr) 1,000 mls @ 80 mls/hr IV .[id number] LAURA Stop: 03/08/24 12:30 Last Admin: 03/07/24 22:58 Dose: 80 mls/hr Documented By: [facility] Discontinued Medications Atropine Sulfate (Atropine Sulfate 0.1 Mg/Ml 10ml Syr) 1 mg IV NOW STA Stop: 03/07/24 18:10 Last Admin: 03/07/24 18:16 Dose: 1 mg Documented By: MARY GRACE Hydrocortisone Sodium Succinate (Hydrocortisone Sod Succinate 100 Mg/2 Ml Vial) 100 mg IV NOW STA Stop: 03/07/24 19:04 Last Admin: 03/07/24 19:30 Dose: 100 mg Documented By: MARY GRACE Sodium Chloride (Nss) 1,000 mls @ 999 mls/hr IV .[id number] STA Stop: 03/07/24 18:10 Last Infusion: 03/07/24 18:56 Dose: Infused Documented By: MARY GRACE Admin: 03/07/24 17:39 Dose: 999 mls/hr Documented By: JUDY Famotidine (Pepcid 20mg Iv Push) 20 mg in 5 mls @ 2.5 mls/min IV NOW STA Stop: 03/07/24 17:11 Last Admin: 03/07/24 17:28 Dose: 2.5 mls/min Documented By: JUDY Ioversol (Optiray 320 125ml) 115 ml IV ONCE ONE Stop: 03/07/24 18:55 Last Admin: 03/07/24 18:54 Dose: 115 ml Documented By: JANE Ondansetron HCl (Ondansetron Inj 2 Mg/Ml 2 Ml Vial) 4 mg IV NOW STA Stop: 03/07/24 17:11 Last Admin: 03/07/24 17:32 Dose: Not Given Documented By: JUDY Imaging Data Radiologist's Impression: Chest X-Ray 03/07/24 17:10 XR chest 1V portable CLINICAL HISTORY: Chest pain, nonspecific COMPARISON STUDY: Chest CT September 28, 2022. Chest radiograph October 29, 2022. FINDINGS: Left shoulder arthroplasty is incidentally noted. There is no pneumothorax or pleural effusion. There is no consolidation to suggest pneumonia. No evidence for pulmonary edema. Cardiomegaly is unchanged. There are multiple old left-sided rib fractures. IMPRESSION: No acute cardiopulmonary findings. ACT 112: Negative or not required by law. Electronically signed by: Braeden Alcantar M.D. 03/07/2024 6:[address] 03/07/24 18:07 CT OF THE HEAD WITHOUT CONTRAST CLINICAL HISTORY: confusion, dizziness COMPARISON STUDY: Head CT September 28, 2022. TECHNIQUE: Helical axial images of the head were obtained without IV contrast. Automated exposure control was utilized for the study. A dose lowering technique was utilized adhering to the principles of ALARA. FINDINGS: No acute intracranial hemorrhage, midline shift or mass effect is present. White matter hypodensity suggests small vessel disease. The ventricular system is unremarkable. The basal cisterns are patent. No extra-axial collections are present. There are no findings to suggest acute dural sinus thrombosis or acute territorial infarct. There are no calvarial fractures. There is a small air-fluid level within the left sphenoid sinus. IMPRESSION: No acute intracranial findings. ACT 112: Negative or not required by law. Electronically signed by: Braeden Alcantar M.D. 03/07/2024 7:01 PM Head CTA 03/07/24 18:07 CTA ANGIOGRAPHY OF THE HEAD CLINICAL HISTORY: confusion, dizziness COMPARISON STUDY: CTA of the head June 03, 2017. TECHNIQUE: Helical axial images of the head were obtained following uneventful intravenous administration of 115 cc of Optiray. Sagittal and coronal reconstructions were viewed as well as maximal intensity projections on an independent 3-D workstation. Automated exposure control was utilized for the study. A dose lowering technique was utilized adhering to the principles of ALARA. FINDINGS: Extensive plaque within the cavernous and supraclinoid ICAs is noted. This results in severe stenosis of the supraclinoid ICAs 80% stenosis bilaterally. No central vessel occlusion is present. There is no intracranial aneurysm. The bilateral M1, M2, A1 and A2 segments are patent. There is mild stenosis of the intracranial portion of the right vertebral artery. The basilar artery is patent. The bilateral posterior cerebral arteries are patent. IMPRESSION: 1. No large vessel occlusion. No intracranial aneurysm. 2. 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 ACT 112: Negative or not required by law. Electronically signed by: Braeden Alcantar M.D. 03/07/2024 7:23 PM Neck CTA 03/07/24 18:07 CT ANGIOGRAPHY OF THE NECK WITH CONTRAST CLINICAL HISTORY: confusion, dizziness COMPARISON STUDY: CTA of the neck June 03, 2017. Technique: CT angiography of the carotid and vertebral arteries was obtained using Optiray and 3D reconstruction on an independent workstation. NASCET criteria was utilized. Automated exposure control was utilized for the study. A dose lowering technique was utilized adhering to the principles of ALARA. CT DOSE: 1474.52 mGy.cm Findings: Visualized portions of the lung apices are unremarkable. There are no cervical spine fractures. 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 Moderate to severe multifocal stenoses within the remainder of the right vertebral artery have increased. There is moderate stenosis at the origin of the left vertebral artery. There is no acute dissection within the neck. There is no aneurysm. There is moderate calcified and noncalcified atherosclerotic plaque within the bilateral proximal internal carotid arteries. This plaque results in 50% narrowing of the proximal left internal carotid artery and 40% narrowing of the proximal right internal carotid artery. IMPRESSION: 1. 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 2. 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 Moderate to severe stenoses within the right vertebral artery which have slightly increased in degree. No change in moderate stenosis at the origin of the left vertebral artery. ACT 112: Negative or not required by law. Electronically signed by: Braeden Alcantar M.D. 03/07/2024 7:13 PM Discharge Plan Visit Data Chief Complaint: Altered Mental Status Stated Complaint: AMS ED Provider: Forest Calhoun Discharge Problem: Symptomatic bradycardia, PMR (polymyalgia rheumatica), Chronic steroid use, Confusion Patient Disposition: Admitted As Inpatient Discharge Instructions Interventions: ED Discharge Assessment Last Done: 03/07/24 20:48
[2024-03-07] MEDS: FAMOTIDINE 20MG IV PUSH 20 MG/5 ML SYR IV STA (17:28)
[2024-03-07] MEDS: ONDANSETRON INJ 2 MG/ML 2 ML VIAL IV STA (17:32)
[2024-03-07] MEDS: SODIUM CHLORIDE 0.9% 1,000 ML IV STA (17:39)
[2024-03-07 17:47] LABS: Basophils # (auto) 0.04 K/uL (0.00-0.20); Basophils % (auto) 0.4 %; Eosinophils # (auto) 0.06 K/uL (0.00-0.50); Eosinophils % (auto) 0.6 %; Hemoglobin 12.6 g/dl (14.0-18.0); Immature Granulocytes # (auto) 0.04 K/uL (0.01-0.20); Immature Granulocytes % (auto) 0.4 %; Lymphocytes # (auto) 1.75 K/uL (1.20-3.40); Lymphocytes % (auto) 16.5 %; Mean Corpuscular Hemoglobin 28.2 pg (25.0-34.0); Mean Corpuscular Hgb Conc 32.3 g/dL (32.0-36.0); Mean Corpuscular Volume 87.2 fL (80.0-100.0); Monocytes # (auto) 0.68 K/uL (0.11-0.59); Monocytes % (auto) 6.4 %; Neutrophils # (auto) 8.03 K/uL (1.40-6.50); Neutrophils % (auto) 75.7 %; Platelet Count 277 K/uL (130-400); RDW Coefficient of Variation 13.2 % (11.5-14.5); RDW Standard Deviation 41.7 fL (36.4-46.3); Red Blood Count 4.47 M/uL (4.70-6.10)
[2024-03-07 18:05] LABS: Albumin Globulin Ratio 1.7 (0.9-2); BUN Creatinine Ratio 15.7 (10-20); Bilirubin,Total 0.5 mg/dl (0.2-1.0); Calcium 9.1 mg/dl (8.6-10.3); Creatinine Clr Calc Pharmacy 49.4 ml/min; Est GFR (African American) 67.4 ml/min; Est GFR (Non-African American) 58.1 ml/min; Globulin 2.4 gm/dl (2.5-4.0); Phosphorus 2.6 mg/dl (2.5-4.9); Potassium 4.4 mmol/L (3.5-5.1); Total Protein 6.4 gm/dl (6.0-8.3)
[2024-03-07 18:10] LABS: Troponin I High Sensitivity 8.1 pg/ml (0-20)
[2024-03-07] MEDS: ATROPINE SULFATE 0.1 MG/ML 10ML SYR IV STA (18:16)
--- NOTE | 2024-03-07 18:18 | XRay Report ---
XR chest 1V portable CLINICAL HISTORY: Chest pain, nonspecific COMPARISON STUDY: Chest CT September 28, 2022. Chest radiograph October 29, 2022. FINDINGS: Left shoulder arthroplasty is incidentally noted. There is no pneumothorax or pleural effus ion. There is no consolidation to suggest pneumonia. No evidence for pulmonary edema. Cardiomegaly is unchanged. There are multiple old left-sided rib fractures. IMPRESSION: No acute cardiopulmonary findings. ACT 112: Negative or not required by law. Electronically signed by: Braeden Alcantar M.D. 03/07/2024 6:16 PM
[2024-03-07 18:20] LABS: Thyroid Stimulating Hormone 3.02 uIu/ml (0.300-4.500)
[2024-03-07 18:21] LABS: Prothrombin Time 10.4 Seconds (9.0-12.0)
[2024-03-07] MEDS: OPTIRAY 320 125ml IV ONE (18:54)
--- NOTE | 2024-03-07 19:03 | CT Scan Report ---
CT OF THE HEAD WITHOUT CONTRAST CLINICAL HISTORY: confusion, dizziness COMPARISON STUDY: Head CT September 28, 2022. TECHNIQUE: Helical axial images of the head were obtained without IV contrast. Automated exposure con trol was utilized for the study. A dose lowering technique was utilized adhering to the principles o f ALARA. FINDINGS: No acute intracranial hemorrhage, midline shift or mass effect is present. White matter hyp odensity suggests small vessel disease. The ventricular system is unremarkable. The basal cisterns ar e patent. No extra-axial collections are present. There are no findings to suggest acute dural sinus thrombosis or acute territorial infarct. There are no calvarial fractures. There is a small air-fluid level within the left sphenoid sinus. IMPRESSION: No acute intracranial findings. ACT 112: Negative or not required by law. Electronically signed by: Braeden Alcantar M.D. 03/07/2024 7:01 PM
--- NOTE | 2024-03-07 19:15 | CT Scan Report ---
CT ANGIOGRAPHY OF THE NECK WITH CONTRAST CLINICAL HISTORY: confusion, dizziness COMPARISON STUDY: CTA of the neck June 03, 2017. Technique: CT angiography of the carotid and vertebral arteries was obtained using Optiray and 3D rec onstruction on an independent workstation. NASCET criteria was utilized. Automated exposure control was utilized for the study. A dose lowering technique was utilized adhering to the principles of ALA RA. CT DOSE: 1474.52 mGy.cm Findings: Visualized portions of the lung apices are unremarkable. There are no cervical spine fractu res. 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 Moderate to severe multifocal stenoses within the remainder of the right vertebral artery have increased. There is moderate stenosis at the origin of the left vertebral artery. There is no acute dissection within the neck. There is no aneurysm. There is moderate calcif ied and noncalcified atherosclerotic plaque within the bilateral proximal internal carotid arteries. This plaque results in 50% narrowing of the proximal left internal carotid artery and 40% narrowing o f the proximal right internal carotid artery. IMPRESSION: 1. 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 2. 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 Moderate to severe stenoses within the right vertebral artery which have slightly incre ased in degree. No change in moderate stenosis at the origin of the left vertebral artery. ACT 112: Negative or not required by law. Electronically signed by: Braeden Alcantar M.D. 03/07/2024 7:13 PM
[2024-03-07 19:22] LABS: Appearance Urine Clear (Clear); Bilirubin Urine Negative (Negative); Blood Urine Negative (Negative); Color Urine Yellow; Glucose Urine UA Negative (Negative); Ketones Urine Negative (Negative); Leukocyte Esterase Urine Negative (Negative); Nitrite Urine Negative (Negative); Protein Urine Negative (Negative); Specific Gravity Urine 1.019 (1.000-1.030); Urobilinogen Urine Negative (Negative)
--- NOTE | 2024-03-07 19:26 | CT Scan Report ---
CTA ANGIOGRAPHY OF THE HEAD CLINICAL HISTORY: confusion, dizziness COMPARISON STUDY: CTA of the head June 03, 2017. TECHNIQUE: Helical axial images of the head were obtained following uneventful intravenous administr ation of 115 cc of Optiray. Sagittal and coronal reconstructions were viewed as well as maximal inten sity projections on an independent 3-D workstation. Automated exposure control was utilized for the study. A dose lowering technique was utilized adhering to the principles of ALARA. FINDINGS: Extensive plaque within the cavernous and supraclinoid ICAs is noted. This results in sever e stenosis of the supraclinoid ICAs 80% stenosis bilaterally. No central vessel occlusion is present. There is no intracranial aneurysm. The bilateral M1, M2, A1 and A2 segments are patent. There is mil d stenosis of the intracranial portion of the right vertebral artery. The basilar artery is patent. T he bilateral posterior cerebral arteries are patent. IMPRESSION: 1. No large vessel occlusion. No intracranial aneurysm. 2. 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 ACT 112: Negative or not required by law. Electronically signed by: Braeden Alcantar M.D. 03/07/2024 7:23 PM
[2024-03-07] MEDS: HYDROCORTISONE SOD SUCCINATE 100 MG/2 ML VIAL IV STA (19:30)
--- NOTE | 2024-03-07 19:46 | History & Physical Report ---
Date of Service March 07, 2024 Assessment & Plan (1) Symptomatic bradycardia: Plan: 83yo male presenting with symptomatic bradycardia - HR 30-50 with sinus pause noted on monitor. Patient is NOT on beta blockers or calcium channel blockers. No tick bites. No recent illness. He does have some underlying cardiac conduction disease with pre-existing RBBB. Electrolytes are WNL as is troponin and TSH. His random cortisol level is 14. Bradycardia responsive to dose of Atropine. Rate now improved to 50's. -Admit to PCU -Maintain pacer pads on chest - placed in ER. No need for transcutaneous pacing at this time due to improved BP after atropine as well as improved symptoms. -Check 2D echo -Cardiology consultation appreciated -Atropine PRN should patient's HR decline (2) Confusion: Plan: Patient's son reports worsening confusion. Possibly secondary to bradycardia, poor perfusion. Patient is able to answer questions appropriately during my encounter - oriented x 2 (not to date) Electrolytes are WNL as is TSH. CT of the head is unremarkable. No clear evidence of infection. -Frequent orientation Plan CHRONIC MEDICAL CONDITIONS: CAD - patient with CAD s/p PCI x 2 remotely. No chest pain. EKG with no acute ischemic changes. Troponin x 1 negative -Continue ASA 81mg po daily -Statin intolerant -No beta blockers on board GERD - chronic. stable -Continue Prevacid PMR - chronic. -Continue Prednisone 5mg po daily BPH - chronic -Continue Terazosin SUMAYA - patient was evaluated by Sleep/Pulmonary medicine in the past. Is to use CPAP 5cmH20. He is fairly non-compliant per review 01/06/24 -CPAP qHS F/E/N - LR at 80mL/hr x1L, electrolytes WNL, AHA diet as tolerated Ppx - encourage ambulation. Would initiate chemoprophylaxis if prolonged hospital stay Code- Full per discussion with patient Dispo - Admit to PCU History of Present Illness Chief Complaint: Symptomatic bradycardia Primary Care Provider: Lenny Winn MD Germán Daniel is an 83-year-old male multiple medical comorbidities to include hypertension, hyperlipidemia, CAD, polymyalgia rheumatica on daily prednisone, COPD and SUMAYA presenting from home with feeling ill. Patient's son lives with him. Patient was in his usual state of health earlier today. He attended an eye appointment by himself earlier in the day and also accompanied his son to visit a client. Later in the day he was home by himself and he called his son saying that "something isn't right". His son found him kneeling on the floor in the home, seemingly somewhat confused. In the ambulance patient did clutch his chest at one point saying "something isn't right" but he denied chest pain, palpitations or SOB. In the ER he was found to be in sinus bradycardia with HR 30-50's. He did have a prolonged sinus pause during which nursing noted that he was somewhat unresponsive, staring off and became pale in color. Patient with no complaints at this time. He would like to go home. ER Course: Atropine 1mg IV Hydrocortisone 100mg IV NSS x 1L Pepcid 20mg IV Allergies Allergy/AdvReac Type Severity Reaction Status Date / Time colestipol [From Colestid] Allergy Unknown [facility] Verified 03/07/24 20:18 LIST fluvastatin [From Lescol] Allergy Unknown [facility] Verified 03/07/24 20:18 LIST lovastatin [From Mevacor] Allergy Unknown [facility] Verified 03/07/24 20:18 LIST niacin Allergy Unknown [facility] Verified 03/07/24 20:18 [From Niaspan LIST Extended-Release] omeprazole [From Prilosec] Allergy Unknown [facility] Verified 03/07/24 20:18 LIST oxycodone Allergy Unknown [facility] Verified 03/07/24 20:18 LIST pantoprazole Allergy Unknown [facility] Verified 03/07/24 20:18 LIST pravastatin [From Pravachol] Allergy Unknown [facility] Verified 03/07/24 20:18 LIST rosuvastatin [From Crestor] Allergy Unknown [facility] Verified 03/07/24 20:18 LIST simvastatin [From Zocor] Allergy Unknown [facility] Verified 03/07/24 20:18 LIST ezetimibe AdvReac Intermediate MYOPATHY Verified 03/07/24 20:18 Gnvepkq-NAS-KkK Reductase AdvReac Intermediate MYOPATHY Verified 03/07/24 20:18 Inhibitor [Zxxkkml-Ngk-Jzd Reductase Inhibitor] Home Medications Medication Instructions Recorded Confirmed Type aspirin 81 mg tablet,delayed 81 mg PO DAILY 11/24/18 03/07/24 History release lansoprazole 30 mg capsule,delayed 30 mg PO BID 08/27/19 03/07/24 History release fluticasone propionate 50 2 sprays intranasal QAM PRN 10/27/22 03/07/24 History mcg/actuation nasal Congestion spray,suspension (Flonase Allergy Relief) terazosin 1 mg capsule 1 mg PO BID 04/21/23 03/07/24 History acetaminophen 500 mg tablet 1,000 mg PO DIRECTED PRN Pain 03/07/24 03/07/24 History (Tylenol Extra Strength) cyanocobalamin (vitamin B-12) 1,000 mcg PO DAILY 03/07/24 03/07/24 History 1,000 mcg tablet (Vitamin B-12) prednisone 5 mg tablet 5 mg PO QAM RHEUMATIC DISEASE 03/07/24 03/07/24 History Past Med/Surg History Problem List (Updated 03/07/24 @ 22:54 by Sharron Walsh DO) Confusion Symptomatic bradycardia Obstructive sleep apnea History of left shoulder replacement Prediabetes Chronic kidney disease Status post reverse arthroplasty of left shoulder Full thickness rotator cuff tear Hot flashes Chronic steroid use Encounter for pre-operative examination Abdominal pain PMR (polymyalgia rheumatica) Voiding dysfunction Chronic abdominal pain Allergic sinusitis Mesenteric lymphadenopathy Abdominal pain hx-"feel it was due to his pain medication, has gotten better" Prostate cancer Right bundle branch block GERD (gastroesophageal reflux disease) BPH (benign prostatic hyperplasia) Elevated PSA Hypertension Dyslipidemia Coronary artery disease JAZMÍN x1 to DI, JAZMÍN x1 to OM (2009) per available records Anxiety Acid reflux Chronic back pain (Chronic) Medical History History of skin cancer s/p excision (left thumb) History of prostate cancer Hx of fall 09/2022, fell down flight down stairs, "broke some ribs, tore some tendons" Hx of pneumothorax Per patient, told it was "very small" and "would heal on its own" Chronic obstructive pulmonary disease 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) - widely patent stents, nonocclusive CAD Family History Father Myocardial infarction Unknown ASCVD (arteriosclerotic cardiovascular disease) Aunt Breast cancer Brother Myocardial infarction Denies family history of Ovarian cancer Prostate cancer Colorectal cancer Social History Smoking Status: Never smoker Tobacco Type: Cigarettes Second Hand Exposure: No; Do You Dip or Chew Tobacco: No (Hx-quit 30 years ago); Hx Alcohol Use: Yes Alcohol type: beer Alcohol Intake Frequency: 2-4 x/Month Alcohol Intake Frequency Comment: 1 beer a week Hx Substance Use: No Preferred Language: Bahraini Communication Ability: Effective Visual Impairment: Diminished Hearing Ability: Use of Hearing Aid Charger Operator Helper Required: No Beliefs That Will Affect Care: None marital status: / Current Living Situation: Family and Other Current Living Situation Comment: son currently staying w/pt. current occupational status: retired How many Children do You have: 2 Feels Safe at Home: Yes Childhood Exposure to Second-Hand Smoke: Yes Diet: regular caffeine: Yes Dental Care, Regularly: No Physical Activity Frequency: 1-2 Times per Week Physical Activity Frequency Comment: swimming Seatbelt Use: always Sunscreen Use: Yes Assistive Devices: None Review of Systems Review of Systems: All systems reviewed & are unremarkable except as noted in HPI & below Physical Exam Physical Exam: General: patient resting comfortably, NAD, non-toxic in appearance, AA&O x 4 Skin: warm, dry, intact, no rashes or lesions HEENT: NC/AT, PERRL, EOMI, anicteric sclera, conjunctiva without injection, external ear normal to inspection and nontender, nares patent, moist mucus membranes, dentition intact, no oropharyngeal lesions, neck supple, trachea midline, no LAD, no thyromegaly, no JVD Heart: +S1/S2, regular, bradycardic, no m/r/g Lungs: equal air entry bilaterally, no rales/rhonchi/wheezes Abd: +BS, soft, NT/ND, no masses/organomegaly/ascites Ext: warm, 2+ pulses in UE/LE bilaterally, no clubbing/cyanosis, trace bilateral LE edema Neuro: nonfocal, patient AA&O x 4, speech intact, no facial droop, moving all extremities on command with equal strength 5/5 Patient is somewhat repetitive - asks the same question several times Results & Data Results & Data Vital Signs (Past 12 Hours) Vital Signs Temp Pulse Pulse Resp BP BP Pulse Ox 03/07/24 18:30 53 L 20 157/69 H 100 03/07/24 18:20 56 L 23 157/88 H 22 L 03/07/24 18:16 39 L 03/07/24 18:15 36 L 22 03/07/24 18:10 135/78 03/07/24 18:00 121/58 L 03/07/24 17:57 38 L 20 03/07/24 17:51 46 L 18 03/07/24 17:50 128/64 03/07/24 17:45 54 L 13 03/07/24 17:40 140/72 03/07/24 17:39 37 L 23 140/72 99 03/07/24 17:33 36 L 19 99 03/07/24 17:32 36 L 20 138/77 99 03/07/24 17:30 138/77 03/07/24 17:30 138/77 03/07/24 17:21 143/74 H 03/07/24 17:10 03/07/24 17:06 36 L 16 99 03/07/24 17:05 146/80 H 03/07/24 17:05 146/80 H 03/07/24 17:03 169/97 H 03/07/24 17:01 0 L 03/07/24 17:00 40 L 19 96 03/07/24 16:54 55 L 19 96 03/07/24 16:48 50 L 29 H 96 03/07/24 16:47 54 L 03/07/24 16:41 36.4 C L 52 L 24 150/75 H 98 O2 Del Method 03/07/24 18:30 03/07/24 18:20 03/07/24 18:16 03/07/24 18:15 03/07/24 18:10 03/07/24 18:00 03/07/24 17:57 03/07/24 17:51 03/07/24 17:50 03/07/24 17:45 03/07/24 17:40 03/07/24 17:39 03/07/24 17:33 03/07/24 17:32 Room Air 03/07/24 17:30 03/07/24 17:30 03/07/24 17:21 03/07/24 17:10 Room Air 03/07/24 17:06 03/07/24 17:05 03/07/24 17:05 03/07/24 17:03 03/07/24 17:01 03/07/24 17:00 03/07/24 16:54 03/07/24 16:48 03/07/24 16:47 03/07/24 16:41 Room Air Laboratory Results Laboratory Results WBC 10.60 K/ul (4.8-10.8) 03/07/24 16:53 RBC 4.47 M/uL (4.70-6.10) L 03/07/24 16:53 Hgb 12.6 g/dl (14.0-18.0) L 03/07/24 16:53 Hct 39.0 % (42.0-52.0) L 03/07/24 16:53 MCV 87.2 fL (80.0-100.0) 03/07/24 16:53 MCH 28.2 pg (25.0-34.0) 03/07/24 16:53 MCHC 32.3 g/dL (32.0-36.0) 03/07/24 16:53 RDW Std Deviation 41.7 fL (36.4-46.3) 03/07/24 16:53 RDW Coeff of Josefina 13.2 % (11.5-14.5) 03/07/24 16:53 Plt Count 277 K/uL (130-400) 03/07/24 16:53 MPV 10.0 fL (9.4-12.4) 03/07/24 16:53 Immature Gran % (Auto) 0.4 % 03/07/24 16:53 Neut % (Auto) 75.7 % 03/07/24 16:53 Lymph % (Auto) 16.5 % 03/07/24 16:53 [place] % (Auto) 6.4 % 03/07/24 16:53 Eos % (Auto) 0.6 % 03/07/24 16:53 Baso % (Auto) 0.4 % 03/07/24 16:53 Neut # (Auto) 8.03 K/uL (1.40-6.50) H 03/07/24 16:53 Lymph # (Auto) 1.75 K/uL (1.20-3.40) 03/07/24 16:53 [place] # (Auto) 0.68 K/uL (0.11-0.59) H 03/07/24 16:53 Eos # (Auto) 0.06 K/uL (0.00-0.50) 03/07/24 16:53 Baso # (Auto) 0.04 K/uL (0.00-0.20) 03/07/24 16:53 Immature Gran # (Auto) 0.04 K/uL (0.01-0.20) 03/07/24 16:53 PT 10.4 Seconds (9.0-12.0) 03/07/24 16:53 INR 1.0 (0.9-1.1) 03/07/24 16:53 Sodium 139 mmol/L (136-145) 03/07/24 16:53 Potassium 4.4 mmol/L (3.5-5.1) 03/07/24 16:53 Chloride 108 mmol/L (98-107) H 03/07/24 16:53 Carbon Dioxide 23 mmol/L (21-32) 03/07/24 16:53 Anion Gap 8 (3-11) 03/07/24 16:53 BUN 18 mg/dl (6-23) 03/07/24 16:53 Creatinine 1.15 mg/dl (0.6-1.4) 03/07/24 16:53 Est Cr Clr Drug Dosing 49.4 ml/min 03/07/24 16:53 Est GFR ( Amer) 67.4 ml/min 03/07/24 16:53 Est GFR (Non-Af Amer) 58.1 ml/min 03/07/24 16:53 BUN/Creatinine Ratio 15.7 (10-20) 03/07/24 16:53 Glucose 129 mg/dl (70-99(Fasting)) H 03/07/24 16:53 POC Glucose 126 mg/dl (70-99) H 03/07/24 16:51 Calcium 9.1 mg/dl (8.6-10.3) 03/07/24 16:53 Phosphorus 2.6 mg/dl (2.5-4.9) 03/07/24 16:53 Magnesium 2.0 mg/dl (1.7-2.4) 03/07/24 16:53 Total Bilirubin 0.5 mg/dl (0.2-1.0) 03/07/24 16:53 AST 13 U/L (13-39) 03/07/24 16:53 ALT 13 U/L (7-52) 03/07/24 16:53 Alkaline Phosphatase 76 U/L (34-104) 03/07/24 16:53 Troponin I High Sens 8.1 pg/ml (0-20) 03/07/24 16:53 Total Protein 6.4 gm/dl (6.0-8.3) 03/07/24 16:53 Albumin 4.0 gm/dl (3.4-5.0) 03/07/24 16:53 Globulin 2.4 gm/dl (2.5-4.0) L 03/07/24 16:53 Albumin/Globulin Ratio 1.7 (0.9-2) 03/07/24 16:53 Lipase 23 U/L (11-82) 03/07/24 16:53 TSH 3.020 uIu/ml (0.300-4.500) 03/07/24 16:53 Random Cortisol 14.63 mcg/dl 03/07/24 16:53 Urine Color Yellow 03/07/24 18:50 Urine Appearance Clear (Clear) 03/07/24 18:50 Urine pH 6.0 (4.5-7.5) 03/07/24 18:50 Ur Specific [place] 1.019 (1.000-1.030) 03/07/24 18:50 Urine Protein Negative (Negative) 03/07/24 18:50 Urine Glucose (UA) Negative (Negative) 03/07/24 18:50 Urine Ketones Negative (Negative) 03/07/24 18:50 Urine Blood Negative (Negative) 03/07/24 18:50 Urine Nitrite Negative (Negative) 03/07/24 18:50 Urine Bilirubin Negative (Negative) 03/07/24 18:50 Urine Urobilinogen Negative (Negative) 03/07/24 18:50 Ur Leukocyte Esterase Negative (Negative) 03/07/24 18:50 Lyme Disease Screen Negative (Negative) 03/07/24 16:53 Impressions Chest X-Ray 03/07/24 17:10 XR chest 1V portable CLINICAL HISTORY: Chest pain, nonspecific COMPARISON STUDY: Chest CT September 28, 2022. Chest radiograph October 29, 2022. FINDINGS: Left shoulder arthroplasty is incidentally noted. There is no pneumothorax or pleural effusion. There is no consolidation to suggest pneumonia. No evidence for pulmonary edema. Cardiomegaly is unchanged. There are multiple old left-sided rib fractures. IMPRESSION: No acute cardiopulmonary findings. ACT 112: Negative or not required by law. Electronically signed by: Braeden Alcantar M.D. 03/07/2024 6:[address] 03/07/24 18:07 CT OF THE HEAD WITHOUT CONTRAST CLINICAL HISTORY: confusion, dizziness COMPARISON STUDY: Head CT September 28, 2022. TECHNIQUE: Helical axial images of the head were obtained without IV contrast. Automated exposure control was utilized for the study. A dose lowering technique was utilized adhering to the principles of ALARA. FINDINGS: No acute intracranial hemorrhage, midline shift or mass effect is present. White matter hypodensity suggests small vessel disease. The ventricular system is unremarkable. The basal cisterns are patent. No extra-axial collections are present. There are no findings to suggest acute dural sinus thrombosis or acute territorial infarct. There are no calvarial fractures. There is a small air-fluid level within the left sphenoid sinus. IMPRESSION: No acute intracranial findings. ACT 112: Negative or not required by law. Electronically signed by: Braeden Alcantar M.D. 03/07/2024 7:01 PM Head CTA 03/07/24 18:07 CTA ANGIOGRAPHY OF THE HEAD CLINICAL HISTORY: confusion, dizziness COMPARISON STUDY: CTA of the head June 03, 2017. TECHNIQUE: Helical axial images of the head were obtained following uneventful intravenous administration of 115 cc of Optiray. Sagittal and coronal reconstructions were viewed as well as maximal intensity projections on an independent 3-D workstation. Automated exposure control was utilized for the s tudy. A dose lowering technique was utilized adhering to the principles of ALARA. FINDINGS: Extensive plaque within the cavernous and supraclinoid ICAs is noted. This results in severe stenosis of the supraclinoid ICAs 80% stenosis bilaterally. No central vessel occlusion is present. There is no intracranial aneurysm. The bilateral M1, M2, A1 and A2 segments are patent. There is mild stenosis of the intracranial portion of the right vertebral artery. The basilar artery is patent. The bilateral posterior cerebral arteries are patent. IMPRESSION: 1. No large vessel occlusion. No intracranial aneurysm. 2. 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 ACT 112: Negative or not required by law. Electronically signed by: Braeden Alcantar M.D. 03/07/2024 7:23 PM Neck CTA 03/07/24 18:07 CT ANGIOGRAPHY OF THE NECK WITH CONTRAST CLINICAL HISTORY: confusion, dizziness COMPARISON STUDY: CTA of the neck June 03, 2017. Technique: CT angiography of the carotid and vertebral arteries was obtained using Optiray and 3D reconstruction on an independent workstation. NASCET criteria was utilized. Automated exposure control was utilized for the study. A dose lowering technique was utilized adhering to the principles of ALARA. CT DOSE: 1474.52 mGy.cm Findings: Visualized portions of the lung apices are unremarkable. There are no cervical spine fractures. 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 Moderate to severe multifocal stenoses within the remainder of the right vertebral artery have increased. There is moderate stenosis at the origin of the left vertebral artery. There is no acute dissection within the neck. There is no aneurysm. There is moderate calcified and noncalcified atherosclerotic plaque within the bilateral proximal internal carotid arteries. This plaque results in 50% narrowing of the proximal left internal carotid artery and 40% narrowing of the proximal right internal carotid artery. IMPRESSION: 1. 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 2. 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 Moderate to severe stenoses within the right vertebral artery which have slightly increased in degree. No change in moderate stenosis at the origin of the left vertebral artery. ACT 112: Negative or not required by law. Electronically signed by: Braeden Alcantar M.D. 03/07/2024 7:13 PM ECG Additional Comments: EKG wtih sinus bradycardia at 35bpm, left axis, HM=085. ZYC=840, QTc=38. RBBB present, LAFB present Similar to prior EKG 29 Oct 2022 aside from rate change PG Care Time/CCT Total # of Minutes Spent Total Time Spent with Patient: Total time spent is greater than 50% in coordination of care (as documented) at patient's floor/unit and/or counseling patient: Coding Level of Care Code 07401 INT INP/OBS CARE 2/55MIN Diagnoses Symptomatic bradycardia R00.1 Confusion R41.0
[2024-03-07] MEDS ORDERED: FLUTICASONE PROPIONATE NA SPR 16 GM BTL PRN (21:24)
[2024-03-07] MEDS ORDERED: ACETAMINOPHEN 500 MG TAB PO PRN (21:24)
[2024-03-07] MEDS: LACTATED RINGER'S 1,000 ML IV SCH (22:58)
[2024-03-08] MEDS ORDERED: ATROPINE SULFATE 0.1 MG/ML SYRINGE INJ PRN (05:03)
[2024-03-08] MEDS: ATROPINE SULFATE 0.1 MG/ML 10ML SYR IV ONE (05:32)
[2024-03-08] MEDS: ATROPINE SULFATE 0.1 MG/ML 5ML SYR IV ONE (05:32)
[2024-03-08 06:30] LABS: Hematocrit (blood only) 37.1 % (42.0-52.0); Hemoglobin 12.5 g/dl (14.0-18.0); Mean Corpuscular Hemoglobin 28.9 pg (25.0-34.0); Mean Corpuscular Hgb Conc 33.7 g/dL (32.0-36.0); Mean Corpuscular Volume 85.7 fL (80.0-100.0); Mean Platelet Volume 9.8 fL (9.4-12.4); Platelet Count 267 K/uL (130-400); RDW Coefficient of Variation 12.9 % (11.5-14.5); RDW Standard Deviation 40.4 fL (36.4-46.3); Red Blood Count 4.33 M/uL (4.70-6.10); White Blood Count 13.53 K/ul (4.8-10.8)
[2024-03-08 06:39] LABS: BUN Creatinine Ratio 13.7 (10-20); Creatinine Clr Calc Pharmacy 59.8 ml/min; Est GFR (African American) 84.9 ml/min; Est GFR (Non-African American) 73.2 ml/min; Potassium 4.3 mmol/L (3.5-5.1)
[2024-03-08] MEDS: ASPIRIN 81 MG ECTAB PO SCH (08:56)
[2024-03-08] MEDS: LANSOPRAZOLE 30 MG SOLTAB PO SCH (08:57)
[2024-03-08] MEDS: predniSONE 5 MG TAB PO SCH (08:59)
[2024-03-08] MEDS: TERAZOSIN HCL 1 MG CAP PO SCH (08:59)
--- NOTE | 2024-03-08 09:49 | Electrocardiogram Report ---
Test Reason : Blood Pressure : / mmHG Vent. Rate : 035 BPM Atrial Rate : 035 BPM P-R Int : 218 ms QRS Dur : 140 ms QT Int : 470 ms P-R-T Axes : 079 -50 057 degrees QTc Int : 358 ms Marked sinus bradycardia with 1st degree A-V block Right bundle branch block Left anterior fascicular block Bifascicular block Abnormal ECG When compared with ECG of 07-MAR-2024 16:43, (unconfirmed) Vent. rate has decreased BY 20 BPM Confirmed by Ho Huff ([id number]) on 03/08/2024 9:48:27 AM Referred By: REFERRED SELF Confirmed By:Ho Huff
--- NOTE | 2024-03-08 10:10 | Hospitalist Progress Note ---
Date of Service March 08, 2024 Assessment & Plan (1) Symptomatic bradycardia: Plan: Presented with symptomatic bradycardia - HR 30-50 with sinus pause noted on monitor. - Patient is NOT on beta blockers or calcium channel blockers. No tick bites. No recent illness. - He does have some underlying cardiac conduction disease with pre-existing RBBB. - Electrolytes are WNL as is troponin and TSH. Random cortisol level is 14. - Bradycardia responsive to dose of Atropine. Rate now improved to 50's. - ECG revealed episodes of 21 AV conduction and complete heart block. - Echocardiogram revealed EF=60-65%, no regional wall abnormalities. - Cardiology consulted > Plan for permanent pacemaker with Dr. Harper on 03/09/2024. NPO at midnight. - Atropine PRN should patient's HR decline (2) Confusion: Plan: Patient's son reports worsening confusion on admission. - Electrolytes are WNL as is TSH. No clear evidence of infection. - CT of the head is unremarkable. - Patient returned to baseline mental status. Transient confusion on admission was most likely due to poor perfusion from bradycardia. Plan Updated son at bedside Plan for permanent pacemaker tomorrow, 03/09/2024 CHRONIC MEDICAL CONDITIONS: CAD - patient with CAD s/p PCI x 2 remotely. No chest pain. EKG with no acute ischemic changes. Troponin x 1 negative -Continue ASA 81mg po daily -Statin intolerant -No beta blockers on board GERD - chronic. stable -Continue Prevacid PMR - chronic. -Continue Prednisone 5mg po daily BPH - chronic -Continue Terazosin SUMAYA - patient was evaluated by Sleep/Pulmonary medicine in the past. Is to use CPAP 5cmH20. He is fairly non-compliant per review 01/06/24 -CPAP qHS VTE PPx: encourage ambulation. Would initiate chemoprophylaxis if prolonged hospital stay CODE STATUS: Full code Admission and Anticipated Discharge Date Admission Date: March 07, 2024 Subjective Patient seen and evaluated at bedside with sonNatan. Patient reports symptom resolution. He denies any lightheadedness, dizziness, weakness, confusion, shortness of breath, chest pain, or near-syncope. Patient is extremely eager to leave the hospital. We discussed the importance of waiting for the echo results, as well as cardiology's recommendations. Patient is agreeable. Physical Exam Physical Exam: General: No acute distress, nondiaphoretic, well-developed, well-nourished. Skin: The skin was without rashes, erythema, edema, or bruising. Cardiac: Regular rhythm, bradycardic at 50. No murmurs gallops or rubs. Pulm: Clear to auscultation bilaterally without wheezes, rales or rhonchi. No respiratory distress. 96% on room air. Abdominal: Soft, nontender, nondistended. Bowel sounds present. Neuro: A&O x3. No focal neurological deficits. Patient is somewhat repetitive - asks the same question several times Results & Data Results & Data Vital Signs (Past 12 Hours) Vital Signs Temp Pulse Pulse Resp BP BP Pulse Ox 03/08/24 07:53 44 L 03/08/24 07:25 36.3 C L 52 L 22 154/77 H 96 03/08/24 03:13 36.6 C 56 L 16 134/76 98 03/07/24 22:57 36.6 C 54 L 20 166/79 H 97 03/07/24 22:36 36.9 C 53 L 16 176/82 H 98 O2 Del Method 03/08/24 07:53 03/08/24 07:25 Room Air 03/08/24 03:13 Room Air 03/07/24 22:57 Room Air 03/07/24 22:36 Room Air Laboratory Results Reviewed CBC Reviewed CMP Reviewed chemistries Diagnostic Findings Reviewed echocardiogram 03/08/2024 Interpretation summary: Left ventricular systolic function is normal. No regional wall abnormalities noted. There is mild concentric left ventricular hypertrophy. Left ventricular ejection fraction= 60-65%. There is mild mitral regurgitation. Compared with study of 06/16/2010, no significant change. PG Care Time/CCT Total # of Minutes Spent Total Time Spent with Patient: Total time spent is greater than 50% in coordination of care (as documented) at patient's floor/unit and/or counseling patient: Coding Level of Care Code 52509 SUB INP/OBS CARE 2/35MIN Diagnoses Symptomatic bradycardia R00.1 Confusion R41.0
--- NOTE | 2024-03-08 11:38 | XCELERA ---
[id number] \\[id number]
--- NOTE | 2024-03-08 11:43 | Cardiology Consultation ---
Date of Consultation March 08, 2024 Assessment & Plan (1) Symptomatic bradycardia: -With episodes of 21 AV conduction and complete heart block. -Dr. Harper plans on a permanent pacemaker tomorrow morning. (2) Coronary artery disease: -JAZMÍN within D1 and OM in 2009. -Patent stents in 2013. -Remains quiescent on medical management. (3) Hypertension: -Adequate control currently. History of Present Illness Attending Physician: Carroll Alexander MD History of Present Illness Mr. Daniel is an 83-year-old male admitted yesterday with symptomatic bradycardia. This consultation was ordered to assist in his cardiac management. The patient was in his usual state of health until yesterday afternoon. He explained to his son that "something is not right." He was then found on his knees within the house and was confused. He was brought to the emergency room for further evaluation. On arrival here, he demonstrated a sinus bradycardia in the 30 to 50 bpm range. There were several prolonged pauses. He was given a dose of intravenous atropine and his heart rate improved. He has not experienced any radha syncope. He does carry history of coronary artery disease having stents placed within the first diagonal branch and an OM branch back in 2009. A cardiac catheterization performed in 2013 noted patent stents. He has done well from a cardiac perspective since that time. Currently, patient is resting comfortably in bed without complaints. Past medical and surgical history 1. Coronary artery diseasesee above 2. D1 [id number] 3. OM [id number] 4. Hypertension 5. Hypercholesterolemiastatin intolerant 6. RBBB 7. Hyperglycemia 8. Chronic renal failure 9. GERD 10. Polymyalgia rheumatica 11. BPH 12. Obstructive sleep apnea 13. Left TSR 14. Cholecystectomy 15. Tonsillectomy Social history , lives with his son No tobacco Occasional alcohol Family history Noncontributory Review of systems A 10 point review of systems was undertaken and negative except described above. Allergies Allergy/AdvReac Type Severity Reaction Status Date / Time colestipol [From Colestid] Allergy Unknown [facility] Verified 03/07/24 20:18 LIST fluvastatin [From Lescol] Allergy Unknown [facility] Verified 03/07/24 20:18 LIST lovastatin [From Mevacor] Allergy Unknown [facility] Verified 03/07/24 20:18 LIST niacin Allergy Unknown [facility] Verified 03/07/24 20:18 [From Niaspan LIST Extended-Release] omeprazole [From Prilosec] Allergy Unknown [facility] Verified 03/07/24 20:18 LIST oxycodone Allergy Unknown [facility] Verified 03/07/24 20:18 LIST pantoprazole Allergy Unknown ON [facility] Verified 03/07/24 20:18 LIST pravastatin [From Pravachol] Allergy Unknown [facility] Verified 03/07/24 20:18 LIST rosuvastatin [From Crestor] Allergy Unknown [facility] Verified 03/07/24 20:18 LIST simvastatin [From Zocor] Allergy Unknown [facility] Verified 03/07/24 20:18 LIST ezetimibe AdvReac Intermediate MYOPATHY Verified 03/07/24 20:18 Egqzrxl-JJZ-WdC Reductase AdvReac Intermediate MYOPATHY Verified 03/07/24 20:18 Inhibitor [Ypopuqq-Dur-Mmg Reductase Inhibitor] Home Medications Medication Instructions Recorded Confirmed Type aspirin 81 mg tablet,delayed 81 mg PO DAILY 11/24/18 03/07/24 History release lansoprazole 30 mg capsule,delayed 30 mg PO BID 08/27/19 03/07/24 History release fluticasone propionate 50 2 sprays intranasal QAM PRN 10/27/22 03/07/24 History mcg/actuation nasal Congestion spray,suspension (Flonase Allergy Relief) terazosin 1 mg capsule 1 mg PO BID 04/21/23 03/07/24 History acetaminophen 500 mg tablet 1,000 mg PO DIRECTED PRN Pain 03/07/24 03/07/24 History (Tylenol Extra Strength) cyanocobalamin (vitamin B-12) 1,000 mcg PO DAILY 03/07/24 03/07/24 History 1,000 mcg tablet (Vitamin B-12) prednisone 5 mg tablet 5 mg PO QAM RHEUMATIC DISEASE 03/07/24 03/07/24 History Patient History Medical History History of skin cancer s/p excision (left thumb) History of prostate cancer Hx of fall 09/2022, fell down flight down stairs, "broke some ribs, tore some tendons" Hx of pneumothorax Per patient, told it was "very small" and "would heal on its own" Chronic obstructive pulmonary disease 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 Heart attack NSTEMI (2009) > stents x2 Surgical History History of esophagogastroduodenoscopy (EGD) History of tonsillectomy History of knee surgery Right per records (pt denies) History of colonoscopy History of bronchoscopy Per records, pt unaware S/P cholecystectomy H/O cardiac catheterization 2009 ([facility])- JAZMÍN x2 per records 2013 ([facility]) - widely patent stents, nonocclusive CAD Family History Father Myocardial infarction Unknown ASCVD (arteriosclerotic cardiovascular disease) Aunt Breast cancer Brother Myocardial infarction Denies family history of Ovarian cancer Prostate cancer Colorectal cancer Social History Smoking Status: Former smoker Tobacco Type: Cigarettes Second Hand Exposure: No; Do You Dip or Chew Tobacco: No (Hx-quit 30 years ago); Hx Alcohol Use: Yes Alcohol type: beer Alcohol Intake Frequency: 2-4 x/Month Alcohol Intake Frequency Comment: 1 beer a week Hx Substance Use: No Preferred Language: Pashto Communication Ability: Effective Visual Impairment: Diminished Hearing Ability: Use of Hearing Aid Police Officer Required: No Beliefs That Will Affect Care: None marital status: / Current Living Situation: Family Current Living Situation Comment: lives with son current occupational status: retired How many Children do You have: 2 Other Information That Helps Us Care for You: No Feels Safe at Home: Yes Safety Concerns: Feels Safe At This Time Childhood Exposure to Second-Hand Smoke: Yes Diet: regular caffeine: Yes Dental Care, Regularly: No Physical Activity Frequency: 1-2 Times per Week Physical Activity Frequency Comment: swimming Seatbelt Use: always Sunscreen Use: Yes Assistive Devices: None Physical Exam Physical Exam: In general this is a well-developed well-nourished white male in no acute distress. HEENT exam is negative. Neck reveals normal carotid upstrokes without bruits. Jugular venous pressure is flat at 90. There is no thyromegaly. Cardiovascular exam reveals a regular rhythm with distant heart sounds. No obvious murmurs.. Lungs are clear without rales, rhonchi, or wheezes. Abdomen is soft without bruits. Extremities reveal intact radial artery and posterior tibial pulses bilaterally. There is no peripheral edema. Results & Data Vital Signs (Past 12 Hours) Vital Signs Temp Pulse Pulse Resp BP BP Pulse Ox 03/08/24 10:33 36.5 C 58 L 22 123/68 95 03/08/24 07:53 44 L 03/08/24 07:25 36.3 C L 52 L 22 154/77 H 96 03/08/24 03:13 36.6 C 56 L 16 134/76 98 O2 Del Method 03/08/24 10:33 Room Air 03/08/24 07:53 03/08/24 07:25 Room Air 03/08/24 03:13 Room Air Diagnostic Findings Telemetry monitoring notes sinus bradycardia, episodes of 2-1 AV conduction, and episodes of complete heart block. Echocardiogram notes normal left trickle systolic function with ejection fraction of 60 to 65%. There is mild LVH and mild mitral rotation. EKG notes sinus bradycardia at 35 bpm with a right bundle branch block and left axis deviation. PG Care Time/CCT Total # of Minutes Spent Total Time Spent with Patient: Total time spent is greater than 50% in coordination of care (as documented) at patient's floor/unit and/or counseling patient: Coding Level of Care Code 58219 INT INP/OBS CARE 3/75MIN Diagnoses Symptomatic bradycardia R00.1 Coronary artery disease involving [place] coronary artery of [place] heart with unstable angina pectoris I25.110 Coronary Disease-Associated Artery/Lesion type: [place] artery [place] vs. transplanted heart: [place] heart Associated angina: with unstable angina Hypertension I10 (2) Coronary artery disease Coronary Disease-Associated Artery/Lesion type: [place] artery [place] vs. transplanted heart: [place] heart Associated angina: with unstable angina Qualified Code(s): I25.110 - Atherosclerotic heart disease of [place] coronary artery with unstable angina pectoris
[2024-03-08] MEDS: ATROPINE SULFATE 0.1 MG/ML 10ML SYR IV PRN (17:25)
--- NOTE | 2024-03-09 08:02 | History & Physical Bridge Note ---
Date of Service March 09, 2024 History & Physical Bridge Note I have examined the patient, reviewed the History & Physical and in the interval since the performance of the History & Physical I have noted the following changes of clinical significance: no changes noted. We will plan a dual-chamber pacemaker implantation. I reviewed the indications, procedure, risks and alternatives with the patient and his son who is power of health care attorney, and answered all questions. Patient and his son understand and agree to the procedure. Consent obtained. I also reviewed the risks and use of sedation, patient and his son understand and consent obtained.
--- NOTE | 2024-03-09 08:03 | Pre Anesthesia Assessment ---
Date of Service March 09, 2024 Pre Sedation Assessment Vital Signs Temp Pulse Pulse Resp BP BP Pulse Ox 03/09/24 07:42 44 L 03/09/24 07:15 37.0 C 52 L 14 129/74 96 03/09/24 02:26 36.6 C 49 L 18 159/73 H 96 03/08/24 22:41 36.5 C 49 L 18 159/80 H 96 03/08/24 21:35 49 L 03/08/24 19:06 36.7 C 46 L 18 159/65 H 97 03/08/24 15:26 36.6 C 56 L 22 119/69 95 03/08/24 15:14 57 L 03/08/24 10:33 36.5 C 58 L 22 123/68 95 O2 Del Method 03/09/24 07:42 03/09/24 07:15 Room Air 03/09/24 02:26 Room Air 03/08/24 22:41 Room Air 03/08/24 21:35 03/08/24 19:06 Room Air 03/08/24 15:26 Room Air 03/08/24 15:14 03/08/24 10:33 Room Air Cardiovascular + regular rate and + bradycardic Respiratory normal respiratory effort, lungs clear to auscultation Pre-Sedation Airway Assessment Smoking Status: Former smoker Hx Sleep Apnea: No Short, Thick Neck: No Thyromental Distance: > or= 3.5 Finger Breadths Oral Cavity: + WNL Mallampati Class: II ASA: ASA3 NPO Status Date of Last Intake of Fluids: 03/08/24 Time of Last Intake of Fluids: 20:00 Date of Last Intake of Solid Food: 03/08/24 Time of Last Intake of Solid Foods: 20:00 Procedure Planning Contraindications for Sedation: none Current Medications Reviewed: Yes Notes The planned sedation has been discussed with the patient. Informed Consent was obtained. I have identified the patient, determined the appropriateness of sedation and have assessed the patient immediately prior to the procedure. All medicine(s) and interventions are by my order.
[2024-03-09] MEDS: LIDOCAINE 1% LOCAL 20 ML VIAL ONE (09:31)
[2024-03-09] MEDS: VANCOMYCIN HCL 1000MG/20ML VIAL ONE (09:33)
[2024-03-09] MEDS: WATER, STERILE FOR INJ 10 ML VIAL ONE (09:33)
[2024-03-09] MEDS: ceFAZolin 330 MG/ML 1 GM VIAL ONE (09:33)
[2024-03-09] MEDS: fentaNYL citrate PF 100 MCG/2 ML VIAL ONE (09:34)
--- NOTE | 2024-03-09 09:34 | Electrophysiology Report ---
Date of Service March 09, 2024 Electrophysiology Procedure Electrophysiology Procedure Report Preoperative diagnosis: Second and third-degree AV block Postoperative diagnosis: Same Procedure: Dual-chamber left bundle branch pacemaker implantation Surgeon: Don Harper MD Estimated blood loss: 20 cc Complications: None Disposition: Manager Spring recovery Procedure details: After obtaining informed consent for the procedure, the patient was brought to the laboratory and prepped and draped in the standard sterile manner. The left prepectoral region was anesthetized with 1% lidocaine local anesthetic and left axillary venipuncture was performed by percutaneous technique and a guidewire placed through the left subclavian vein into the superior vena cava. The area was further infiltrated with 1% lidocaine local anesthetic and a 5 cm incision was made parallel to the left clavicle and 2 cm below it and carried down to the anterior pectoralis fascia. A pacemaker pocket was formed by blunt dissection anterior to the pectoralis fascia and a vancomycin-soaked sponge was placed in the pocket. A 9 [place] Medtronic lead introducer was placed over the guidewire into the left subclavian vein, the dilator and guidewire were removed and a bipolar active fixation steroid tipped atrial lead was advanced through the introducer into the superior vena cava. A guidewire was placed through the introducer and the introducer was stripped from the lead and guidewire. The atrial lead was temporarily positioned in the right ventricle for backup pacing. A 7 [place] Medtronic lead introducer was placed over the guidewire into the left subclavian vein, the dilator and guidewire were removed. A C315 His 02 septal sheath was advanced through the introducer over a guidewire and advanced into the right ventricular outflow tract. The guidewire and dilator were removed and the sheath was positioned in a mid septal location. A bipolar active fixation steroid tipped ventricular lead was advanced through the introducer and rotated to advance the screw into the septum. Septal penetration was confirmed by electrogram morphology. Pacing and sensing thresholds were evaluated in unipolar and bipolar configuration and are noted on the data sheet. The septal sheath was stripped away from the lead. The atrial lead was then removed from the right ventricle. Using a curved stylette the atrial lead was positioned in the region of the atrial appendage and the screw extended fixing the lead in position. Pacing and sensing thresholds were evaluated in bipolar configuration and are recorded on the implant data sheet. Once the leads were in position they were attached to the anterior pectoralis fascia using 2 sutures of 2-0 silk around each lead collar. The vancomycin soaked sponge was removed from the pocket, hemostasis was obtained, the pacemaker was attached to the leads and placed in the pocket with the leads coiled beneath it. The incision was closed with a running double subcutaneous closure of 3-0 Vicryl absorbable suture, followed by running subcuticular skin closure of 4-0 Vicryl absorbable suture. Bacitracin ointment was placed on the incision and a dressing applied. [facility] [place]rophysiology codes Indication for Procedure (1) AVB (atrioventricular block): Pacing Procedure 1: Pacin Insert/Replace Pacer A & V PG Moderate Sedation Codes Moderate Sedation Codes Procedure 1: Sedation/Anesthesia: 06177 Mod Sedation by the same physician;Init15 Min Child Age 5 & Up Procedure 2: Sedation/Anesthesia: 30364 Mod Sedation by the same physician; Ea [id number] Minutes
[2024-03-09] MEDS: MIDAZOLAM HCL 1 MG/ML 2ML VIAL ONE (09:35)
[2024-03-09 11:13] LABS: Hematocrit (blood only) 41.1 % (42.0-52.0); Hemoglobin 13.6 g/dl (14.0-18.0); Mean Corpuscular Hemoglobin 28.7 pg (25.0-34.0); Mean Corpuscular Hgb Conc 33.1 g/dL (32.0-36.0); Mean Corpuscular Volume 86.7 fL (80.0-100.0); Mean Platelet Volume 9.7 fL (9.4-12.4); Platelet Count 246 K/uL (130-400); RDW Coefficient of Variation 13.1 % (11.5-14.5); RDW Standard Deviation 41.1 fL (36.4-46.3); Red Blood Count 4.74 M/uL (4.70-6.10); White Blood Count 12.89 K/ul (4.8-10.8)
[2024-03-09 11:37] LABS: Calcium 9.2 mg/dl (8.6-10.3)
[2024-03-09 11:43] LABS: BUN Creatinine Ratio 12.6 (10-20); Creatinine Clr Calc Pharmacy 47.7 ml/min; Est GFR (African American) 64.6 ml/min; Est GFR (Non-African American) 55.8 ml/min
--- NOTE | 2024-03-09 13:27 | Post Anesthesia Assessment ---
Date of Service March 09, 2024 Post Sedation Assessment Vital Signs Temp Pulse Pulse Resp BP BP Pulse Ox 03/09/24 11:00 62 03/09/24 09:55 60 18 147/82 H 94 03/09/24 09:40 60 18 144/85 H 94 03/09/24 07:42 44 L 03/09/24 07:15 37.0 C 52 L 14 129/74 96 03/09/24 02:26 36.6 C 49 L 18 159/73 H 96 03/08/24 22:41 36.5 C 49 L 18 159/80 H 96 03/08/24 21:35 49 L 03/08/24 19:06 36.7 C 46 L 18 159/65 H 97 03/08/24 15:26 36.6 C 56 L 22 119/69 95 03/08/24 15:14 57 L O2 Del Method 03/09/24 11:00 03/09/24 09:55 Room Air 03/09/24 09:40 Room Air 03/09/24 07:42 03/09/24 07:15 Room Air 03/09/24 02:26 Room Air 03/08/24 22:41 Room Air 03/08/24 21:35 03/08/24 19:06 Room Air 03/08/24 15:26 Room Air 03/08/24 15:14 Recovery Score Activity: Moves 4 extremities Respiration: Deep Breath/Cough Circulation: +/-20% PreAnes Value Consciousness: Fully Awake Oxygen Saturation: > 92% On Room Air Post Anesthesia Score: 10 Discharge Sedation Level of Care: Fast Track Phase II Post Sedation Plan On clinical assessment, the patient appears to have tolerated the sedation without complications. Patient is recovering as anticipated. Patient will continue to be monitored by nursing and may be discharged when sedation discharge criteria are met per below protocol. Upon Completions of procedure up to 15 minutes continue every 5 minute vital signs and the P.A.R. score; then discharge to a Phase I or Fast Track to Phase II per the following guidelines: * Discharge Patient to appropriate Phase II area if PAR is 8 or greater or return to pre- procedure baseline. The post - procedure orders will be as directed. * If PAR score is less than 8 or not return to pre-procedure baseline then patient will follow Phase I monitoring till PAR is reached for Phase II. The Phase I may be done in procedure room or may call to secure a Phase I area. * If naloxone or flumazenil are used for reversal, hold in Phase I for continued monitoring from when last reversal dose was given for a minimum of 60 minutes or longer pending the nurse and/or physician discretion of patient condition before discharge to Phase II. Please call the Sedation Physician to re-evaluate and complete post-note for discharge to Phase II area. Do NOT discharge from procedure sedation or Phase 1 until post- sedation evaluation note is complete by procedure /sedation MD Sedation Discharge Instructions to be given to the patient at discharge to home.
[2024-03-09] MEDS: oxyCODONE/ACETAMINOPHEN 5mg/325mg TAB PO PRN (13:43)
--- NOTE | 2024-03-09 14:08 | Hospitalist Progress Note ---
Date of Service March 09, 2024 Assessment & Plan (1) Symptomatic bradycardia: Plan: Presented with symptomatic bradycardia - HR 30-50 with sinus pause noted on monitor. - Patient is NOT on beta blockers or calcium channel blockers. No tick bites. No recent illness. - He does have some underlying cardiac conduction disease with pre-existing RBBB. - Electrolytes are WNL as is troponin and TSH. Random cortisol level is 14. - Bradycardia responsive to dose of Atropine. Rate now improved to 50's. - ECG revealed episodes of 21 AV conduction and complete heart block. - Echocardiogram revealed EF=60-65%, no regional wall abnormalities. - Cardiology consulted, appreciate recommendations > Permanent pacemaker placed with Dr. Harper on 03/09/2024. > HR in 60s since. Per review of report, patient tolerated procedure well with no complications. (2) Confusion: Plan: Patient's son reports worsening confusion on admission. - Electrolytes are WNL as is TSH. No clear evidence of infection. - CT of the head is unremarkable. - Patient returned to baseline mental status. Transient confusion on admission was most likely due to poor perfusion from bradycardia. Plan Reviewed telemetry s/p pacemaker placement CHRONIC MEDICAL CONDITIONS: CAD - patient with CAD s/p PCI x 2 remotely. No chest pain. EKG with no acute ischemic changes. Troponin x 1 negative -Continue ASA 81mg po daily -Statin intolerant -No beta blockers on board GERD - chronic. stable -Continue Prevacid PMR - chronic. -Continue Prednisone 5mg po daily BPH - chronic -Continue Terazosin SUMAYA - patient was evaluated by Sleep/Pulmonary medicine in the past. Is to use CPAP 5cmH20. He is fairly non-compliant per review 01/06/24 -CPAP qHS VTE PPx: encourage ambulation. Would initiate chemoprophylaxis if prolonged hospital stay CODE STATUS: Full code Admission and Anticipated Discharge Date Admission Date: March 07, 2024 Subjective Patient seen and evaluated at bedside. He had dual-chamber pacemaker placed with Dr. Harper this morning. Per report, patient tolerated procedure well with no complications. Heart rate has remained in 60s since then. Patient reports some postop discomfort, well-controlled with medication. Discussed plan to monitor tonight, patient is agreeable. He denies lightheadedness, dizziness, shortness of breath, chest pain, nausea. No additional complaints at this time. Physical Exam Physical Exam: General: No acute distress, nondiaphoretic, well-developed, well-nourished. Skin: The skin was without rashes, erythema, edema, or bruising. Left arm in postop sling. Cardiac: Regular rate and rhythm. HR in 60s. No murmurs gallops or rubs. S/p pacemaker placement. Dressing in place, clean, dry, intact. Pulm: Clear to auscultation bilaterally without wheezes, rales or rhonchi. No respiratory distress. 94% on room air. Abdominal: Soft, nontender, nondistended. Bowel sounds present. Neuro: A&O x3. No focal neurological deficits. Results & Data Results & Data Vital Signs (Past 12 Hours) Vital Signs Temp Pulse Pulse Resp BP BP Pulse Ox 03/09/24 11:00 62 03/09/24 09:55 60 18 147/82 H 94 03/09/24 09:40 60 18 144/85 H 94 03/09/24 07:42 44 L 03/09/24 07:15 37.0 C 52 L 14 129/74 96 03/09/24 02:26 36.6 C 49 L 18 159/73 H 96 O2 Del Method 03/09/24 11:00 03/09/24 09:55 Room Air 03/09/24 09:40 Room Air 03/09/24 07:42 03/09/24 07:15 Room Air 03/09/24 02:26 Room Air Laboratory Results Reviewed CBC Reviewed BMP Diagnostic Findings Reviewed ECGs and electrophysiology procedure report PG Care Time/CCT Total # of Minutes Spent Total Time Spent with Patient: Total time spent is greater than 50% in coordination of care (as documented) at patient's floor/unit and/or counseling patient: Coding Level of Care Code 00562 SUB INP/OBS CARE 2/35MIN Diagnoses Symptomatic bradycardia R00.1 Confusion R41.0
--- NOTE | 2024-03-09 22:08 | Electrocardiogram Report ---
Test Reason : Blood Pressure : / mmHG Vent. Rate : 055 BPM Atrial Rate : 055 BPM P-R Int : 306 ms QRS Dur : 138 ms QT Int : 420 ms P-R-T Axes : 056 -42 049 degrees QTc Int : 401 ms Sinus bradycardia with 1st degree A-V block Left axis deviation Right bundle branch block Abnormal ECG When compared with ECG of 29-OCT-2022 09:53, Premature atrial complexes are no longer Present Confirmed by Ortiz Musa ([id number]) on 03/09/2024 10:07:51 PM Referred By: REFERRED SELF Confirmed By:Ortiz Musa
--- NOTE | 2024-03-09 23:12 | Electrocardiogram Report ---
Test Reason : Blood Pressure : / mmHG Vent. Rate : 060 BPM Atrial Rate : 060 BPM P-R Int : 132 ms QRS Dur : 144 ms QT Int : 424 ms P-R-T Axes : 000 017 076 degrees QTc Int : 424 ms AV dual-paced rhythm Abnormal ECG When compared with ECG of 07-MAR-2024 17:14, Electronic ventricular pacemaker has replaced Sinus rhythm Vent. rate has increased BY 25 BPM Confirmed by Ortiz Musa ([id number]) on 03/09/2024 11:11:42 PM Referred By: REFERRED SELF Confirmed By:Ortiz Musa
--- NOTE | 2024-03-09 23:15 | Electrocardiogram Report ---
Test Reason : Blood Pressure : / mmHG Vent. Rate : 062 BPM Atrial Rate : 062 BPM P-R Int : 142 ms QRS Dur : 152 ms QT Int : 444 ms P-R-T Axes : 000 -75 048 degrees QTc Int : 450 ms AV dual-paced rhythm Abnormal ECG When compared with ECG of 09-MAR-2024 09:50, Vent. rate has increased BY 2 BPM Confirmed by Ortiz Musa ([id number]) on 03/09/2024 11:14:40 PM Referred By: REFERRED SELF Confirmed By:Ortiz Musa
[2024-03-10 06:15] LABS: Hematocrit (blood only) 41.7 % (42.0-52.0); Hemoglobin 13.8 g/dl (14.0-18.0); Mean Corpuscular Hemoglobin 28.4 pg (25.0-34.0); Mean Corpuscular Hgb Conc 33.1 g/dL (32.0-36.0); Mean Corpuscular Volume 85.8 fL (80.0-100.0); Mean Platelet Volume 9.4 fL (9.4-12.4); Platelet Count 242 K/uL (130-400); RDW Coefficient of Variation 12.9 % (11.5-14.5); RDW Standard Deviation 39.9 fL (36.4-46.3); Red Blood Count 4.86 M/uL (4.70-6.10); White Blood Count 10.91 K/ul (4.8-10.8)
[2024-03-10 06:35] LABS: BUN Creatinine Ratio 12.4 (10-20); Calcium 9.2 mg/dl (8.6-10.3); Creatinine Clr Calc Pharmacy 50.2 ml/min; Est GFR (African American) 68.8 ml/min; Est GFR (Non-African American) 59.4 ml/min
[2024-03-10] MEDS: ACETAMINOPHEN 325 MG TAB PO PRN (08:25)
--- NOTE | 2024-03-10 08:29 | XRay Report ---
XR chest 2V PA/lateral CLINICAL HISTORY: EXACT TIME ORDERED Evaluate for pneumothorax and l TECHNIQUE: 2 views of the chest were obtained. Comparison: Comparison is made to chest radiograph 03/07/2024 FINDINGS: An implanted pacemaker is seen. The cardiomediastinal silhouette is normal. The lungs are clear. No e vidence of pleural effusion or pneumothorax. Left shoulder radiograph is seen. IMPRESSION: No acute chest disease. ACT 112: Negative or not required by law. Electronically signed by: Lenny Krause M.D. 03/10/2024 8:27 AM
--- NOTE | 2024-03-10 13:22 | Cardiology Progress Note ---
Date of Service March 10, 2024 Assessment & Plan (1) S/P placement of cardiac pacemaker: (2) AVB (atrioventricular block): Plan Patient is doing well status post left bundle branch block dual-chamber pacemaker by Dr. Burton yesterday. Okay for discharge with follow-up by Dr. Burton on Tuesday. Reviewed activity limitations and dressing care with the patient prior to his discharge. No change in his usual medical regimen Admission and Anticipated Discharge Date Admission Date: March 07, 2024 Subjective Uneventful night. Pacer interrogation this morning showed appropriate function. Wound site benign. Patient denied chest pain, palpitations, or lightheadedness. Noted that he felt mildly nauseous when walking around before but he felt well at the time my evaluation and was enjoying lunch. Physical Exam Physical Exam: No distress. Afebrile. BP 150/87 mmHg. Pulse 60 bpm regular. Respirations 18 unlabored. Skin: no ecchymoses or generalized lesions. HEENT: unremarkable. Neck: JVP at the clavicle at 90 degrees, no carotid bruits. Chest: Left subclavian pacer site benign, bandage clean and dry. Lungs: clear. Cardiac: regular rhythm, normal S1-2, no murmur. Abdomen: benign. Extremities: no edema, pulses intact. Neurologic: normal affect and conversation, nonfocal. Results & Data Vital Signs (Past 12 Hours) Vital Signs Temp Pulse Pulse Resp BP BP Pulse Ox 03/10/24 11:14 97.9 F 66 18 150/87 H 96 03/10/24 07:54 60 03/10/24 07:45 03/10/24 07:00 97.5 F L 60 16 155/91 H 93 03/10/24 03:50 97.9 F 60 20 138/88 96 O2 Del Method 03/10/24 11:14 Room Air 03/10/24 07:54 03/10/24 07:45 Room Air 03/10/24 07:00 Room Air 03/10/24 03:50 Room Air PG Care Time/CCT Total # of Minutes Spent Total Time Spent with Patient: Total time spent is greater than 50% in coordination of care (as documented) at patient's floor/unit and/or counseling patient: Coding Level of Care Code 29795 SUB INP/OBS CARE 2/35MIN Diagnoses S/P placement of cardiac pacemaker Z95.0 AVB (atrioventricular block) I44.30
[2024-03-10] MEDS ORDERED: predniSONE 10 MG TABLET PO STA (14:42)
--- NOTE | 2024-03-10 19:46 | Discharge Summary ---
Discharge Summary Date of Service March 10, 2024 Principal Dx & Hospital Course #1 = Principal Diagnosis (1) Symptomatic bradycardia: Presented with symptomatic bradycardia - HR 30-50 with sinus pause noted on monitor. - Patient is NOT on beta blockers or calcium channel blockers. No tick bites. No recent illness. - He does have some underlying cardiac conduction disease with pre-existing RBBB. - Electrolytes are WNL as is troponin and TSH. Random cortisol level is 14. - Bradycardia responsive to dose of Atropine. Rate improved to 50's. - ECG revealed episodes of 21 AV conduction and complete heart block. - Echocardiogram revealed EF=60-65%, no regional wall abnormalities. - Cardiology consulted, appreciate recommendations > Permanent pacemaker placed with Dr. Harper on 03/09/2024. > HR in 60s since. Per review of report, patient tolerated procedure well with no complications. > Follow-up appointment scheduled for 03/12/[address] Harper. - Due to PMR and daily 5 mg prednisone usage, stress taper added. > Recommended additional 30 mg on 03/10, additional 20 mg on 03/11, additional 15 mg on 03/12, additional 10 mg on 03/13. Then return to typical 5 mg daily dosing starting 03/14/24. (2) Confusion: Patient's son reports worsening confusion on admission. - Electrolytes are WNL as is TSH. No clear evidence of infection. - CT of the head is unremarkable. - Patient returned to baseline mental status. Transient confusion on admission was most likely due to poor perfusion from bradycardia. Plan CHRONIC MEDICAL CONDITIONS: CAD - patient with CAD s/p PCI x 2 remotely. No chest pain. EKG with no acute ischemic changes. Troponin x 1 negative -Continue ASA 81mg po daily -Statin intolerant -No beta blockers on board GERD - chronic. stable -Continue Prevacid PMR - chronic. -Continue Prednisone 5mg po daily BPH - chronic -Continue Terazosin SUMAYA - patient was evaluated by Sleep/Pulmonary medicine in the past. Is to use CPAP 5cmH20. He is fairly non-compliant per review 01/06/24 -CPAP qHS CODE STATUS: Full code Notes For Next Care Provider Patient had permanent pacemaker placed on 03/09/2024 due to symptomatic bradycardia. Cardiology follow-up appointment on 03/12/2024 Medication Changes From Visit Stress prednisone taper x4 days in setting of chronic prednisone usage Admission HPI Per Admitting Provider Germán Dreibelbis is an 83-year-old male multiple medical comorbidities to include hypertension, hyperlipidemia, CAD, polymyalgia rheumatica on daily prednisone, COPD and SUMAYA presenting from home with feeling ill. Patient's son lives with him. Patient was in his usual state of health earlier today. He attended an eye appointment by himself earlier in the day and also accompanied his son to visit a client. Later in the day he was home by himself and he called his son saying that "something isn't right". His son found him kneeling on the floor in the home, seemingly somewhat confused. In the ambulance patient did clutch his chest at one point saying "something isn't right" but he denied chest pain, palpitations or SOB. In the ER he was found to be in sinus bradycardia with HR 30-50's. He did have a prolonged sinus pause during which nursing noted that he was somewhat unresponsive, staring off and became pale in color. Patient with no complaints at this time. He would like to go home. ER Course: Atropine 1mg IV Hydrocortisone 100mg IV NSS x 1L Pepcid 20mg IV Admission Exam Per Admitting Provider General: patient resting comfortably, NAD, non-toxic in appearance, AA&O x 4 Skin: warm, dry, intact, no rashes or lesions HEENT: NC/AT, PERRL, EOMI, anicteric sclera, conjunctiva without injection, external ear normal to inspection and nontender, nares patent, moist mucus membranes, dentition intact, no oropharyngeal lesions, neck supple, trachea midline, no LAD, no thyromegaly, no JVD Heart: +S1/S2, regular, bradycardic, no m/r/g Lungs: equal air entry bilaterally, no rales/rhonchi/wheezes Abd: +BS, soft, NT/ND, no masses/organomegaly/ascites Ext: warm, 2+ pulses in UE/LE bilaterally, no clubbing/cyanosis, trace bilateral LE edema Neuro: nonfocal, patient AA&O x 4, speech intact, no facial droop, moving all extremities on command with equal strength 5/5 Patient is somewhat repetitive - asks the same question several times Discharge Exam General: No acute distress, nondiaphoretic, well-developed, well-nourished. Skin: The skin was without rashes, erythema, edema, or bruising. Left arm in postop sling. Cardiac: Regular rate and rhythm. HR in 60s. No murmurs gallops or rubs. S/p pacemaker placement. Dressing in place, clean, dry, intact. Pulm: Clear to auscultation bilaterally without wheezes, rales or rhonchi. No respiratory distress. 94% on room air. Abdominal: Soft, nontender, nondistended. Bowel sounds present. Neuro: A&O x3. No focal neurological deficits. Updated Medication List Medication Instructions Recorded Confirmed Type aspirin 81 mg tablet,delayed 81 mg PO DAILY 11/24/18 03/07/24 History release lansoprazole 30 mg capsule,delayed 30 mg PO BID 08/27/19 03/07/24 History release fluticasone propionate 50 2 sprays intranasal QAM PRN 10/27/22 03/07/24 History mcg/actuation nasal Congestion spray,suspension (Flonase Allergy Relief) terazosin 1 mg capsule 1 mg PO BID 04/21/23 03/07/24 History acetaminophen 500 mg tablet 1,000 mg PO DIRECTED PRN Pain 03/07/24 03/07/24 History (Tylenol Extra Strength) cyanocobalamin (vitamin B-12) 1,000 mcg PO DAILY 03/07/24 03/07/24 History 1,000 mcg tablet (Vitamin B-12) prednisone 5 mg tablet 5 mg PO QAM RHEUMATIC DISEASE 03/07/24 03/07/24 History Hospital Stay Data Consultations 03/07/24 19:05 ED Decision to Admit Stat 03/07/24 19:45 Consult Cardiology Routine Procedures Performed Operation Date: 03/09/24 08:00 Actual Procedures p Pacer with A/V Leads (Dual) - Don Harper MD Diagnostic Imagining Performed 03/07/24 18:07 CT angio head w con Stat CT angio neck with con Stat CT head/brain wo con Stat 03/09/24 06:45 EP Lab Images for PACS ONCE Pending Results Patient Have Any Pending Studies at Discharge: No Discharge Instructions Given to Patient (Per Discharging Provider) Mr. Daniel, Vladimir were admitted to the hospital due to bradycardia (low heart rate). Your EKG revealed a first-degree AV block and right bundle branch block. Your echocardiogram revealed normal ejection fraction of 60-65%, with no regional wall abnormalities. You were seen and evaluated by cardiology. They placed a permanent pacemaker on 03/09/2024. You tolerated this procedure well and there were no complications. Your heart rate has remained stable since then. Upon discharge from the hospital: * Please take prednisone taper: > Take extra 20 mg of prednisone on 03/11, take extra 15 mg of prednisone on 03/12, take extra 10 mg of prednisone on 03/13. You can resume your normal 5 mg daily prednisone on 03/14. * Follow cardiology's recommendations listed below in regards to activity level and special care instructions. * Follow-up with cardiology in outpatient office. Your appointment is scheduled for 03/12/2024 at 10 AM. * Continue your medications as prescribed. There have been no medication changes from this hospitalization. * Contact your PCP or curator of education if you notice that your incision is not healing, signs of infection including redness/swelling/drainage/increased warmth at the incision site, or if you feel that your pacemaker feels loose or like it is wiggling in the pocket under the skin. Please return to the hospital if you experience any of the following: Chest pain, trouble breathing, rapid pulse or pounding heartbeat, shortness of breath, fever of 100.4 or higher, or passing out. It was a pleasure taking care of you while you were in the hospital, Rosio Triana PA-C Total Time Total Time Spent Total Time Spent (In Minutes): Greater than 30 minutes spent completing this discharge process including direct patient care, medication reconciliation, documentation, review of labs and images, and coordination of care. Coding Level of Care Code 95100 INP/OBS DISCH >30 MIN Diagnoses Symptomatic bradycardia R00.1 Confusion R41.0
--- NOTE | 2024-03-12 15:54 | Electrocardiogram Report ---
Test Reason : Blood Pressure : / mmHG Vent. Rate : 065 BPM Atrial Rate : 065 BPM P-R Int : 182 ms QRS Dur : 104 ms QT Int : 402 ms P-R-T Axes : 017 018 068 degrees QTc Int : 418 ms AV dual-paced rhythm with occasional Premature ventricular complexes Abnormal ECG When compared with ECG of 09-MAR-2024 10:40, Premature ventricular complexes are now Present Vent. rate has increased BY 3 BPM Confirmed by Edgar Hidalgo ([id number]) on 03/12/2024 3:53:59 PM Referred By: REFERRED SELF Confirmed By:Doyle Hidalgo
== END 2024-03-10 14:42 | disposition home or self-care (01) | DRG 243 ==
LOC: ED 16:38 → SUATTDRO 19:45 → 2S 19:45
DX: J44.9 Chronic obstructive pulmonary disease, unspecified; E27.40 Unspecified adrenocortical insufficiency; I44.4 Left anterior fascicular block; G47.33 Obstructive sleep apnea (adult) (pediatric); I25.110 Atherosclerotic heart disease of native coronary artery with unstable angina pectoris; Z79.52 Long term (current) use of systemic steroids; I45.10 Unspecified right bundle-branch block; M35.3 Polymyalgia rheumatica; I25.10 Atherosclerotic heart disease of native coronary artery without angina pectoris; I25.2 Old myocardial infarction; N40.0 Benign prostatic hyperplasia without lower urinary tract symptoms; Z79.82 Long term (current) use of aspirin; I12.9 Hypertensive chronic kidney disease with stage 1 through stage 4 chronic kidney disease, or unspecified chronic kidney disease; K21.9 Gastro-esophageal reflux disease without esophagitis; Z87.891 Personal history of nicotine dependence; Z95.5 Presence of coronary angioplasty implant and graft; R41.0 Disorientation, unspecified; E78.5 Hyperlipidemia, unspecified; I44.2 Atrioventricular block, complete; R00.1 Bradycardia, unspecified; I44.0 Atrioventricular block, first degree